=== PATIENT | female | born 1935 | race Caucasian/White ===

== ENCOUNTER 2017-06-02 17:15 | Inpatient (IN) | payer MEDICARE, BC ==
[2017-06-02] MEDS ORDERED: Famotidine 20 MG/2 ML SDV IVPUSH ONE (17:23)
--- NOTE | 2017-06-02 17:23 | EDM.PDOC ---
ED HPI GENERAL MEDICAL PROBLEM - General Chief Complaint: General Stated Complaint: SOB Time Seen by Provider: 06/02/17 17:20 Source of Information: Reports: Patient, Skilled Nursing Records, Old Records ([facility] EMR. No paper hospital chart available.) History Limitations: Reports: Altered Mental Status - History of Present Illness INITIAL COMMENTS - FREE TEXT/NARRATIVE: Patient was brought to the emergency room via transport vehicle from [facility] for evaluation of apparent progressive CHF. Patient is a somewhat poor historian. Blood work was drawn by her regular provider, Marco Petersen, from [facility] [place], earlier today with significantly elevated BNP and history of progressive dyspnea during the last several days. Her son requested that the patient be evaluated in the emergency room despite current comfort care status only. The patient denies any chest pain/pressure, heart flutter, dizziness, orthostasis, orthopnea, diaphoresis, paresthesias, or any other anginal-type symptoms, although progressive dyspnea and decreased exercise tolerance as above. No recent history of abdominal pain, heartburn, nausea, diarrhea, melena, gross hematochezia, or any food intolerance, including fatty foods, etc.. The patient also denies any recent fever, cough, wheezing, etc.. Onset: Gradual, Unknown/Unsure Duration: Day(s): (As above) Location: Reports: Other (No pain) Quality: Reports: Same as Previous Episode (Dyspnea) Improves with: Reports: Rest Worsens with: Reports: Movement (Activity) Context: Reports: Other (As above) Associated Symptoms: Reports: Confusion (Stable baseline), Shortness of Breath. 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: Other (see below) (None) - Related Data Allergies Allergy/AdvReac Type Severity Reaction Status Date / Time simvastatin [From Zocor] Allergy Hives Verified 06/02/17 18:46 Home Meds: Home Meds Cholecalciferol (Vitamin D3) [Vitamin D3] 2,000 units PO Q48H 04/22/17 [History] Apixaban [Eliquis] 2.5 mg PO BID #60 tablet 05/27/17 [Rx] Calcium Carbonate/Vitamin D3 [Calcium 600-Vit D3 800 Tablet] 1 tab PO DAILY #30 tablet 05/27/17 [Rx] Folic Acid 800 mcg PO DAILY #30 tablet 05/27/17 [Rx] Furosemide [Lasix] 40 mg PO DAILY #30 tab 05/27/17 [Rx] Hydroxychloroquine [Plaquenil] 400 mg PO DAILY #30 tablet 05/27/17 [Rx] Methotrexate 7.5 mg PO FR@0800 #10 tablet 05/27/17 [Rx] Metoprolol Succinate [Toprol XL] 6.25 mg PO DAILY #15 tab.er 05/27/17 [Rx] Nitroglycerin [IJP: Nitroglycerin] 0.4 mg SL ASDIRECTED PRN #10 tablet, sublingual 05/27/17 [Rx] Omeprazole 40 mg PO ACBREAKFAST #30 cap.cr 05/27/17 [Rx] Potassium Chloride [Klor-Con 10] 10 meq PO DAILY #30 tab.er 05/27/17 [Rx] Rosuvastatin Calcium 20 mg PO DAILY #15 tablet 05/27/17 [Rx] Timolol Maleate [Timoptic 0.5% Ophth Soln] 1 drop EYEBOTH DAILY #1 bottle [Rx] Acetaminophen [Tylenol Extra Strength] 500 mg PO Q4H PRN 06/02/17 [History] Fluticasone Propionate [Flonase] 1 spray NASBOTH BID 06/02/17 [History] Latanoprost [Latanoprost] 1 drop EYEBOTH BEDTIME 06/02/17 [History] Mag Hydrox/Al Hydrox/Simeth [Antacid Liquid] 30 ml PO DAILY PRN 06/02/17 [ History] Past Medical History HEENT History: Reports: Allergic Rhinitis, Cataract, Glaucoma, Impaired Vision, Macular Degeneration, Other (See Below). Denies: Hard of Hearing, Retinal Detachment Other HEENT History: Patient wears glasses Cardiovascular History: Reports: Afib, Angina, Arrhythmia, CAD, Cardiomyopathy, Heart Failure, Heart Murmur, High Cholesterol, Hypertension, DE, Pulmonary Hypertension, Other (See Below). Denies: Aneurysm, Blood Clots/VTE/DVT, Bypass , Pacemaker, PTCA, Stents Other Cardiovascular History: Non-STEMI 04/23/17 and 06/26/14 with history of multiple MIs in the past and patient apparently a nonoperable candidate. Complete bifascicular bundle-branch block. PVCs. History of combined systolic and diastolic dysfunction with recurrent CHF and cardiomegaly. Moderate mitral valve insufficiency with mild tricuspid valve insufficiency Respiratory History: Reports: Bronchitis, Recurrent, Pneumonia, Recurrent, SOB Gastrointestinal History: Reports: Chronic Constipation, Chronic Diarrhea, GERD Genitourinary History: Reports: Acute Renal Failure, Chronic Renal Insuffiency, Urinary Incontinence, UTI, Recurrent GOLD STAMPER History: Reports: LMP (Approximate): Menopausal Musculoskeletal History: Reports: Arthritis, Back Pain, Chronic, Fracture, Neck Pain, Chronic, Osteoarthritis, Osteoporosis, RA, Other (See Below) Other Musculoskeletal History: right tibial plateau fracture in 2015. Right distal fibula fracture on 11/09/15. Rheumatoid arthritis with current Plaquenil no therapy fracture Neurological History: Reports: Alzheimers Disease, Headaches, Chronic Other Neuro History: Beginning organic brain syndrome Psychiatric History: Reports: Anxiety, Depression Endocrine/Metabolic History: Reports: Osteopenia, Osteoporosis, Vitamin D Deficiency, Other (See Below). Denies: Diabetes, Type I, Diabetes, Type II, Hypothyroidism, IDDM Other Endocrine/Metabolic History: Hyponatremia likely secondary to CHF. Hypomagnesemia Hematologic History: Reports: Anemia, Blood Transfusion(s) Immunologic History: Reports: Immunosuppression (Secondary to Plaquenil therapy) Dermatologic History: Reports: None. Denies: Eczema, Psoriasis, Venous Stasis Dermatitis - Infectious Disease History Infectious Disease History: Reports: Chicken Pox, Measles, Mumps, Shingles - Past Surgical History Head Surgeries/Procedures: Reports: None HEENT Surgical History: Reports: Adenoidectomy, Cataract Surgery, Oral Surgery, Tonsillectomy, Other (See Below) Other HEENT Surgeries/Procedures: Bilateral cataract surgery. Multiple teeth extractions with complete upper dentures and partial lowers Cardiovascular Surgical History: Reports: None. Denies: Varicose, Vascular Surgery Respiratory Surgical History: Reports: None GI Surgical History: Reports: EGD, Other (See Below) Other GI Surgeries/Procedures: Records of EGD not available Female Surgical History: Reports: None Neurological Surgical History: Reports: None Musculoskeletal Surgical History: Reports: Other (See Below) Other Musculoskeletal Surgeries/Procedures:: Excision of apparent multiple rheumatoid nodules from the hands and feet Oncologic Surgical History: Reports: None Dermatological Surgical History: Reports: None - Past Imaging History Past Imaging History: Reports: Angiography (Records not available), Cardiac Echo (Records unavailable), MRI (Right knee on 11/24/14) Social & Family History - Family History Family Medical History: Unobtainable Cardiac: Reports: CAD, Heart Failure, DE, Other (See Below) Other Cardiac Family History: Mother with apparent DE and CHF Neurological: Reports: CVA, Other (See Below) Other Neurological Family History: Father with history of CVA Oncologic: Reports: Bone, Breast, Other (See Below) Other Oncologic Family History: Sister with breast cancer; father with bone cancer - Tobacco Use Smoking Status *Q: Former Smoker Tobacco Use Within Last Twelve Months: No Years of Tobacco use: 28 Packs/Tins Daily: 0.8 Used Tobacco, but Quit: Yes Month Tobacco Last Used: May 2014 Smoking Cessation Information Provided To Patient: No Second Hand Smoke Exposure: No Second Hand Smoke Education Provided: No - Caffeine Use Caffeine Use: Reports: Coffee - Alcohol Use Alcohol Use History: Yes Days Per Week of Alcohol Use: 4 Number of Drinks Per Day: 2 Total Drinks Per Week: 8 Alcohol Use in Last Twelve Months: Yes Alcohol Use Frequency: Socially - Recreational Drug Use Recreational Drug Use: No Drug Use in Last 12 Months: No - Living Situation & Occupation Living situation: Reports: , Extended Care Facility ([facility]) ED ROS GENERAL - Review of Systems Review Of Systems: ROS reveals no pertinent complaints other than HPI. ED EXAM, GENERAL - Physical Exam Exam: See Below Exam Limited By: No Limitations General Appearance: Alert, WD/WN, No Apparent Distress Eye Exam: Bilateral Eye: EOMI, Normal Inspection (No nystagmus. Patient wearing glasses), PERRL Ears: Normal External Exam, Normal Canal, Hearing Grossly Normal, Normal TMs Nose: Normal Inspection, Normal Mucosa, No Blood Throat/Mouth: Normal Inspection, Normal Lips, Normal Gums, Normal Oropharynx, Normal Voice, No Airway Compromise. No: Normal Teeth (Complete upper dentures with partial lowers), Dysphagia, Inflammation, Perioral Cyanosis Head: Atraumatic, Normocephalic. No: Facial Swelling, Facial Tenderness, Sinus Tenderness Neck: Supple, Non-Tender, Full Range of Motion, Carotid Bruit (Mild bilateral carotid bruits versus transmitted heart sounds). No: Limited Range of Motion, Lymphadenopathy (L), Lymphadenopathy (R), Thyromegaly Respiratory/Chest: No Respiratory Distress, No Accessory Muscle Use, Chest Non- Tender, Rales (Mild bilateral basilar rales). No: Pleural Rub, Retractions Cardiovascular: Normal Peripheral Pulses, Regular Rate, Rhythm, No Edema, No Gallop, No JVD, No Rub, Systolic Murmur (23/6 BRET in the aortic and mitral valves). No: Diastolic Murmur, Gallop/S3, Gallop/S4, Friction Rub Peripheral Pulses: 2+: Radial (L), Radial (R), Dorsalis Pedis (L), Dorsalis Pedis (R) GI/Abdominal: Normal Bowel Sounds, Soft, Non-Tender, No Organomegaly, No Distention, No Abnormal Bruit, No Mass. No: Guarding (Female) Exam: Deferred Rectal (Female) Exam: Deferred Back Exam: Normal Inspection, Full Range of Motion. No: CVA Tenderness (L), CVA Tenderness (R), Muscle Spasm Extremities: Normal Range of Motion, Non-Tender, Normal Capillary Refill, Pedal Edema (Trace bilateral pedal/pretibial edema), Other (Mild to moderate rheumatoid changes in her hands. Mild ecchymosis over the extensor surface of the right hand). No: Pineda's Sign Neurological: Alert, CN II-XII Intact, Normal Reflexes (Negative Babinski's), No Motor/Sensory Deficits, Confused (Likely stable baseline mild to moderate organic brain syndrome) Psychiatric: Normal Affect, Normal Mood Skin Exam: Ecchymosis (As above). No: Diaphoretic, Wound/Incision Lymphatic: No Adenopathy EKG INTERPRETATION EKG Date: 06/02/17 Time: 17:41 Rhythm: NSR Rate (Beats/Min): 85 [place]: RAD-Right [place] Deviation (Extended right cardiac axis) P-Wave: Enlarged (Diffuse biphasic P wavesmild) QRS: Other (Complete right bundle branch block/bifascicular bundle-branch block) ST-T: Other (T-wave inversion in leads V3 and V4 with resolution in leads V1 and V2?) QT: Normal [place]/PQ Interval: 0.16 seconds with pulmonary hypertension by EKG Comparison: Change From Previous EKG (As above since last EKG on 05/23/17) EKG Interpretation Comments: 1. Probable anterior wall cardiac ischemia. 2. Complete right bundle branch block/bifascicular bundle-branch block 3. Pulmonary hypertension by EKG Course - Vital Signs Last Recorded V/S: Last Vital Signs Temp 36.8 C 06/02/17 17:20 Pulse 85 06/02/17 19:00 Resp 30 H 06/02/17 19:00 BP 123/87 06/02/17 19:00 Pulse Ox 96 06/02/17 19:00 Vital Signs - 24 hr 06/02/17 06/02/17 06/02/17 17:20 17:45 18:00 Temperature [ 36.8 C Temporal] Pulse, 85 85 84 Peripheral [ Pulse Oximetry] Respiratory 25 H 20 22 H Rate Blood Pressure 109/79 107/73 107/83 [Right Upper Arm] O2 Sat by Pulse 100 99 97 Oximetry 06/02/17 06/02/17 06/02/17 18:15 18:30 19:00 Temperature [ Temporal] Pulse, 84 84 85 Peripheral [ Pulse Oximetry] Respiratory 22 H 25 H 30 H Rate Blood Pressure 111/65 112/60 123/87 [Right Upper Arm] O2 Sat by Pulse 94 L 94 L 96 Oximetry - Orders/Labs/Meds Orders: Active Orders 24 hr Category Date Time Status Cardiac Monitoring [RC] . DIRECTED Care 06/02/17 17:23 Active EKG Documentation Completion [RC] ASDIRECTED Care 06/02/17 17:23 Active Oxygen Therapy, ED [RC] CONTINUOUS Care 06/02/17 17:23 Active Peripheral IV Care [RC] . DIRECTED Care 06/02/17 17:23 Active Pulse Oximetry [RC] CONTINUOUS Care 06/02/17 17:23 Active Up With Assistance [RC] PFP Care 06/02/17 17:23 Active Vital Signs [RC] PFP Care 06/02/17 17:23 Active Nothing per Oral Now Diet [DIET] Diet 06/02/17 Breakfast Active Chest 1V Frontal [CR] Stat Exams 06/02/17 17:23 Taken OCCULT BLOOD DIAGNOSTIC [OP] Stat Lab 06/02/17 18:55 Ordered Enoxaparin [Lovenox] Med 06/02/17 19:00 Active 60 mg SUBCUT Q24H Nitroglycerin/D5W [Nitroglycerin 25 MG/D5W 250 ML] Med 06/02/17 18:15 Active 25 mg in 250 ml IV TITRATE Sodium Chloride 0.9% [Normal Saline] 1,000 ml Med 06/02/17 18:15 Active IV ASDIRECTED Sodium Chloride 0.9% [Saline Flush] Med 06/02/17 17:23 Active 10 ml FLUSH ASDIRECTED PRN Obtain Past Medical Record [OM.PC] Urgent Oth 06/02/17 17:23 Active Peripheral IV Insertion Adult [OM.PC] Stat Oth 06/02/17 17:23 Ordered Resuscitation Status Stat Resus Stat 06/02/17 17:23 Ordered Medication Orders Enoxaparin Sodium (Lovenox) 60 mg SUBCUT Q24H [facility] Last Admin: 06/02/17 18:56 Dose: 60 mg Nitroglycerin/Dextrose (Nitroglycerin 25 Mg/D5w 250 Ml) 25 mg in 250 mls @ 3 mls/hr IV TITRATE ROBERT PRN Reason: 5 MCG/MIN Last Admin: 06/02/17 18:22 Dose: 5 mcg/min, 3 mls/hr Sodium Chloride (Normal Saline) 1,000 mls @ 30 mls/hr IV ASDIRECTED ROBERT Last Admin: 06/02/17 18:22 Dose: 30 mls/hr Sodium Chloride (Saline Flush) 10 ml FLUSH ASDIRECTED PRN PRN Reason: Keep Vein Open Last Admin: 06/02/17 18:14 Dose: 10 ml Admin: 06/02/17 18:02 Dose: 10 ml Labs: Laboratory Tests 06/02/17 06/02/17 06/02/17 Range/Units 17:38 17:38 17:38 WBC 10.4 H (4.0-10.2) K/uL RBC 4.07 (3.77-5.09) M/uL Hgb 13.6 (11.7-15.5) g/dL Hct 41.4 (34.0-46.0) % MCV 101.7 H (84.0-98.0) fL MCH 33.4 H (28.2-33.3) pg MCHC 32.9 (31.7-36.0) g/dL RDW 15.6 H (11.2-14.1) % Plt Count 203 (150-350) K/uL Neut % (Auto) 81.3 H (45.0-80.0) % Lymph % (Auto) 10.5 (10.0-50.0) % [place] % (Auto) 7.2 (2.0-14.0) % Eos % (Auto) 0.4 (0.0-5.0) % Baso % (Auto) 0.6 (0.0-2.0) % Neut # (Auto) 8.45 H (1.40-7.00) K/uL Lymph # (Auto) 1.09 (0.50-3.50) K/uL [place] # (Auto) 0.75 (0.00-1.00) K/uL Eos # (Auto) 0.04 (0.00-0.50) K/uL Baso # (Auto) 0.06 (0.00-0.20) K/uL PT 12.9 H (9.8-11.7) SEC INR 1.2 APTT 28.2 (22.1-29.8) SEC D-Dimer, Quantitative 448 H (0-400) ng/mL Lactic Acid (0.4-2.0) mmol/L Uric Acid (2.6-7.2) mg/dL Magnesium (1.8-2.4) mg/dL Creatine Kinase (26-308) U/L Creatine Kinase Index (0.0-2.5) % CK-MB (CK-2) (0.00-3.60) ng/mL Troponin I (0.000-0.056) ng/mL TSH, Ultra Sensitive (0.358-3.740) mIU/mL 06/02/17 06/02/17 Range/Units 17:38 17:38 WBC (4.0-10.2) K/uL RBC (3.77-5.09) M/uL Hgb (11.7-15.5) g/dL Hct (34.0-46.0) % MCV (84.0-98.0) fL MCH (28.2-33.3) pg MCHC (31.7-36.0) g/dL RDW (11.2-14.1) % Plt Count (150-350) K/uL Neut % (Auto) (45.0-80.0) % Lymph % (Auto) (10.0-50.0) % [place] % (Auto) (2.0-14.0) % Eos % (Auto) (0.0-5.0) % Baso % (Auto) (0.0-2.0) % Neut # (Auto) (1.40-7.00) K/uL Lymph # (Auto) (0.50-3.50) K/uL [place] # (Auto) (0.00-1.00) K/uL Eos # (Auto) (0.00-0.50) K/uL Baso # (Auto) (0.00-0.20) K/uL PT (9.8-11.7) SEC INR APTT (22.1-29.8) SEC D-Dimer, Quantitative (0-400) ng/mL Lactic Acid 1.4 (0.4-2.0) mmol/L Uric Acid 10.1 H (2.6-7.2) mg/dL Magnesium 1.8 (1.8-2.4) mg/dL Creatine Kinase 169 (26-308) U/L Creatine Kinase Index 5.9 H (0.0-2.5) % CK-MB (CK-2) 10.00 H* (0.00-3.60) ng/mL Troponin I 2.667 H* (0.000-0.056) ng/mL TSH, Ultra Sensitive 3.918 H (0.358-3.740) mIU/mL Blood work ordered by [facility] earlier today does show a BUN of 43, creatinine 1.47, AST 63, and BNP of 18,162. Sodium normal at 136 with potassium of 5.1 and CO2 of 23.4 Hemoccult from bowel movement in the emergency room shows brown stool with no gross hematochezia with only trace possible positive Hemoccult Meds: Medications Generic Name Dose Route Start Last Admin Trade Name Freq PRN Reason Stop Dose Admin Enoxaparin Sodium 60 mg 06/02/17 19:00 06/02/17 18:56 Lovenox SUBCUT 60 mg Q24H ROBERT Administration Nitroglycerin/Dextrose 25 mg in 250 mls @ 3 mls/hr 06/02/17 18:15 06/02/17 18 :22 Nitroglycerin 25 Mg/D5w 250 Ml IV 5 mcg/min TITRATE ROBERT 3 mls/hr 5 MCG/MIN Administration Sodium Chloride 1,000 mls @ 30 mls/hr 06/02/17 18:15 06/02/17 18:22 Normal Saline IV 30 mls/hr ASDIRECTED ROBERT Administration Sodium Chloride 10 ml 06/02/17 17:23 06/02/17 18:14 Saline Flush FLUSH 10 ml ASDIRECTED PRN Administration Keep Vein Open Discontinued Medications Generic Name Dose Route Start Last Admin Trade Name Jeanmarieq PRN Reason Stop Dose Admin Famotidine 40 mg 06/02/17 17:23 06/02/17 18:02 Pepcid IVPUSH 06/02/17 17:24 40 mg ONETIME ONE Administration Furosemide 60 mg 06/02/17 18:08 06/02/17 18:13 Lasix IVPUSH 06/02/17 18:09 60 mg NOW ONE Administration - Radiology Interpretation Free Text/Narrative:: 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 No pneumothorax or significant pulmonary infiltrates Departure - Departure Time of Disposition: 19:25 Disposition: Admitted As Inpatient 67 Condition: Poor Clinical Impression: DE, Myocardial infarction, CHF, Congestive heart failure, Renal insufficiency, Elevated LFTs, Peptic reflux disease, Organic brain syndrome, Palliative care patient Hypertension Qualifiers: Hypertension type: essential hypertension Qualified Code(s): I10 - Essential ( primary) hypertension Hyperlipidemia Qualifiers: Hyperlipidemia type: mixed hyperlipidemia Qualified Code(s): E78.2 - Mixed hyperlipidemia Rheumatoid arthritis Qualifiers: Rheumatoid arthritis location: multiple sites Rheumatoid factor presence: unspecified presence Qualified Code(s): M06.9 - Rheumatoid arthritis, unspecified - Discharge Information - Problem List & Annotations (1) DE, Myocardial infarction SNOMED Code(s): 96603187 Code(s): I21.9 - ACUTE MYOCARDIAL INFARCTION, UNSPECIFIED Status: Acute Priority: High Current Visit: Yes Onset Date: ~06/02/17 Annotation/Comment :: Known history of coronary artery disease. Elevated troponin I and CK index. Note comfort care, which was confirmed by the patient's son, Jovan during telephone consultation today. Chest pain protocol was initiated upon patient's arrival to the emergency room, although no true anginal complaints prior to admission. 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 She is apparently a nonoperable candidate with low-dose IV nitroglycerin infusion started in the emergency room. No ASA or Brilinta were given secondary to her current Eliquis Romolo which will now be held, with initiation of cardiac dose subcutaneous Lovenox initiated in the emergency room. Note previous history of atrial fibrillation, PVCs and complete bifascicular bundle-branch block. Cardiac enzymes, etc. will next be repeated in the a.m. secondary to comfort care status. Long-term prognosis poor (2) CHF, Congestive heart failure SNOMED Code(s): 67373689 Code(s): I50.9 - HEART FAILURE, UNSPECIFIED Status: Acute Priority: High Current Visit: Yes Onset Date: ~06/02/17 Annotation/Comment:: High-dose IV Lasix therapy initiated in the emergency room. Comfort care as above with no echocardiogram, cardiology referral, transfer, etc. per their request (3) Palliative care patient SNOMED Code(s): 971072046 Code(s): Z51.5 - ENCOUNTER FOR PALLIATIVE CARE Status: Chronic Priority: Medium Current Visit: Yes Annotation/Comment:: As above (4) Elevated LFTs SNOMED Code(s): 299273951 Code(s): R79.89 - OTHER SPECIFIED ABNORMAL FINDINGS OF BLOOD CHEMISTRY Status: Acute Priority: Medium Current Visit: Yes Onset Date: 06/02/17 Annotation/Comment:: LFTs elevation likely secondary to CHF (5) Hyperlipidemia SNOMED Code(s): 54495025 Code(s): E78.5 - HYPERLIPIDEMIA, UNSPECIFIED Status: Chronic Priority: Medium Current Visit: Yes Annotation/Comment:: Lipid panel and glycosylated hemoglobin in the a.m. Qualifiers: Hyperlipidemia type: mixed hyperlipidemia Qualified Code(s): E78.2 - Mixed hyperlipidemia (6) Hypertension SNOMED Code(s): 69478784 Code(s): I10 - ESSENTIAL (PRIMARY) HYPERTENSION Status: Chronic Priority : Medium Current Visit: Yes Annotation/Comment:: Blood pressure somewhat low in the emergency room. Nitroglycerin infusion with caution Qualifiers: Hypertension type: essential hypertension Qualified Code(s): I10 - Essential (primary) hypertension (7) Organic brain syndrome SNOMED Code(s): 353270098 Code(s): F09 - UNSP MENTAL DISORDER DUE TO KNOWN PHYSIOLOGICAL CONDITION Status: Chronic Priority: Medium Current Visit: Yes Annotation/Comment:: Stable by history (8) Peptic reflux disease SNOMED Code(s): 16946442 Code(s): K21.9 - GASTRO-ESOPHAGEAL REFLUX DISEASE WITHOUT ESOPHAGITIS Status: Chronic Priority: Medium Current Visit: Yes Annotation/Comment:: No abdominal complaints. High-dose IV Pepcid given as GI prophylaxis (9) Renal insufficiency SNOMED Code(s): 944086052 Code(s): N28.9 - DISORDER OF KIDNEY AND URETER, UNSPECIFIED Status: Chronic Priority: Medium Current Visit: Yes Annotation/Comment:: Continue to observe her renal status closely secondary to IV Lasix therapy (10) Rheumatoid arthritis SNOMED Code(s): 89577024 Code(s): M06.9 - RHEUMATOID ARTHRITIS, UNSPECIFIED Status: Chronic Priority: Medium Current Visit: Yes Annotation/Comment:: Stable by history with current Plaquenil Qualifiers: Rheumatoid arthritis location: multiple sites Rheumatoid factor presence: unspecified presence Qualified Code(s): M06.9 - Rheumatoid arthritis, unspecified - Problem List Review Problem List Initiated/Reviewed/Updated: Yes - My Orders Last 24 Hours: My Active Orders 06/02/17 17:23 Cardiac Monitoring [RC] . DIRECTED EKG Documentation Completion [RC] ASDIRECTED Oxygen Therapy, ED [RC] CONTINUOUS Peripheral IV Care [RC] . DIRECTED Pulse Oximetry [RC] CONTINUOUS Up With Assistance [RC] PFP Vital Signs [RC] PFP Chest 1V Frontal [CR] Stat Sodium Chloride 0.9% [Saline Flush] 10 ml FLUSH ASDIRECTED PRN Obtain Past Medical Record [OM.PC] Urgent Peripheral IV Insertion Adult [OM.PC] Stat Resuscitation Status Stat 06/02/17 18:15 Nitroglycerin/D5W [Nitroglycerin 25 MG/D5W 250 ML] 25 mg in 250 ml IV TITRATE Sodium Chloride 0.9% [Normal Saline] 1,000 ml IV ASDIRECTED 06/02/17 18:55 OCCULT BLOOD DIAGNOSTIC [OP] Stat 06/02/17 19:00 Enoxaparin [Lovenox] 60 mg SUBCUT Q24H 06/02/17 Breakfast Nothing per Oral Now Diet [DIET] - Assessment/Plan Admission H&P: Please use this note as an admission H&P Last 24 Hours: My Active Orders 06/02/17 17:23 Cardiac Monitoring [RC] . DIRECTED EKG Documentation Completion [RC] ASDIRECTED Oxygen Therapy, ED [RC] CONTINUOUS Peripheral IV Care [RC] . DIRECTED Pulse Oximetry [RC] CONTINUOUS Up With Assistance [RC] PFP Vital Signs [RC] PFP Chest 1V Frontal [CR] Stat Sodium Chloride 0.9% [Saline Flush] 10 ml FLUSH ASDIRECTED PRN Obtain Past Medical Record [OM.PC] Urgent Peripheral IV Insertion Adult [OM.PC] Stat Resuscitation Status Stat 06/02/17 18:15 Nitroglycerin/D5W [Nitroglycerin 25 MG/D5W 250 ML] 25 mg in 250 ml IV TITRATE Sodium Chloride 0.9% [Normal Saline] 1,000 ml IV ASDIRECTED 06/02/17 18:55 OCCULT BLOOD DIAGNOSTIC [OP] Stat 06/02/17 19:00 Enoxaparin [Lovenox] 60 mg SUBCUT Q24H 06/02/17 Breakfast Nothing per Oral Now Diet [DIET] Assessment:: As above. Plan: As above. Extensive precautions were given to the patient and her son as above, who are in agreement with the treatment plan. The patient will require about 3- 4 days of inpatient/acute care secondary to multiple health problems as above. [facility] assumes care in the a.m.
[2017-06-02] MEDS: Sodium Chloride 0.9% 10 ML Syringe FLUSH PRN ×2 (18:02→18:14)
[2017-06-02] MEDS ORDERED: Furosemide 40 MG/4 ML VIAL IVPUSH ONE (18:08)
[2017-06-02] MEDS ORDERED: Nitroglycerin/D5W 25 MG/250 ML BOTTLE IV SCH (18:15)
[2017-06-02] MEDS ORDERED: Sodium Chloride 0.9% 1,000 ML IV SCH (18:15)
[2017-06-02] MEDS ORDERED: Enoxaparin 60 MG/0.6 ML Syringe SUBCUT SCH (19:00)
[2017-06-02] MEDS ORDERED: Aluminum Hydroxide/Magnesium Hydroxide/Simethicone 355 ML Bottle PO PRN (19:37)
[2017-06-02] MEDS ORDERED: Sodium Chloride 0.9% 10 ML Syringe FLUSH PRN (19:40)
[2017-06-02] MEDS: Acetaminophen 325 MG Tab PO PRN (22:00)
[2017-06-02] MEDS: Latanoprost 0.005% Ophth Soln 2.5 ML Bottle EYEBOTH SCH (22:02)
[2017-06-03] MEDS: Sodium Chloride 0.9% 10 ML Syringe FLUSH PRN ×6 (00:08→17:37)
[2017-06-03] MEDS: Furosemide 40 MG/4 ML VIAL IVPUSH SCH ×2 (00:08→08:10)
[2017-06-03] MEDS ORDERED: Hydroxychloroquine 200 MG Tab PO SCH (08:00)
[2017-06-03] MEDS: Fluticasone Propionate Nasal Spray 16 GM Bottle NASBOTH SCH ×2 (08:08→17:36)
[2017-06-03] MEDS: Timolol Maleate 0.5% Ophth Soln 5 ML Bottle EYEBOTH SCH (08:09)
[2017-06-03] MEDS: Rosuvastatin 10 MG Tab PO SCH (08:09)
[2017-06-03] MEDS: Folic Acid 1 MG Tab PO SCH (08:11)
[2017-06-03] MEDS: Metoprolol Succinate 25 MG Tab.ER PO SCH (08:11)
[2017-06-03] MEDS: Potassium Chloride 20 MEQ Tab.ER PO SCH ×2 (08:11→12:00)
[2017-06-03] MEDS: Acetaminophen 325 MG Tab PO PRN (14:49)
[2017-06-03] MEDS ORDERED: Morphine 2 MG/ML Syringe IVPUSH PRN (15:00)
[2017-06-03] MEDS ORDERED: Sodium Chloride 0.9% Inhalation Soln 3 ML Neb NEB PRN (15:00)
[2017-06-03] MEDS ORDERED: Morphine 2 MG/ML Syringe PRN (15:00)
[2017-06-03] MEDS ORDERED: LORazepam 2 MG/ML MDV IVPUSH PRN (15:00)
[2017-06-03] MEDS ORDERED: methylPREDNISolone Sodium Succinate 125 MG/2 ML SDV IVPUSH ONE (15:05)
[2017-06-03] MEDS ORDERED: AMINOPHYLLINE IV ONE (15:30)
[2017-06-03] MEDS ORDERED: SODIUM CHLORIDE 0.9% IV ONE (15:30)
--- NOTE | 2017-06-03 15:31 | PCM.PN ---
- General Info Date of Service: 06/03/17 Functional Status: Reports: Other (pain right shoulder) - Review of Systems General: Reports: Weakness HEENT: Reports: No Symptoms Pulmonary: Reports: Shortness of Breath Cardiovascular: Reports: No Symptoms Gastrointestinal: Reports: No Symptoms Genitourinary: Reports: No Symptoms Musculoskeletal: Reports: Shoulder Pain Skin: Reports: No Symptoms Neurological: Reports: Weakness Psychiatric: Reports: No Symptoms - Patient Data Vitals - Most Recent: Last Vital Signs Temp 97.7 F 06/03/17 12:00 Pulse 86 06/03/17 12:00 Resp 17 06/03/17 12:00 BP 97/72 06/03/17 12:00 Pulse Ox 94 L 06/03/17 12:00 Weight - Most Recent: 113 lb 12.8 oz I&O - Last 24 Hours: Intake & Output 06/03/17 06/03/17 06/03/17 06:59 14:59 22:59 Intake Total 293 Output Total 900 Balance -607 Lab Results Last 24 Hours: Laboratory Results - last 24 hr 06/03/17 06/03/17 06/03/17 Range/Units 06:48 06:48 06:48 WBC 6.2 (4.0-10.2) K/uL RBC 3.43 L (3.77-5.09) M/uL Hgb 11.4 L D (11.7-15.5) g/dL Hct 34.5 (34.0-46.0) % MCV 100.6 H (84.0-98.0) fL MCH 33.2 (28.2-33.3) pg MCHC 33.0 (31.7-36.0) g/dL RDW 15.2 H (11.2-14.1) % Plt Count 177 (150-350) K/uL Neut % (Auto) 73.5 (45.0-80.0) % Lymph % (Auto) 15.5 (10.0-50.0) % [place] % (Auto) 9.1 (2.0-14.0) % Eos % (Auto) 0.6 (0.0-5.0) % Baso % (Auto) 1.3 (0.0-2.0) % Neut # (Auto) 4.58 (1.40-7.00) K/uL Lymph # (Auto) 0.97 (0.50-3.50) K/uL [place] # (Auto) 0.57 (0.00-1.00) K/uL Eos # (Auto) 0.04 (0.00-0.50) K/uL Baso # (Auto) 0.08 (0.00-0.20) K/uL D-Dimer, Quantitative 264 (0-400) ng/mL Sodium 138 (136-145) mmol/L Potassium 4.0 (3.5-5.1) mmol/L Chloride 101 (98-107) mmol/L Carbon Dioxide 23.8 (21.0-32.0) mmol/L BUN 40 H (7-18) mg/dL Creatinine 1.46 H (0.51-1.17) mg/dL Est Cr Clr Drug Dosing 25.04 mL/min Estimated GFR (MDRD) 34 mL/min Glucose 81 (74-106) mg/dL Hemoglobin A1c (4.3-5.7) % Calcium 9.3 (8.5-10.1) mg/dL Total Bilirubin 0.9 (0.2-1.0) mg/dL AST 43 H (15-37) U/L ALT 41 (12-78) U/L Alkaline Phosphatase 87 (46-116) IU/L Creatine Kinase 128 (26-308) U/L Creatine Kinase Index 6.5 H (0.0-2.5) % CK-MB (CK-2) 8.30 H* (0.00-3.60) ng/mL Troponin I 2.339 H* (0.000-0.056) ng/mL C-Reactive Protein (<=0.9) mg/dL NT-Pro-B Natriuret Pep 47639 H (0-125) pg/mL Total Protein 5.9 L (6.4-8.2) g/dL Albumin 3.2 L (3.4-5.0) g/dL Triglycerides 60 (30-150) mg/dL Cholesterol 75 L (100-200) mg/dL LDL Cholesterol, Calc 22 (0-100) mg/dL HDL Cholesterol 41 (40-60) mg/dL 06/03/17 06/03/17 Range/Units 06:48 06:48 WBC (4.0-10.2) K/uL RBC (3.77-5.09) M/uL Hgb (11.7-15.5) g/dL Hct (34.0-46.0) % MCV (84.0-98.0) fL MCH (28.2-33.3) pg MCHC (31.7-36.0) g/dL RDW (11.2-14.1) % Plt Count (150-350) K/uL Neut % (Auto) (45.0-80.0) % Lymph % (Auto) (10.0-50.0) % [place] % (Auto) (2.0-14.0) % Eos % (Auto) (0.0-5.0) % Baso % (Auto) (0.0-2.0) % Neut # (Auto) (1.40-7.00) K/uL Lymph # (Auto) (0.50-3.50) K/uL [place] # (Auto) (0.00-1.00) K/uL Eos # (Auto) (0.00-0.50) K/uL Baso # (Auto) (0.00-0.20) K/uL D-Dimer, Quantitative (0-400) ng/mL Sodium (136-145) mmol/L Potassium (3.5-5.1) mmol/L Chloride (98-107) mmol/L Carbon Dioxide (21.0-32.0) mmol/L BUN (7-18) mg/dL Creatinine (0.51-1.17) mg/dL Est Cr Clr Drug Dosing mL/min Estimated GFR (MDRD) mL/min Glucose (74-106) mg/dL Hemoglobin A1c 5.5 (4.3-5.7) % Calcium (8.5-10.1) mg/dL Total Bilirubin (0.2-1.0) mg/dL AST (15-37) U/L ALT (12-78) U/L Alkaline Phosphatase (46-116) IU/L Creatine Kinase (26-308) U/L Creatine Kinase Index (0.0-2.5) % CK-MB (CK-2) (0.00-3.60) ng/mL Troponin I (0.000-0.056) ng/mL C-Reactive Protein 1.0 H (<=0.9) mg/dL NT-Pro-B Natriuret Pep (0-125) pg/mL Total Protein (6.4-8.2) g/dL Albumin (3.4-5.0) g/dL Triglycerides (30-150) mg/dL Cholesterol (100-200) mg/dL LDL Cholesterol, Calc (0-100) mg/dL HDL Cholesterol (40-60) mg/dL Jacinto Results Last 24 Hours: Microbiology 06/03/17 08:40 Stool Occult Blood (JACINTO) - Final Stool / Feces NEGATIVE OCCULT BLOOD 06/03/17 08:40 Stool Occult Blood (JACINTO) - Final Stool / Feces NEGATIVE OCCULT BLOOD Med Orders - Current: Current Medications Acetaminophen (Tylenol) 650 mg PO Q4H PRN PRN Reason: Pain Last Admin: 06/03/17 14:49 Dose: 650 mg Al Hydroxide/Mg Hydroxide (Maalox Advanced) 30 ml PO DAILY PRN PRN Reason: gi upset Enoxaparin Sodium (Lovenox) 30 mg SUBCUT Q24H [facility] Famotidine (Pepcid) 20 mg IVPUSH Q24H [facility] Fluticasone Propionate (Flonase) 0 gm NASBOTH BID [facility] Last Admin: 06/03/17 08:08 Dose: 1 spray Folic Acid (Folic Acid) 1 mg PO DAILY [facility] Last Admin: 06/03/17 08:11 Dose: 1 mg Hydroxychloroquine Sulfate (Plaquenil) 200 mg PO DAILY [facility] Aminophylline 300 mg/ Sodium (Chloride) 112 mls @ 200 mls/hr IV ONETIME ONE Stop: 06/03/17 16:03 Latanoprost (Xalatan 0.005% Ophth Soln) 0 ml EYEBOTH BEDTIME [facility] Last Admin: 06/02/17 22:02 Dose: Not Given Lorazepam (Ativan) 0.5 mg IVPUSH Q4H PRN PRN Reason: Dyspnea Methylprednisolone Sodium Succinate (Solu-Medrol) 40 mg IVPUSH Q12HR [facility] Metoprolol Succinate (Toprol Xl) 6.25 mg PO DAILY [facility] Last Admin: 06/03/17 08:11 Dose: 6.25 mg Morphine Sulfate (Morphine) 1 mg IVPUSH Q1H PRN PRN Reason: Dyspnea Morphine Sulfate (Morphine) 0.5 mg .XX Q2H PRN PRN Reason: Dyspnea Rosuvastatin Calcium (Crestor) 20 mg PO DAILY [facility] Last Admin: 06/03/17 08:09 Dose: 20 mg Sodium Chloride (Saline Flush) 10 ml FLUSH ASDIRECTED PRN PRN Reason: Keep Vein Open Last Admin: 06/03/17 15:17 Dose: 10 ml Sodium Chloride (Saline Flush) 10 ml FLUSH Q12HR [facility] Sodium Chloride (Sodium Chloride 0.9%) 3 ml NEB Q2H PRN PRN Reason: Shortness of Breath Sodium Chloride (Sodium Chloride 0.9%) 3 ml INH Q2H PRN PRN Reason: Dyspnea Temazepam (Restoril) 15 mg PO BEDTIME PRN PRN Reason: Insomnia Timolol Maleate (Timoptic 0.5% Ophth Soln) 0 ml EYEBOTH DAILY [facility] Last Admin: 06/03/17 08:09 Dose: 1 drop Discontinued Medications Enoxaparin Sodium (Lovenox) 60 mg SUBCUT Q24H [facility] Last Admin: 06/02/17 18:56 Dose: 60 mg Famotidine (Pepcid) 40 mg IVPUSH ONETIME ONE Stop: 06/02/17 17:24 Last Admin: 06/02/17 18:02 Dose: 40 mg Furosemide (Lasix) 60 mg IVPUSH NOW ONE Stop: 06/02/17 18:09 Last Admin: 06/02/17 18:13 Dose: 60 mg Furosemide (Lasix) 40 mg IVPUSH Q8H [facility] Last Admin: 06/03/17 08:10 Dose: 40 mg Hydroxychloroquine Sulfate (Plaquenil) 400 mg PO DAILY [facility] Last Admin: 06/03/17 08:15 Dose: 400 mg Nitroglycerin/Dextrose (Nitroglycerin 25 Mg/D5w 250 Ml) 25 mg in 250 mls @ 3 mls/hr IV TITRATE [facility] PRN Reason: 5 MCG/MIN Last Admin: 06/02/17 18:22 Dose: 5 mcg/min, 3 mls/hr Sodium Chloride (Normal Saline) 1,000 mls @ 30 mls/hr IV ASDIRECTED [facility] Last Admin: 06/02/17 18:22 Dose: 30 mls/hr Methotrexate (Methotrexate) 7.5 mg PO FR@0800 [facility] Methylprednisolone Sodium Succinate (Solu-Medrol) 80 mg IVPUSH ONETIME ONE Stop: 06/03/17 15:06 Last Admin: 06/03/17 15:17 Dose: 80 mg Potassium Chloride (Klor-Con M20) 20 meq PO TID ROBERT Last Admin: 06/03/17 12:00 Dose: 20 meq Sodium Chloride (Saline Flush) 10 ml FLUSH Q12HR PRN PRN Reason: Keep Vein Open - Exam Quality Assessment: Supplemental Oxygen, DVT Prophylaxis General: Alert, Cooperative, Mild Distress HEENT: Mucous Membr. Moist/[place] Neck: Trachea Midline, No JVD Lungs: Decreased Breath Sounds, Crackles (bibasilar) Cardiovascular: Irregular Rhythm, Murmurs (mitral insufficiency) GI/Abdominal Exam: Soft, Non-Tender, No Distention (Female) Exam: Deferred Back Exam: Other (kyphosis) Extremities: Non-Tender, No Pedal Edema, Limited Range of Motion Skin: Warm, Dry, Intact Neurological: No New Focal Deficit Psy/Mental Status: Alert, Normal Affect, Normal Mood - Problem List & Annotations (1) CHF, Congestive heart failure SNOMED Code(s): 41754443 Code(s): I50.9 - HEART FAILURE, UNSPECIFIED Status: Acute Priority: High Current Visit: Yes Onset Date: ~06/02/17 Annotation/Comment:: High-dose IV Lasix therapy initiated in the emergency room. Comfort care as above with no echocardiogram, cardiology referral, transfer, etc. per their request (2) Elevated LFTs SNOMED Code(s): 629730228 Code(s): R79.89 - OTHER SPECIFIED ABNORMAL FINDINGS OF BLOOD CHEMISTRY Status: Acute Priority: Medium Current Visit: Yes Onset Date: 06/02/17 Annotation/Comment:: LFTs elevation likely secondary to CHF (3) NC, Myocardial infarction SNOMED Code(s): 92960349 Code(s): I21.9 - ACUTE MYOCARDIAL INFARCTION, UNSPECIFIED Status: Acute Priority: High Current Visit: Yes Onset Date: ~06/02/17 Annotation/Comment :: Known history of coronary artery disease. Elevated troponin I and CK index. Note comfort care, which was confirmed by the patient's son, Jovan during telephone consultation today. Chest pain protocol was initiated upon patient's arrival to the emergency room, although no true anginal complaints prior to admission. 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 She is apparently a nonoperable candidate with low-dose IV nitroglycerin infusion started in the emergency room. No ASA or Brilinta were given secondary to her current Eliquis Romolo which will now be held, with initiation of cardiac dose subcutaneous Lovenox initiated in the emergency room. Note previous history of atrial fibrillation, PVCs and complete bifascicular bundle-branch block. Cardiac enzymes, etc. will next be repeated in the a.m. secondary to comfort care status. Long-term prognosis poor (4) Hyperlipidemia SNOMED Code(s): 51511785 Code(s): E78.5 - HYPERLIPIDEMIA, UNSPECIFIED Status: Chronic Priority: Medium Current Visit: Yes Qualifiers: Hyperlipidemia type: mixed hyperlipidemia Qualified Code(s): E78.2 - Mixed hyperlipidemia Annotation/Comment:: Lipid panel and glycosylated hemoglobin in the a.m. (5) Hypertension SNOMED Code(s): 48788059 Code(s): I10 - ESSENTIAL (PRIMARY) HYPERTENSION Status: Chronic Priority : Medium Current Visit: Yes Qualifiers: Hypertension type: essential hypertension Qualified Code(s): I10 - Essential (primary) hypertension Annotation/Comment:: Blood pressure somewhat low in the emergency room. Nitroglycerin infusion with caution (6) Palliative care patient SNOMED Code(s): 657472641 Code(s): Z51.5 - ENCOUNTER FOR PALLIATIVE CARE Status: Chronic Priority: Medium Current Visit: Yes Annotation/Comment:: As above (7) Peptic reflux disease SNOMED Code(s): 33045593 Code(s): K21.9 - GASTRO-ESOPHAGEAL REFLUX DISEASE WITHOUT ESOPHAGITIS Status: Chronic Priority: Medium Current Visit: Yes Annotation/Comment:: No abdominal complaints. High-dose IV Pepcid given as GI prophylaxis (8) Renal insufficiency SNOMED Code(s): 636216429 Code(s): N28.9 - DISORDER OF KIDNEY AND URETER, UNSPECIFIED Status: Chronic Priority: Medium Current Visit: Yes Annotation/Comment:: Continue to observe her renal status closely secondary to IV Lasix therapy (9) Rheumatoid arthritis SNOMED Code(s): 00274983 Code(s): M06.9 - RHEUMATOID ARTHRITIS, UNSPECIFIED Status: Chronic Priority: Medium Current Visit: Yes Qualifiers: Rheumatoid arthritis location: multiple sites Rheumatoid factor presence: unspecified presence Qualified Code(s): M06.9 - Rheumatoid arthritis, unspecified Annotation/Comment:: Stable by history with current Plaquenil (10) Myocardial ischemia SNOMED Code(s): 066015454 Code(s): I25.9 - CHRONIC ISCHEMIC HEART DISEASE, UNSPECIFIED Status: Acute Priority: Medium Current Visit: No Onset Date: 06/26/14 (11) Troponin level elevated SNOMED Code(s): 472785006, 329802840 Code(s): R79.89 - OTHER SPECIFIED ABNORMAL FINDINGS OF BLOOD CHEMISTRY Status: Acute Current Visit: No - Problem List Review Problem List Initiated/Reviewed/Updated: Yes - My Orders Last 24 Hours: My Active Orders 06/03/17 15:00 LORazepam [Ativan] 0.5 mg IVPUSH Q4H PRN Morphine 0.5 mg .XX Q2H PRN Morphine 1 mg IVPUSH Q1H PRN Sodium Chloride 0.9% 3 ml NEB Q2H PRN 06/03/17 15:30 Aminophylline 300 mg Sodium Chloride 0.9% [Normal Saline] 100 ml IV ONETIME 06/03/17 16:00 Sodium Chloride 0.9% 3 ml INH Q2H PRN 06/03/17 19:00 Enoxaparin [Lovenox] 30 mg SUBCUT Q24H 06/03/17 20:00 Sodium Chloride 0.9% [Saline Flush] 10 ml FLUSH Q12HR methylPREDNISolone Sod Succ [Solu-MEDROL] 40 mg IVPUSH Q12HR 06/04/17 05:11 BLOOD GAS VENOUS [BG] Routine CBC WITH AUTO DIFF [HEME] DAILY CMP [COMPREHENSIVE METABOLIC PN,CMP] [CHEM] Routine TROPONIN I [CHEM] Routine 06/04/17 08:00 Hydroxychloroquine [Plaquenil] 200 mg PO DAILY 06/05/17 05:11 CBC WITH AUTO DIFF [HEME] DAILY 06/06/17 05:11 CBC WITH AUTO DIFF [HEME] DAILY - Plan Plan:: 06/03/17 Eva Dent MD Still short of breath. No chest pain. See orders.
[2017-06-03] MEDS ORDERED: Sodium Chloride 0.9% Inhalation Soln 3 ML Neb INH PRN (16:00)
[2017-06-03] MEDS ORDERED: Famotidine 20 MG/2 ML SDV IVPUSH SCH (18:00)
[2017-06-03] MEDS: Latanoprost 0.005% Ophth Soln 2.5 ML Bottle EYEBOTH SCH (19:55)
[2017-06-03] MEDS: Enoxaparin 30 MG/0.3 ML Syringe SUBCUT SCH (19:55)
[2017-06-03] MEDS: methylPREDNISolone Sodium Succinate 40 MG/1 ML SDV IVPUSH SCH (19:56)
[2017-06-03] MEDS: Sodium Chloride 0.9% 10 ML Syringe FLUSH SCH (19:56)
[2017-06-04] MEDS: Temazepam 15 MG Cap PO PRN ×2 (00:33→19:48)
[2017-06-04 06:47] LABS: O2 DELIVERY DEVICE NASAL CANNULA
[2017-06-04 07:22] LABS: BASE EXCESS VENOUS -1 mmol/L ((-2)-3); BICARBONATE,VENOUS 23 mmol/L (23-28); O2 SATURATION VENOUS 99 %; PCO2 VENOUS 34 mmHG (41-51); PH,VENOUS 7.45 (7.31-7.41); PO2 VENOUS 127 mmHG
[2017-06-04] MEDS: Fluticasone Propionate Nasal Spray 16 GM Bottle NASBOTH SCH ×2 (07:27→17:26)
[2017-06-04] MEDS: Metoprolol Succinate 25 MG Tab.ER PO SCH (07:28)
[2017-06-04] MEDS: Folic Acid 1 MG Tab PO SCH (07:28)
[2017-06-04] MEDS: Rosuvastatin 10 MG Tab PO SCH (07:28)
[2017-06-04] MEDS: methylPREDNISolone Sodium Succinate 40 MG/1 ML SDV IVPUSH SCH (07:29)
[2017-06-04] MEDS: Timolol Maleate 0.5% Ophth Soln 5 ML Bottle EYEBOTH SCH (07:29)
[2017-06-04] MEDS: Sodium Chloride 0.9% 10 ML Syringe FLUSH SCH (07:29)
[2017-06-04] MEDS ORDERED: Hydroxychloroquine 200 MG Tab PO SCH (08:00)
--- NOTE | 2017-06-04 18:07 | PCM.PN ---
- General Info Date of Service: 06/04/17 Functional Status: Reports: Pain Controlled - Review of Systems General: Reports: No Symptoms HEENT: Reports: No Symptoms Pulmonary: Reports: Shortness of Breath (still improved but maybe not as good as yesterday after she received the IV medicines) Cardiovascular: Reports: No Symptoms Gastrointestinal: Reports: No Symptoms Genitourinary: Reports: No Symptoms Musculoskeletal: Reports: No Symptoms Skin: Reports: No Symptoms Neurological: Reports: No Symptoms Psychiatric: Reports: No Symptoms - Patient Data Vitals - Most Recent: Last Vital Signs Temp 98 F 06/04/17 16:00 Pulse 88 06/04/17 16:00 Resp 16 06/04/17 16:00 BP 122/79 06/04/17 16:00 Pulse Ox 100 06/04/17 16:00 Weight - Most Recent: 113 lb 0.002 oz I&O - Last 24 Hours: Intake & Output 06/04/17 06/04/17 06/04/17 06:59 14:59 22:59 Intake Total 330 Output Total 200 Balance 130 Lab Results Last 24 Hours: Laboratory Results - last 24 hr 06/04/17 06/04/17 06/04/17 Range/Units 06:26 06:26 06:26 WBC 6.7 (4.0-10.2) K/uL RBC 3.54 L (3.77-5.09) M/uL Hgb 11.8 (11.7-15.5) g/dL Hct 35.8 (34.0-46.0) % MCV 101.1 H (84.0-98.0) fL MCH 33.3 (28.2-33.3) pg MCHC 33.0 (31.7-36.0) g/dL RDW 15.1 H (11.2-14.1) % Plt Count 179 (150-350) K/uL Neut % (Auto) 91.6 H (45.0-80.0) % Lymph % (Auto) 6.5 L (10.0-50.0) % [place] % (Auto) 1.7 L (2.0-14.0) % Eos % (Auto) 0.0 (0.0-5.0) % Baso % (Auto) 0.2 (0.0-2.0) % Neut # (Auto) 6.10 (1.40-7.00) K/uL Lymph # (Auto) 0.43 L (0.50-3.50) K/uL [place] # (Auto) 0.11 (0.00-1.00) K/uL Eos # (Auto) 0.00 (0.00-0.50) K/uL Baso # (Auto) 0.01 (0.00-0.20) K/uL VBG pH 7.45 H (7.31-7.41) VBG pCO2 34 L (41-51) mmHG VBG pO2 127 mmHG VBG HCO3 23 (23-28) mmol/L VBG Total CO2 24 mmol/L VBG O2 Saturation 99 % VBG Base Excess -1 ((-2)-3) mmol/L O2 Delivery Device Nasal cannula Sodium 138 (136-145) mmol/L Potassium 4.2 (3.5-5.1) mmol/L Chloride 102 (98-107) mmol/L Carbon Dioxide 23.8 (21.0-32.0) mmol/L BUN 43 H (7-18) mg/dL Creatinine 1.44 H (0.51-1.17) mg/dL Est Cr Clr Drug Dosing 25.21 mL/min Estimated GFR (MDRD) 35 mL/min Glucose 136 H (74-106) mg/dL Calcium 9.5 (8.5-10.1) mg/dL Total Bilirubin 0.7 (0.2-1.0) mg/dL AST 37 (15-37) U/L ALT 37 (12-78) U/L Alkaline Phosphatase 88 (46-116) IU/L Troponin I 1.818 H* (0.000-0.056) ng/mL Total Protein 6.0 L (6.4-8.2) g/dL Albumin 3.1 L (3.4-5.0) g/dL [place] Results Last 24 Hours: Microbiology 06/03/17 08:40 Helicobacter pylori Antigen - Final Stool / Feces Med Orders - Current: Current Medications Acetaminophen (Tylenol) 650 mg PO Q4H PRN PRN Reason: Pain Last Admin: 06/03/17 14:49 Dose: 650 mg Al Hydroxide/Mg Hydroxide (Maalox Advanced) 30 ml PO DAILY PRN PRN Reason: gi upset Enoxaparin Sodium (Lovenox) 30 mg SUBCUT Q24H [facility] Last Admin: 06/03/17 19:55 Dose: 30 mg Fluticasone Propionate (Flonase) 0 gm NASBOTH BID [facility] Last Admin: 06/04/17 17:26 Dose: 1 spray Folic Acid (Folic Acid) 1 mg PO DAILY [facility] Last Admin: 06/04/17 07:28 Dose: 1 mg Furosemide (Lasix) 40 mg PO DAILY [facility] Isosorbide Mononitrate (Imdur) 15 mg PO BEDTIME [facility] Latanoprost (Xalatan 0.005% Ophth Soln) 0 ml EYEBOTH BEDTIME [facility] Last Admin: 06/03/17 19:55 Dose: 1 drop Lorazepam (Ativan) 0.5 mg IVPUSH Q4H PRN PRN Reason: Dyspnea Metoprolol Tartrate (Lopressor) 12.5 mg PO Q12HR [facility] Morphine Sulfate (Morphine) 1 mg IVPUSH Q1H PRN PRN Reason: Dyspnea Morphine Sulfate (Morphine) 0.5 mg .XX Q2H PRN PRN Reason: Dyspnea Omeprazole (Omeprazole) 20 mg PO DAILY@1200 [facility] Prednisone (Prednisone) 20 mg PO BID [facility] Sodium Chloride (Sodium Chloride 0.9%) 3 ml NEB Q2H PRN PRN Reason: Shortness of Breath Sodium Chloride (Sodium Chloride 0.9%) 3 ml INH Q2H PRN PRN Reason: Dyspnea Temazepam (Restoril) 15 mg PO BEDTIME PRN PRN Reason: Insomnia Last Admin: 06/04/17 00:33 Dose: 15 mg Theophylline (Theophylline Anhydrous) 300 mg PO BID [facility] Timolol Maleate (Timoptic 0.5% Ophth Soln) 0 ml EYEBOTH DAILY [facility] Last Admin: 06/04/17 07:29 Dose: 1 drop Discontinued Medications Enoxaparin Sodium (Lovenox) 60 mg SUBCUT Q24H [facility] Last Admin: 06/02/17 18:56 Dose: 60 mg Famotidine (Pepcid) 40 mg IVPUSH ONETIME ONE Stop: 06/02/17 17:24 Last Admin: 06/02/17 18:02 Dose: 40 mg Famotidine (Pepcid) 20 mg IVPUSH Q24H [facility] Last Admin: 06/03/17 17:37 Dose: 20 mg Furosemide (Lasix) 60 mg IVPUSH NOW ONE Stop: 06/02/17 18:09 Last Admin: 06/02/17 18:13 Dose: 60 mg Furosemide (Lasix) 40 mg IVPUSH Q8H [facility] Last Admin: 06/03/17 08:10 Dose: 40 mg Hydroxychloroquine Sulfate (Plaquenil) 400 mg PO DAILY [facility] Last Admin: 06/03/17 08:15 Dose: 400 mg Hydroxychloroquine Sulfate (Plaquenil) 200 mg PO DAILY [facility] Last Admin: 06/04/17 07:28 Dose: 200 mg Nitroglycerin/Dextrose (Nitroglycerin 25 Mg/D5w 250 Ml) 25 mg in 250 mls @ 3 mls/hr IV TITRATE [facility] PRN Reason: 5 MCG/MIN Last Admin: 06/02/17 18:22 Dose: 5 mcg/min, 3 mls/hr Sodium Chloride (Normal Saline) 1,000 mls @ 30 mls/hr IV ASDIRECTED [facility] Last Admin: 06/02/17 18:22 Dose: 30 mls/hr Aminophylline 300 mg/ Sodium (Chloride) 112 mls @ 200 mls/hr IV ONETIME ONE Stop: 06/03/17 16:03 Last Admin: 06/03/17 16:20 Dose: 200 mls/hr Methotrexate (Methotrexate) 7.5 mg PO FR@0800 [facility] Methylprednisolone Sodium Succinate (Solu-Medrol) 80 mg IVPUSH ONETIME ONE Stop: 06/03/17 15:06 Last Admin: 06/03/17 15:17 Dose: 80 mg Methylprednisolone Sodium Succinate (Solu-Medrol) 40 mg IVPUSH Q12HR [facility] Last Admin: 06/04/17 07:29 Dose: 40 mg Metoprolol Succinate (Toprol Xl) 6.25 mg PO DAILY [facility] Last Admin: 06/04/17 07:28 Dose: 6.25 mg Potassium Chloride (Klor-Con M20) 20 meq PO TID [facility] Last Admin: 06/03/17 12:00 Dose: 20 meq Rosuvastatin Calcium (Crestor) 20 mg PO DAILY [facility] Last Admin: 06/04/17 07:28 Dose: 20 mg Sodium Chloride (Saline Flush) 10 ml FLUSH ASDIRECTED PRN PRN Reason: Keep Vein Open Last Admin: 06/03/17 17:37 Dose: 10 ml Sodium Chloride (Saline Flush) 10 ml FLUSH Q12HR PRN PRN Reason: Keep Vein Open Sodium Chloride (Saline Flush) 10 ml FLUSH Q12HR [facility] Last Admin: 06/04/17 07:29 Dose: 10 ml - Exam Quality Assessment: Supplemental Oxygen, DVT Prophylaxis General: Alert, Cooperative, Mild Distress HEENT: Mucous Membr. Moist/[place] Neck: Trachea Midline, No JVD Lungs: Normal Respiratory Effort, Decreased Breath Sounds, Crackles (no crackles after IV solumedrol and IV aminophine but few crackles today.) Cardiovascular: Irregular Rhythm GI/Abdominal Exam: Soft, Non-Tender, No Distention (Female) Exam: Deferred Back Exam: Normal Inspection, Other (kyphosis) Extremities: Non-Tender, Pedal Edema (minimal) Skin: Warm, Dry, Intact, Ecchymosis (from IV starts) Neurological: No New Focal Deficit Psy/Mental Status: Alert, Normal Affect, Normal Mood - Problem List & Annotations (1) CHF, Congestive heart failure SNOMED Code(s): 19611862 Code(s): I50.9 - HEART FAILURE, UNSPECIFIED Status: Acute Priority: High Current Visit: Yes Onset Date: ~06/02/17 Annotation/Comment:: High-dose IV Lasix therapy initiated in the emergency room. Comfort care as above with no echocardiogram, cardiology referral, transfer, etc. per their request (2) Elevated LFTs SNOMED Code(s): 628864696 Code(s): R79.89 - OTHER SPECIFIED ABNORMAL FINDINGS OF BLOOD CHEMISTRY Status: Acute Priority: Medium Current Visit: Yes Onset Date: 06/02/17 Annotation/Comment:: LFTs elevation likely secondary to CHF (3) [place], Myocardial infarction SNOMED Code(s): 89823292 Code(s): I21.9 - ACUTE MYOCARDIAL INFARCTION, UNSPECIFIED Status: Acute Priority: High Current Visit: Yes Onset Date: ~06/02/17 Annotation/Comment :: Known history of coronary artery disease. Elevated troponin I and CK index. Note comfort care, which was confirmed by the patient's son, Jovan during telephone consultation today. Chest pain protocol was initiated upon patient's arrival to the emergency room, although no true anginal complaints prior to admission. 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 She is apparently a nonoperable candidate with low-dose IV nitroglycerin infusion started in the emergency room. No ASA or Brilinta were given secondary to her current Eliquis Romolo which will now be held, with initiation of cardiac dose subcutaneous Lovenox initiated in the emergency room. Note previous history of atrial fibrillation, PVCs and complete bifascicular bundle-branch block. Cardiac enzymes, etc. will next be repeated in the a.m. secondary to comfort care status. Long-term prognosis poor (4) Hyperlipidemia SNOMED Code(s): 84086209 Code(s): E78.5 - HYPERLIPIDEMIA, UNSPECIFIED Status: Chronic Priority: Medium Current Visit: Yes Qualifiers: Hyperlipidemia type: mixed hyperlipidemia Qualified Code(s): E78.2 - Mixed hyperlipidemia Annotation/Comment:: Lipid panel and glycosylated hemoglobin in the a.m. (5) Hypertension SNOMED Code(s): 64862235 Code(s): I10 - ESSENTIAL (PRIMARY) HYPERTENSION Status: Chronic Priority : Medium Current Visit: Yes Qualifiers: Hypertension type: essential hypertension Qualified Code(s): I10 - Essential (primary) hypertension Annotation/Comment:: Blood pressure somewhat low in the emergency room. Nitroglycerin infusion with caution (6) Palliative care patient SNOMED Code(s): 804452183 Code(s): Z51.5 - ENCOUNTER FOR PALLIATIVE CARE Status: Chronic Priority: Medium Current Visit: Yes Annotation/Comment:: As above (7) Peptic reflux disease SNOMED Code(s): 78073705 Code(s): K21.9 - GASTRO-ESOPHAGEAL REFLUX DISEASE WITHOUT ESOPHAGITIS Status: Chronic Priority: Medium Current Visit: Yes Annotation/Comment:: No abdominal complaints. High-dose IV Pepcid given as GI prophylaxis (8) Renal insufficiency SNOMED Code(s): 435488703 Code(s): N28.9 - DISORDER OF KIDNEY AND URETER, UNSPECIFIED Status: Chronic Priority: Medium Current Visit: Yes Annotation/Comment:: Continue to observe her renal status closely secondary to IV Lasix therapy (9) Rheumatoid arthritis SNOMED Code(s): 65493545 Code(s): M06.9 - RHEUMATOID ARTHRITIS, UNSPECIFIED Status: Chronic Priority: Medium Current Visit: Yes Qualifiers: Rheumatoid arthritis location: multiple sites Rheumatoid factor presence: unspecified presence Qualified Code(s): M06.9 - Rheumatoid arthritis, unspecified Annotation/Comment:: Stable by history with current Plaquenil (10) Myocardial ischemia SNOMED Code(s): 339576698 Code(s): I25.9 - CHRONIC ISCHEMIC HEART DISEASE, UNSPECIFIED Status: Acute Priority: Medium Current Visit: No Onset Date: 06/26/14 (11) Troponin level elevated SNOMED Code(s): 082870757, 253162427 Code(s): R79.89 - OTHER SPECIFIED ABNORMAL FINDINGS OF BLOOD CHEMISTRY Status: Acute Current Visit: No (12) Pulmonary fibrosis SNOMED Code(s): 17895234 Code(s): J84.10 - PULMONARY FIBROSIS, UNSPECIFIED Status: Acute Priority : High Current Visit: Yes - Problem List Review Problem List Initiated/Reviewed/Updated: Yes - My Orders Last 24 Hours: My Active Orders 06/03/17 19:00 Enoxaparin [Lovenox] 30 mg SUBCUT Q24H 06/04/17 17:42 Discontinue Saline Lock [Peripheral IV Discontinue] [OM.PC] Routine 06/04/17 18:00 Theophylline [Theophylline Anhydrous] 300 mg PO BID predniSONE 20 mg PO BID 06/04/17 20:00 Isosorbide Mononitrate [Imdur] 15 mg PO BEDTIME Metoprolol Tartrate [Lopressor] 12.5 mg PO Q12HR 06/05/17 05:11 Chest 2V [CR] Routine BASIC METABOLIC PANEL,BMP [CHEM] DAILY CBC WITH AUTO DIFF [HEME] DAILY PRO B-TYPE NATRIUR PEPT,BNPPRO [CHEM] Routine THEOPHYLLINE [CHEM] Routine TROPONIN I [CHEM] Routine 06/05/17 08:00 Furosemide [Lasix] 40 mg PO DAILY 06/05/17 12:00 Omeprazole 20 mg PO DAILY@1200 06/05/17 Breakfast Regular Diet [DIET] 06/06/17 05:11 BASIC METABOLIC PANEL,BMP [CHEM] DAILY CBC WITH AUTO DIFF [HEME] DAILY - Plan Plan:: 06/03/17 Eva Dent MD Still short of breath. No chest pain. See orders. 06/04/17 vEa Dent MD Continues to feel less short of breath but maybe not as good as yesterday. No chest pain. She does not want to do PT. IV infiltrated and she does not want it restarted. Will switch to po prednisone, continue adjusting medications. Kidney status improving.
[2017-06-04] MEDS: predniSONE 20 MG Tab PO SCH (18:17)
[2017-06-04] MEDS: Theophylline 300 MG Tab.ER PO SCH (18:17)
[2017-06-04] MEDS: Isosorbide Mononitrate 30 MG Tab.ER PO SCH (19:48)
[2017-06-04] MEDS: Metoprolol Tartrate 25 MG Tab PO SCH (19:48)
[2017-06-04] MEDS: Enoxaparin 30 MG/0.3 ML Syringe SUBCUT SCH (19:49)
[2017-06-04] MEDS: Latanoprost 0.005% Ophth Soln 2.5 ML Bottle EYEBOTH SCH (19:52)
[2017-06-05] MEDS: Fluticasone Propionate Nasal Spray 16 GM Bottle NASBOTH SCH ×2 (08:10→17:39)
[2017-06-05] MEDS: Folic Acid 1 MG Tab PO SCH (08:10)
[2017-06-05] MEDS: Furosemide 40 MG Tab PO SCH (08:11)
[2017-06-05] MEDS: Metoprolol Tartrate 25 MG Tab PO SCH ×2 (08:11→20:12)
[2017-06-05] MEDS: predniSONE 20 MG Tab PO SCH ×2 (08:13→17:40)
[2017-06-05] MEDS: Theophylline 300 MG Tab.ER PO SCH (08:13)
[2017-06-05] MEDS: Timolol Maleate 0.5% Ophth Soln 5 ML Bottle EYEBOTH SCH (08:14)
[2017-06-05] MEDS: Omeprazole 20 MG Cap.CR PO SCH (12:07)
--- NOTE | 2017-06-05 14:52 | PCM.PN ---
- General Info Date of Service: 06/05/17 Functional Status: Reports: Pain Controlled, Tolerating Diet, Ambulating - Review of Systems General: Reports: Weakness HEENT: Reports: No Symptoms Pulmonary: Reports: Shortness of Breath (improving) Cardiovascular: Reports: No Symptoms Gastrointestinal: Reports: No Symptoms Genitourinary: Reports: No Symptoms Musculoskeletal: Reports: Joint Pain (rhematoid arthritis) Skin: Reports: No Symptoms, Bruising (from IV starts and IV draws) Neurological: Reports: No Symptoms Psychiatric: Reports: No Symptoms - Patient Data Vitals - Most Recent: Last Vital Signs Temp 98.2 F 06/05/17 12:00 Pulse 96 06/05/17 12:00 Resp 18 06/05/17 12:00 BP 114/78 06/05/17 12:00 Pulse Ox 100 06/05/17 12:00 Weight - Most Recent: 113 lb I&O - Last 24 Hours: Intake & Output 06/04/17 06/05/17 06/05/17 22:59 06:59 14:59 Intake Total 250 100 900 Output Total 250 400 Balance 250 -150 500 Lab Results Last 24 Hours: Laboratory Results - last 24 hr 06/05/17 06/05/17 Range/Units 06:55 06:55 WBC 14.5 H (4.0-10.2) K/uL RBC 3.37 L (3.77-5.09) M/uL Hgb 11.3 L (11.7-15.5) g/dL Hct 34.0 (34.0-46.0) % MCV 100.9 H (84.0-98.0) fL MCH 33.5 H (28.2-33.3) pg MCHC 33.2 (31.7-36.0) g/dL RDW 15.1 H (11.2-14.1) % Plt Count 173 (150-350) K/uL Neut % (Auto) 91.7 H (45.0-80.0) % Lymph % (Auto) 4.0 L (10.0-50.0) % [place] % (Auto) 4.1 (2.0-14.0) % Eos % (Auto) 0.0 (0.0-5.0) % Baso % (Auto) 0.2 (0.0-2.0) % Neut # (Auto) 13.25 H (1.40-7.00) K/uL Lymph # (Auto) 0.58 (0.50-3.50) K/uL [place] # (Auto) 0.60 (0.00-1.00) K/uL Eos # (Auto) 0.00 (0.00-0.50) K/uL Baso # (Auto) 0.03 (0.00-0.20) K/uL Sodium 134 L (136-145) mmol/L Potassium 4.5 (3.5-5.1) mmol/L Chloride 100 (98-107) mmol/L Carbon Dioxide 21.9 (21.0-32.0) mmol/L BUN 55 H (7-18) mg/dL Creatinine 1.64 H (0.51-1.17) mg/dL Est Cr Clr Drug Dosing 22.14 mL/min Estimated GFR (MDRD) 30 mL/min Glucose 111 H (74-106) mg/dL Calcium 9.2 (8.5-10.1) mg/dL Troponin I 1.615 H* (0.000-0.056) ng/mL NT-Pro-B Natriuret Pep 11686 H (0-125) pg/mL Theophylline 12 (10-20) ug/dL [place] Results Last 24 Hours: Microbiology 06/03/17 08:40 Helicobacter pylori Antigen - Final Stool / Feces Med Orders - Current: Current Medications Acetaminophen (Tylenol) 650 mg PO Q4H PRN PRN Reason: Pain Last Admin: 06/03/17 14:49 Dose: 650 mg Al Hydroxide/Mg Hydroxide (Maalox Advanced) 30 ml PO DAILY PRN PRN Reason: gi upset Enoxaparin Sodium (Lovenox) 30 mg SUBCUT Q24H [facility] Enoxaparin Sodium (Lovenox) 30 mg SUBCUT ONETIME ONE Stop: 06/05/17 18:01 Fluticasone Propionate (Flonase) 0 gm NASBOTH BID [facility] Last Admin: 06/05/17 08:10 Dose: 1 spray Folic Acid (Folic Acid) 1 mg PO DAILY [facility] Last Admin: 06/05/17 08:10 Dose: 1 mg Furosemide (Lasix) 40 mg PO DAILY [facility] Last Admin: 06/05/17 08:11 Dose: 40 mg Isosorbide Mononitrate (Imdur) 15 mg PO BEDTIME [facility] Last Admin: 06/04/17 19:48 Dose: 15 mg Latanoprost (Xalatan 0.005% Ophth Soln) 0 ml EYEBOTH BEDTIME [facility] Last Admin: 06/04/17 19:52 Dose: 1 drop Lorazepam (Ativan) 0.5 mg IVPUSH Q4H PRN PRN Reason: Dyspnea Metoprolol Tartrate (Lopressor) 12.5 mg PO Q12HR [facility] Last Admin: 06/05/17 08:11 Dose: 12.5 mg Morphine Sulfate (Morphine) 1 mg IVPUSH Q1H PRN PRN Reason: Dyspnea Morphine Sulfate (Morphine) 0.5 mg .XX Q2H PRN PRN Reason: Dyspnea Omeprazole (Omeprazole) 20 mg PO DAILY@1200 [facility] Last Admin: 06/05/17 12:07 Dose: 20 mg Prednisone (Prednisone) 20 mg PO BID [facility] Last Admin: 06/05/17 08:13 Dose: 20 mg Sodium Chloride (Sodium Chloride 0.9%) 3 ml NEB Q2H PRN PRN Reason: Shortness of Breath Sodium Chloride (Sodium Chloride 0.9%) 3 ml INH Q2H PRN PRN Reason: Dyspnea Temazepam (Restoril) 15 mg PO BEDTIME PRN PRN Reason: Insomnia Last Admin: 06/04/17 19:48 Dose: 15 mg Theophylline (Theophylline Anhydrous) 300 mg PO BEDTIME [facility] Timolol Maleate (Timoptic 0.5% Oph Soln) 0 ml EYEBOTH DAILY [facility] Last Admin: 06/05/17 08:14 Dose: 1 drop Discontinued Medications Enoxaparin Sodium (Lovenox) 60 mg SUBCUT Q24H [facility] Last Admin: 06/02/17 18:56 Dose: 60 mg Enoxaparin Sodium (Lovenox) 30 mg SUBCUT Q24H [facility] Last Admin: 06/04/17 19:49 Dose: 30 mg Famotidine (Pepcid) 40 mg IVPUSH ONETIME ONE Stop: 06/02/17 17:24 Last Admin: 06/02/17 18:02 Dose: 40 mg Famotidine (Pepcid) 20 mg IVPUSH Q24H [facility] Last Admin: 06/03/17 17:37 Dose: 20 mg Furosemide (Lasix) 60 mg IVPUSH NOW ONE Stop: 06/02/17 18:09 Last Admin: 06/02/17 18:13 Dose: 60 mg Furosemide (Lasix) 40 mg IVPUSH Q8H [facility] Last Admin: 06/03/17 08:10 Dose: 40 mg Hydroxychloroquine Sulfate (Plaquenil) 400 mg PO DAILY [facility] Last Admin: 06/03/17 08:15 Dose: 400 mg Hydroxychloroquine Sulfate (Plaquenil) 200 mg PO DAILY [facility] Last Admin: 06/04/17 07:28 Dose: 200 mg Nitroglycerin/Dextrose (Nitroglycerin 25 Mg/D5w 250 Ml) 25 mg in 250 mls @ 3 mls/hr IV TITRATE [facility] PRN Reason: 5 MCG/MIN Last Admin: 06/02/17 18:22 Dose: 5 mcg/min, 3 mls/hr Sodium Chloride (Normal Saline) 1,000 mls @ 30 mls/hr IV ASDIRECTED [facility] Last Admin: 06/02/17 18:22 Dose: 30 mls/hr Aminophylline 300 mg/ Sodium (Chloride) 112 mls @ 200 mls/hr IV ONETIME ONE Stop: 06/03/17 16:03 Last Admin: 06/03/17 16:20 Dose: 200 mls/hr Methotrexate (Methotrexate) 7.5 mg PO FR@0800 [facility] Methylprednisolone Sodium Succinate (Solu-Medrol) 80 mg IVPUSH ONETIME ONE Stop: 06/03/17 15:06 Last Admin: 06/03/17 15:17 Dose: 80 mg Methylprednisolone Sodium Succinate (Solu-Medrol) 40 mg IVPUSH Q12HR [facility] Last Admin: 06/04/17 07:29 Dose: 40 mg Metoprolol Succinate (Toprol Xl) 6.25 mg PO DAILY [facility] Last Admin: 06/04/17 07:28 Dose: 6.25 mg Potassium Chloride (Klor-Con M20) 20 meq PO TID [facility] Last Admin: 06/03/17 12:00 Dose: 20 meq Rosuvastatin Calcium (Crestor) 20 mg PO DAILY [facility] Last Admin: 06/04/17 07:28 Dose: 20 mg Sodium Chloride (Saline Flush) 10 ml FLUSH ASDIRECTED PRN PRN Reason: Keep Vein Open Last Admin: 06/03/17 17:37 Dose: 10 ml Sodium Chloride (Saline Flush) 10 ml FLUSH Q12HR PRN PRN Reason: Keep Vein Open Sodium Chloride (Saline Flush) 10 ml FLUSH Q12HR [facility] Last Admin: 06/04/17 07:29 Dose: 10 ml Theophylline (Theophylline Anhydrous) 300 mg PO BID [facility] Last Admin: 06/05/17 08:13 Dose: 300 mg - Exam Quality Assessment: Supplemental Oxygen, DVT Prophylaxis General: Alert, Cooperative, No Acute Distress HEENT: Mucous Membr. Moist/[place] Neck: Trachea Midline, No JVD Lungs: Normal Respiratory Effort, Decreased Breath Sounds, Crackles (bibasilar but decreasing) Cardiovascular: Irregular Rhythm, Murmurs GI/Abdominal Exam: Soft, Non-Tender, No Distention (Female) Exam: Deferred Back Exam: Decreased Range of Motion, Other (kyphosis) Extremities: Normal Inspection, Non-Tender, Pedal Edema (minimal) Skin: Warm, Dry, Intact, Ecchymosis Neurological: No New Focal Deficit Psy/Mental Status: Alert, Normal Affect, Normal Mood - Problem List & Annotations (1) CHF, Congestive heart failure SNOMED Code(s): 34199867 Code(s): I50.9 - HEART FAILURE, UNSPECIFIED Status: Acute Priority: High Current Visit: Yes Onset Date: ~06/02/17 Annotation/Comment:: High-dose IV Lasix therapy initiated in the emergency room. Comfort care as above with no echocardiogram, cardiology referral, transfer, etc. per their request (2) Elevated LFTs SNOMED Code(s): 106788442 Code(s): R79.89 - OTHER SPECIFIED ABNORMAL FINDINGS OF BLOOD CHEMISTRY Status: Acute Priority: Medium Current Visit: Yes Onset Date: 06/02/17 Annotation/Comment:: LFTs elevation likely secondary to CHF (3) PA, Myocardial infarction SNOMED Code(s): 16340050 Code(s): I21.9 - ACUTE MYOCARDIAL INFARCTION, UNSPECIFIED Status: Acute Priority: High Current Visit: Yes Onset Date: ~06/02/17 Annotation/Comment :: Known history of coronary artery disease. Elevated troponin I and CK index. Note comfort care, which was confirmed by the patient's son, Jovan during telephone consultation today. Chest pain protocol was initiated upon patient's arrival to the emergency room, although no true anginal complaints prior to admission. 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 She is apparently a nonoperable candidate with low-dose IV nitroglycerin infusion started in the emergency room. No ASA or Brilinta were given secondary to her current Eliquis Romolo which will now be held, with initiation of cardiac dose subcutaneous Lovenox initiated in the emergency room. Note previous history of atrial fibrillation, PVCs and complete bifascicular bundle-branch block. Cardiac enzymes, etc. will next be repeated in the a.m. secondary to comfort care status. Long-term prognosis poor (4) Hyperlipidemia SNOMED Code(s): 64224064 Code(s): E78.5 - HYPERLIPIDEMIA, UNSPECIFIED Status: Chronic Priority: Medium Current Visit: Yes Qualifiers: Hyperlipidemia type: mixed hyperlipidemia Qualified Code(s): E78.2 - Mixed hyperlipidemia Annotation/Comment:: Lipid panel and glycosylated hemoglobin in the a.m. (5) Hypertension SNOMED Code(s): 46010607 Code(s): I10 - ESSENTIAL (PRIMARY) HYPERTENSION Status: Chronic Priority : Medium Current Visit: Yes Qualifiers: Hypertension type: essential hypertension Qualified Code(s): I10 - Essential (primary) hypertension Annotation/Comment:: Blood pressure somewhat low in the emergency room. Nitroglycerin infusion with caution (6) Palliative care patient SNOMED Code(s): 007936672 Code(s): Z51.5 - ENCOUNTER FOR PALLIATIVE CARE Status: Chronic Priority: Medium Current Visit: Yes Annotation/Comment:: As above (7) Peptic reflux disease SNOMED Code(s): 72068403 Code(s): K21.9 - GASTRO-ESOPHAGEAL REFLUX DISEASE WITHOUT ESOPHAGITIS Status: Chronic Priority: Medium Current Visit: Yes Annotation/Comment:: No abdominal complaints. High-dose IV Pepcid given as GI prophylaxis (8) Renal insufficiency SNOMED Code(s): 333181502 Code(s): N28.9 - DISORDER OF KIDNEY AND URETER, UNSPECIFIED Status: Chronic Priority: Medium Current Visit: Yes Annotation/Comment:: Continue to observe her renal status closely secondary to IV Lasix therapy (9) Rheumatoid arthritis SNOMED Code(s): 49250216 Code(s): M06.9 - RHEUMATOID ARTHRITIS, UNSPECIFIED Status: Chronic Priority: Medium Current Visit: Yes Qualifiers: Rheumatoid arthritis location: multiple sites Rheumatoid factor presence: unspecified presence Qualified Code(s): M06.9 - Rheumatoid arthritis, unspecified Annotation/Comment:: Stable by history with current Plaquenil (10) Myocardial ischemia SNOMED Code(s): 686733491 Code(s): I25.9 - CHRONIC ISCHEMIC HEART DISEASE, UNSPECIFIED Status: Acute Priority: Medium Current Visit: No Onset Date: 06/26/14 (11) Troponin level elevated SNOMED Code(s): 878576580, 004544763 Code(s): R79.89 - OTHER SPECIFIED ABNORMAL FINDINGS OF BLOOD CHEMISTRY Status: Acute Current Visit: No (12) Pulmonary fibrosis SNOMED Code(s): 91966442 Code(s): J84.10 - PULMONARY FIBROSIS, UNSPECIFIED Status: Acute Priority : High Current Visit: Yes - Problem List Review Problem List Initiated/Reviewed/Updated: Yes - My Orders Last 24 Hours: My Active Orders 06/04/17 17:42 Discontinue Saline Lock [Peripheral IV Discontinue] [OM.PC] Routine 06/04/17 18:00 predniSONE 20 mg PO BID 06/04/17 20:00 Isosorbide Mononitrate [Imdur] 15 mg PO BEDTIME Metoprolol Tartrate [Lopressor] 12.5 mg PO Q12HR 06/05/17 05:11 Chest 2V [CR] Routine 06/05/17 08:00 Furosemide [Lasix] 40 mg PO DAILY 06/05/17 12:00 Omeprazole 20 mg PO DAILY@1200 06/05/17 18:00 Enoxaparin [Lovenox] 30 mg SUBCUT ONETIME ONE 06/05/17 Breakfast Regular Diet [DIET] 06/06/17 05:11 BASIC METABOLIC PANEL,BMP [CHEM] DAILY CBC WITH AUTO DIFF [HEME] DAILY FOLATE [REF] Routine PRO B-TYPE NATRIUR PEPT,BNPPRO [CHEM] Routine THEOPHYLLINE [CHEM] Routine VITAMIN B12 [CHEM] Routine 06/06/17 08:00 Enoxaparin [Lovenox] 30 mg SUBCUT Q24H 06/06/17 20:00 Theophylline [Theophylline Anhydrous] 300 mg PO BEDTIME - Plan Plan:: 06/03/17 Eva Dent MD Still short of breath. No chest pain. See orders. 06/04/17 Eva Dent MD Continues to feel less short of breath but maybe not as good as yesterday. No chest pain. She does not want to do PT. IV infiltrated and she does not want it restarted. Will switch to po prednisone, continue adjusting medications. Kidney status improving. 06/05/17 Eva Dent MD Continues to feel better. She is less short of breath. Continue medical regiment. Son here for visit. Many questions answered. Discharge plans discussed.
[2017-06-05] MEDS ORDERED: Enoxaparin 30 MG/0.3 ML Syringe SUBCUT ONE (18:00)
[2017-06-05] MEDS: Isosorbide Mononitrate 30 MG Tab.ER PO SCH (20:11)
[2017-06-05] MEDS: Temazepam 15 MG Cap PO PRN (20:11)
[2017-06-05] MEDS: Latanoprost 0.005% Ophth Soln 2.5 ML Bottle EYEBOTH SCH (20:16)
[2017-06-06] MEDS: Fluticasone Propionate Nasal Spray 16 GM Bottle NASBOTH SCH (07:19)
[2017-06-06] MEDS: Folic Acid 1 MG Tab PO SCH (07:20)
[2017-06-06] MEDS: Metoprolol Tartrate 25 MG Tab PO SCH (07:20)
[2017-06-06] MEDS: Furosemide 40 MG Tab PO SCH (07:20)
[2017-06-06] MEDS: predniSONE 20 MG Tab PO SCH (07:25)
[2017-06-06] MEDS: Timolol Maleate 0.5% Ophth Soln 5 ML Bottle EYEBOTH SCH (07:25)
[2017-06-06] MEDS ORDERED: Enoxaparin 30 MG/0.3 ML Syringe SUBCUT SCH (08:00)
[2017-06-06] MEDS ORDERED: Methotrexate 2.5 MG Tab PO SCH (08:00)
[2017-06-06 08:40] LABS: CHLORIDE,CL 102 mmol/L (98-107); SODIUM,NA 137 mmol/L (136-145)
[2017-06-06] MEDS: Omeprazole 20 MG Cap.CR PO SCH (11:49)
[2017-06-06] MEDS ORDERED: Metoprolol Tartrate 25 MG Tab PO ONE (12:45)
[2017-06-06 12:55] VITALS: BP 104/69
--- NOTE | 2017-06-06 15:39 | PCM.PN ---
- General Info Date of Service: 06/06/17 Functional Status: Reports: Pain Controlled - Review of Systems General: Reports: No Symptoms HEENT: Reports: No Symptoms Pulmonary: Reports: No Symptoms Cardiovascular: Reports: No Symptoms Gastrointestinal: Reports: No Symptoms Genitourinary: Reports: No Symptoms Musculoskeletal: Reports: No Symptoms Skin: Reports: No Symptoms Neurological: Reports: No Symptoms Psychiatric: Reports: No Symptoms - Patient Data Vitals - Most Recent: Last Vital Signs Temp 97.4 F 06/06/17 12:00 Pulse 103 H 06/06/17 14:59 Resp 15 06/06/17 12:00 BP 104/69 06/06/17 14:59 Pulse Ox 99 06/06/17 12:00 Weight - Most Recent: 116 lb 14.4 oz I&O - Last 24 Hours: Intake & Output 06/06/17 06/06/17 06/06/17 06:59 14:59 22:59 Intake Total 2460 Output Total 250 950 Balance -250 1510 Lab Results Last 24 Hours: Laboratory Results - last 24 hr 06/06/17 06/06/17 Range/Units 07:13 07:13 WBC 13.0 H (4.0-10.2) K/uL RBC 3.39 L (3.77-5.09) M/uL Hgb 11.3 L (11.7-15.5) g/dL Hct 33.8 L (34.0-46.0) % MCV 99.7 H (84.0-98.0) fL MCH 33.3 (28.2-33.3) pg MCHC 33.4 (31.7-36.0) g/dL RDW 15.1 H (11.2-14.1) % Plt Count 186 (150-350) K/uL Neut % (Auto) 89.4 H (45.0-80.0) % Lymph % (Auto) 4.7 L (10.0-50.0) % Gray % (Auto) 5.7 (2.0-14.0) % Eos % (Auto) 0.0 (0.0-5.0) % Baso % (Auto) 0.2 (0.0-2.0) % Neut # (Auto) 11.60 H (1.40-7.00) K/uL Lymph # (Auto) 0.61 (0.50-3.50) K/uL Gray # (Auto) 0.74 (0.00-1.00) K/uL Eos # (Auto) 0.00 (0.00-0.50) K/uL Baso # (Auto) 0.02 (0.00-0.20) K/uL Sodium 137 (136-145) mmol/L Potassium 4.2 (3.5-5.1) mmol/L Chloride 102 (98-107) mmol/L Carbon Dioxide 21.7 (21.0-32.0) mmol/L BUN 57 H (7-18) mg/dL Creatinine 1.40 H (0.51-1.17) mg/dL Est Cr Clr Drug Dosing 25.93 mL/min Estimated GFR (MDRD) 36 mL/min Glucose 99 (74-106) mg/dL Calcium 9.1 (8.5-10.1) mg/dL NT-Pro-B Natriuret Pep 77267 H (0-125) pg/mL Vitamin B12 374 (193-986) pg/mL Folate > 20.0 (8.6-58.9) ng/mL Theophylline 13 (10-20) ug/dL Med Orders - Current: Current Medications Acetaminophen (Tylenol) 650 mg PO Q4H PRN PRN Reason: Pain Last Admin: 06/03/17 14:49 Dose: 650 mg Al Hydroxide/Mg Hydroxide (Maalox Advanced) 30 ml PO DAILY PRN PRN Reason: gi upset Enoxaparin Sodium (Lovenox) 30 mg SUBCUT Q24H COUNT INCLUDES THE [facility] Last Admin: 06/06/17 07:24 Dose: 30 mg Fluticasone Propionate (Flonase) 0 gm NASBOTH BID COUNT INCLUDES THE [facility] Last Admin: 06/06/17 07:19 Dose: 1 spray Folic Acid (Folic Acid) 1 mg PO DAILY COUNT INCLUDES THE [facility] Last Admin: 06/06/17 07:20 Dose: 1 mg Furosemide (Lasix) 40 mg PO DAILY COUNT INCLUDES THE [facility] Last Admin: 06/06/17 07:20 Dose: 40 mg Isosorbide Mononitrate (Imdur) 15 mg PO BEDTIME COUNT INCLUDES THE [facility] Last Admin: 06/05/17 20:11 Dose: 15 mg Latanoprost (Xalatan 0.005% Ophth Soln) 0 ml EYEBOTH BEDTIME COUNT INCLUDES THE [facility] Last Admin: 06/05/17 20:16 Dose: 1 drop Lorazepam (Ativan) 0.5 mg IVPUSH Q4H PRN PRN Reason: Dyspnea Metoprolol Tartrate (Lopressor) 25 mg PO Q12HR COUNT INCLUDES THE [facility] Morphine Sulfate (Morphine) 1 mg IVPUSH Q1H PRN PRN Reason: Dyspnea Morphine Sulfate (Morphine) 0.5 mg .XX Q2H PRN PRN Reason: Dyspnea Omeprazole (Omeprazole) 20 mg PO DAILY@1200 COUNT INCLUDES THE [facility] Last Admin: 06/06/17 11:49 Dose: 20 mg Prednisone (Prednisone) 20 mg PO BID COUNT INCLUDES THE [facility] Last Admin: 06/06/17 07:25 Dose: 20 mg Sodium Chloride (Sodium Chloride 0.9%) 3 ml NEB Q2H PRN PRN Reason: Shortness of Breath Sodium Chloride (Sodium Chloride 0.9%) 3 ml INH Q2H PRN PRN Reason: Dyspnea Temazepam (Restoril) 15 mg PO BEDTIME PRN PRN Reason: Insomnia Last Admin: 06/05/17 20:11 Dose: 15 mg Theophylline (Theophylline Anhydrous) 300 mg PO BEDTIME COUNT INCLUDES THE [facility] Timolol Maleate (Timoptic 0.5% [facility]) 0 ml EYEBOTH DAILY COUNT INCLUDES THE [facility] Last Admin: 06/06/17 07:25 Dose: 1 drop Discontinued Medications Enoxaparin Sodium (Lovenox) 60 mg SUBCUT Q24H COUNT INCLUDES THE [facility] Last Admin: 06/02/17 18:56 Dose: 60 mg Enoxaparin Sodium (Lovenox) 30 mg SUBCUT Q24H COUNT INCLUDES THE [facility] Last Admin: 06/04/17 19:49 Dose: 30 mg Enoxaparin Sodium (Lovenox) 30 mg SUBCUT ONETIME ONE Stop: 06/05/17 18:01 Last Admin: 06/05/17 17:40 Dose: 30 mg Famotidine (Pepcid) 40 mg IVPUSH ONETIME ONE Stop: 06/02/17 17:24 Last Admin: 06/02/17 18:02 Dose: 40 mg Famotidine (Pepcid) 20 mg IVPUSH Q24H COUNT INCLUDES THE [facility] Last Admin: 06/03/17 17:37 Dose: 20 mg Furosemide (Lasix) 60 mg IVPUSH NOW ONE Stop: 06/02/17 18:09 Last Admin: 06/02/17 18:13 Dose: 60 mg Furosemide (Lasix) 40 mg IVPUSH Q8H COUNT INCLUDES THE [facility] Last Admin: 06/03/17 08:10 Dose: 40 mg Hydroxychloroquine Sulfate (Plaquenil) 400 mg PO DAILY COUNT INCLUDES THE [facility] Last Admin: 06/03/17 08:15 Dose: 400 mg Hydroxychloroquine Sulfate (Plaquenil) 200 mg PO DAILY COUNT INCLUDES THE [facility] Last Admin: 06/04/17 07:28 Dose: 200 mg Nitroglycerin/Dextrose (Nitroglycerin 25 Mg/D5w 250 Ml) 25 mg in 250 mls @ 3 mls/hr IV TITRATE COUNT INCLUDES THE [facility] PRN Reason: 5 MCG/MIN Last Admin: 06/02/17 18:22 Dose: 5 mcg/min, 3 mls/hr Sodium Chloride (Normal Saline) 1,000 mls @ 30 mls/hr IV ASDIRECTED COUNT INCLUDES THE [facility] Last Admin: 06/02/17 18:22 Dose: 30 mls/hr Aminophylline 300 mg/ Sodium (Chloride) 112 mls @ 200 mls/hr IV ONETIME ONE Stop: 06/03/17 16:03 Last Admin: 06/03/17 16:20 Dose: 200 mls/hr Methotrexate (Methotrexate) 7.5 mg PO FR@0800 COUNT INCLUDES THE [facility] Methylprednisolone Sodium Succinate (Solu-Medrol) 80 mg IVPUSH ONETIME ONE Stop: 06/03/17 15:06 Last Admin: 06/03/17 15:17 Dose: 80 mg Methylprednisolone Sodium Succinate (Solu-Medrol) 40 mg IVPUSH Q12HR COUNT INCLUDES THE [facility] Last Admin: 06/04/17 07:29 Dose: 40 mg Metoprolol Succinate (Toprol Xl) 6.25 mg PO DAILY COUNT INCLUDES THE [facility] Last Admin: 06/04/17 07:28 Dose: 6.25 mg Metoprolol Tartrate (Lopressor) 12.5 mg PO Q12HR COUNT INCLUDES THE [facility] Last Admin: 06/06/17 07:20 Dose: 12.5 mg Metoprolol Tartrate (Lopressor) 12.5 mg PO ONETIME ONE Stop: 06/06/17 12:46 Last Admin: 06/06/17 14:59 Dose: 12.5 mg Potassium Chloride (Klor-Con M20) 20 meq PO TID COUNT INCLUDES THE [facility] Last Admin: 06/03/17 12:00 Dose: 20 meq Rosuvastatin Calcium (Crestor) 20 mg PO DAILY COUNT INCLUDES THE [facility] Last Admin: 06/04/17 07:28 Dose: 20 mg Sodium Chloride (Saline Flush) 10 ml FLUSH ASDIRECTED PRN PRN Reason: Keep Vein Open Last Admin: 06/03/17 17:37 Dose: 10 ml Sodium Chloride (Saline Flush) 10 ml FLUSH Q12HR PRN PRN Reason: Keep Vein Open Sodium Chloride (Saline Flush) 10 ml FLUSH Q12HR COUNT INCLUDES THE [facility] Last Admin: 06/04/17 07:29 Dose: 10 ml Theophylline (Theophylline Anhydrous) 300 mg PO BID COUNT INCLUDES THE [facility] Last Admin: 06/05/17 08:13 Dose: 300 mg - Exam Quality Assessment: Supplemental Oxygen (weaned off) General: Alert, Oriented, Cooperative, No Acute Distress HEENT: Mucous Membr. Moist/[place] Neck: Trachea Midline, No JVD Lungs: Clear to Auscultation Cardiovascular: Irregular Rhythm GI/Abdominal Exam: Soft, Non-Tender, No Distention (Female) Exam: Deferred Back Exam: Normal Inspection Extremities: Non-Tender, Pedal Edema (scant) Skin: Warm, Dry, Intact Neurological: No New Focal Deficit Psy/Mental Status: Alert, Normal Affect, Normal Mood - Problem List & Annotations (1) CHF, Congestive heart failure SNOMED Code(s): 22936385 Code(s): I50.9 - HEART FAILURE, UNSPECIFIED Status: Acute Priority: High Current Visit: Yes Onset Date: ~06/02/17 Annotation/Comment:: High-dose IV Lasix therapy initiated in the emergency room. Comfort care as above with no echocardiogram, cardiology referral, transfer, etc. per their request (2) Elevated LFTs SNOMED Code(s): 402009340 Code(s): R79.89 - OTHER SPECIFIED ABNORMAL FINDINGS OF BLOOD CHEMISTRY Status: Acute Priority: Medium Current Visit: Yes Onset Date: 06/02/17 Annotation/Comment:: LFTs elevation likely secondary to CHF (3) KS, Myocardial infarction SNOMED Code(s): 93034714 Code(s): I21.9 - ACUTE MYOCARDIAL INFARCTION, UNSPECIFIED Status: Acute Priority: High Current Visit: Yes Onset Date: ~06/02/17 Annotation/Comment :: Known history of coronary artery disease. Elevated troponin I and CK index. Note comfort care, which was confirmed by the patient's son, Jovan during telephone consultation today. Chest pain protocol was initiated upon patient's arrival to the emergency room, although no true anginal complaints prior to admission. 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 She is apparently a nonoperable candidate with low-dose IV nitroglycerin infusion started in the emergency room. No ASA or Brilinta were given secondary to her current Eliquis Romolo which will now be held, with initiation of cardiac dose subcutaneous Lovenox initiated in the emergency room. Note previous history of atrial fibrillation, PVCs and complete bifascicular bundle-branch block. Cardiac enzymes, etc. will next be repeated in the a.m. secondary to comfort care status. Long-term prognosis poor (4) Hyperlipidemia SNOMED Code(s): 44208578 Code(s): E78.5 - HYPERLIPIDEMIA, UNSPECIFIED Status: Chronic Priority: Medium Current Visit: Yes Qualifiers: Hyperlipidemia type: mixed hyperlipidemia Qualified Code(s): E78.2 - Mixed hyperlipidemia Annotation/Comment:: Lipid panel and glycosylated hemoglobin in the a.m. (5) Hypertension SNOMED Code(s): 94427980 Code(s): I10 - ESSENTIAL (PRIMARY) HYPERTENSION Status: Chronic Priority : Medium Current Visit: Yes Qualifiers: Hypertension type: essential hypertension Qualified Code(s): I10 - Essential (primary) hypertension Annotation/Comment:: Blood pressure somewhat low in the emergency room. Nitroglycerin infusion with caution (6) Palliative care patient SNOMED Code(s): 092775808 Code(s): Z51.5 - ENCOUNTER FOR PALLIATIVE CARE Status: Chronic Priority: Medium Current Visit: Yes Annotation/Comment:: As above (7) Peptic reflux disease SNOMED Code(s): 19913822 Code(s): K21.9 - GASTRO-ESOPHAGEAL REFLUX DISEASE WITHOUT ESOPHAGITIS Status: Chronic Priority: Medium Current Visit: Yes Annotation/Comment:: No abdominal complaints. High-dose IV Pepcid given as GI prophylaxis (8) Renal insufficiency SNOMED Code(s): 929922792 Code(s): N28.9 - DISORDER OF KIDNEY AND URETER, UNSPECIFIED Status: Chronic Priority: Medium Current Visit: Yes Annotation/Comment:: Continue to observe her renal status closely secondary to IV Lasix therapy (9) Rheumatoid arthritis SNOMED Code(s): 55246331 Code(s): M06.9 - RHEUMATOID ARTHRITIS, UNSPECIFIED Status: Chronic Priority: Medium Current Visit: Yes Qualifiers: Rheumatoid arthritis location: multiple sites Rheumatoid factor presence: unspecified presence Qualified Code(s): M06.9 - Rheumatoid arthritis, unspecified Annotation/Comment:: Stable by history with current Plaquenil (10) Myocardial ischemia SNOMED Code(s): 386803982 Code(s): I25.9 - CHRONIC ISCHEMIC HEART DISEASE, UNSPECIFIED Status: Acute Priority: Medium Current Visit: No Onset Date: 06/26/14 (11) Troponin level elevated SNOMED Code(s): 395821747, 902393436 Code(s): R79.89 - OTHER SPECIFIED ABNORMAL FINDINGS OF BLOOD CHEMISTRY Status: Acute Current Visit: No (12) Pulmonary fibrosis SNOMED Code(s): 14628412 Code(s): J84.10 - PULMONARY FIBROSIS, UNSPECIFIED Status: Acute Priority : High Current Visit: Yes (13) COPD (chronic obstructive pulmonary disease) SNOMED Code(s): 62600782 Code(s): J44.9 - CHRONIC OBSTRUCTIVE PULMONARY DISEASE, UNSPECIFIED Status : Acute Priority: High Current Visit: Yes - Problem List Review Problem List Initiated/Reviewed/Updated: Yes - My Orders Last 24 Hours: My Active Orders 06/06/17 08:00 Enoxaparin [Lovenox] 30 mg SUBCUT Q24H 06/06/17 15:30 Ready for Discharge [RC] PER UNIT ROUTINE 06/06/17 20:00 Metoprolol Tartrate [Lopressor] 25 mg PO Q12HR Theophylline [Theophylline Anhydrous] 300 mg PO BEDTIME - Plan Plan:: 06/03/17 Eva Dent MD Still short of breath. No chest pain. See orders. 06/04/17 Eva Dent MD Continues to feel less short of breath but maybe not as good as yesterday. No chest pain. She does not want to do PT. IV infiltrated and she does not want it restarted. Will switch to po prednisone, continue adjusting medications. Kidney status improving. 06/05/17 Eva Dent MD Continues to feel better. She is less short of breath. Continue medical regiment. Son here for visit. Many questions answered. Discharge plans discussed. 06/06/17 Eva Dent MD Feels good. No shortness of breath. Off O2. Other son here to visit. Stable for discharge to [place].
--- NOTE | 2017-06-06 15:47 | PCM.DCSUM1 ---
Discharge Summary - Discharge Data Discharge Date: 06/06/17 Discharge Disposition: DC/Tfer to SNF 03 Condition: Good - Discharge Diagnosis/Problem(s) (1) CHF, Congestive heart failure SNOMED Code(s): 14113050 ICD Code: I50.9 - HEART FAILURE, UNSPECIFIED Status: Acute Priority: High Current Visit: Yes Onset Date: ~06/02/17 Problem Details: High-dose IV Lasix therapy initiated in the emergency room. Comfort care as above with no echocardiogram, cardiology referral, transfer, etc. per their request (2) Elevated LFTs SNOMED Code(s): 741573849 ICD Code: R79.89 - OTHER SPECIFIED ABNORMAL FINDINGS OF BLOOD CHEMISTRY Status: Acute Priority: Medium Current Visit: Yes Onset Date: 06/02/17 Problem Details: LFTs elevation likely secondary to CHF (3) IA, Myocardial infarction SNOMED Code(s): 12421720 ICD Code: I21.9 - ACUTE MYOCARDIAL INFARCTION, UNSPECIFIED Status: Acute Priority: High Current Visit: Yes Onset Date: ~06/02/17 Problem Details: Known history of coronary artery disease. Elevated troponin I and CK index. Note comfort care, which was confirmed by the patient's son, Jovan during telephone consultation today. Chest pain protocol was initiated upon patient's arrival to the emergency room, although no true anginal complaints prior to admission. 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 She is apparently a nonoperable candidate with low-dose IV nitroglycerin infusion started in the emergency room. No ASA or Brilinta were given secondary to her current Eliquis Romolo which will now be held, with initiation of cardiac dose subcutaneous Lovenox initiated in the emergency room. Note previous history of atrial fibrillation, PVCs and complete bifascicular bundle-branch block. Cardiac enzymes, etc. will next be repeated in the a.m. secondary to comfort care status. Long-term prognosis poor (4) Hyperlipidemia SNOMED Code(s): 39857187 ICD Code: E78.5 - HYPERLIPIDEMIA, UNSPECIFIED Status: Chronic Priority: Medium Current Visit: Yes Problem Details: Lipid panel and glycosylated hemoglobin in the a.m. Qualifiers: Hyperlipidemia type: mixed hyperlipidemia Qualified Code(s): E78.2 - Mixed hyperlipidemia (5) Hypertension SNOMED Code(s): 96973886 ICD Code: I10 - ESSENTIAL (PRIMARY) HYPERTENSION Status: Chronic Priority : Medium Current Visit: Yes Problem Details: Blood pressure somewhat low in the emergency room. Nitroglycerin infusion with caution Qualifiers: Hypertension type: essential hypertension Qualified Code(s): I10 - Essential (primary) hypertension (6) Palliative care patient SNOMED Code(s): 123069043 ICD Code: Z51.5 - ENCOUNTER FOR PALLIATIVE CARE Status: Chronic Priority : Medium Current Visit: Yes Problem Details: As above (7) Peptic reflux disease SNOMED Code(s): 79695501 ICD Code: K21.9 - GASTRO-ESOPHAGEAL REFLUX DISEASE WITHOUT ESOPHAGITIS Status: Chronic Priority: Medium Current Visit: Yes Problem Details: No abdominal complaints. High-dose IV Pepcid given as GI prophylaxis (8) Renal insufficiency SNOMED Code(s): 033743055 ICD Code: N28.9 - DISORDER OF KIDNEY AND URETER, UNSPECIFIED Status: Chronic Priority: Medium Current Visit: Yes Problem Details: Continue to observe her renal status closely secondary to IV Lasix therapy (9) Rheumatoid arthritis SNOMED Code(s): 15051219 ICD Code: M06.9 - RHEUMATOID ARTHRITIS, UNSPECIFIED Status: Chronic Priority: Medium Current Visit: Yes Problem Details: Stable by history with current Plaquenil Qualifiers: Rheumatoid arthritis location: multiple sites Rheumatoid factor presence: unspecified presence Qualified Code(s): M06.9 - Rheumatoid arthritis, unspecified (10) Myocardial ischemia SNOMED Code(s): 157183265 ICD Code: I25.9 - CHRONIC ISCHEMIC HEART DISEASE, UNSPECIFIED Status: Acute Priority: Medium Current Visit: No Onset Date: 06/26/14 (11) Troponin level elevated SNOMED Code(s): 949172190, 588195506 ICD Code: R79.89 - OTHER SPECIFIED ABNORMAL FINDINGS OF BLOOD CHEMISTRY Status: Acute Current Visit: No (12) Pulmonary fibrosis SNOMED Code(s): 69192290 ICD Code: J84.10 - PULMONARY FIBROSIS, UNSPECIFIED Status: Acute Priority : High Current Visit: Yes (13) COPD (chronic obstructive pulmonary disease) SNOMED Code(s): 24286838 ICD Code: J44.9 - CHRONIC OBSTRUCTIVE PULMONARY DISEASE, UNSPECIFIED Status : Acute Priority: High Current Visit: Yes - Patient Instructions Diet: Usual Diet as Tolerated (LGD) Activity: As Tolerated Driving: Do Not Drive Showering/Bathing: May Shower - Discharge Plan Prescriptions/Med Rec: Metoprolol Tartrate [Lopressor] 25 mg PO Q12HR #60 tablet Albuterol/Ipratropium [DuoNeb 3.0-0.5 MG/3 ML] 3 ml .XX Q4H PRN #30 neb PRN Reason: Dyspnea Allopurinol [Zyloprim] 100 mg PO DAILY #30 tab Isosorbide Mononitrate [Imdur] 15 mg PO BEDTIME #15 tab.er Prednisone [IJD: predniSONE] 20 mg PO BID #30 tablet Theophylline [Isai-24] 200 mg PO DAILY #30 cap.er Home Medications: Home Meds Cholecalciferol (Vitamin D3) [Vitamin D3] 2,000 units PO Q48H 04/22/17 [History] Apixaban [Eliquis] 2.5 mg PO BID #60 tablet 05/27/17 [Rx] Calcium Carbonate/Vitamin D3 [Calcium 600-Vit D3 800 Tablet] 1 tab PO DAILY #30 tablet 05/27/17 [Rx] Furosemide [Lasix] 40 mg PO DAILY #30 tab 05/27/17 [Rx] Omeprazole 40 mg PO ACBREAKFAST #30 cap.cr 05/27/17 [Rx] Potassium Chloride [Klor-Con 10] 10 meq PO DAILY #30 tab.er 05/27/17 [Rx] Timolol Maleate [Timoptic 0.5% Ophth Soln] 1 drop EYEBOTH DAILY #1 bottle [Rx] Acetaminophen [Tylenol Extra Strength] 500 mg PO Q4H PRN 06/02/17 [History] Fluticasone Propionate [Flonase] 1 spray NASBOTH BID 06/02/17 [History] Latanoprost 1 drop EYEBOTH BEDTIME 06/02/17 [History] Mag Hydrox/Al Hydrox/Simeth [Antacid Liquid] 30 ml PO DAILY PRN 06/02/17 [ History] Nitroglycerin [Nitrostat] 0.4 mg SL Q5M PRN 06/04/17 [History] Albuterol/Ipratropium [DuoNeb 3.0-0.5 MG/3 ML] 3 ml .XX Q4H PRN #30 neb [Rx] Allopurinol [Zyloprim] 100 mg PO DAILY #30 tab 06/06/17 [Rx] Isosorbide Mononitrate [Imdur] 15 mg PO BEDTIME #15 tab.er 06/06/17 [Rx] Metoprolol Tartrate [Lopressor] 25 mg PO Q12HR #60 tablet 06/06/17 [Rx] Prednisone [IJD: predniSONE] 20 mg PO BID #30 tablet 06/06/17 [Rx] Theophylline [Isai-24] 200 mg PO DAILY #30 cap.er 06/06/17 [Rx] Forms: ED Department Discharge Referrals: Kristie Moore NP [Primary Care Provider] - - Discharge Summary/Plan Comment DC Time >30 min.: No - Patient Data Vitals - Most Recent: Last Vital Signs Temp 97.4 F 06/06/17 12:00 Pulse 103 H 06/06/17 14:59 Resp 15 06/06/17 12:00 BP 104/69 06/06/17 14:59 Pulse Ox 99 06/06/17 12:00 Weight - Most Recent: 116 lb 14.4 oz I&O - Last 24 hours: Intake & Output 06/06/17 06/06/17 06/06/17 06:59 14:59 22:59 Intake Total 2460 Output Total 250 950 Balance -250 1510 Lab Results - Last 24 hrs: Laboratory Results - last 24 hr 06/06/17 06/06/17 Range/Units 07:13 07:13 WBC 13.0 H (4.0-10.2) K/uL RBC 3.39 L (3.77-5.09) M/uL Hgb 11.3 L (11.7-15.5) g/dL Hct 33.8 L (34.0-46.0) % MCV 99.7 H (84.0-98.0) fL MCH 33.3 (28.2-33.3) pg MCHC 33.4 (31.7-36.0) g/dL RDW 15.1 H (11.2-14.1) % Plt Count 186 (150-350) K/uL Neut % (Auto) 89.4 H (45.0-80.0) % Lymph % (Auto) 4.7 L (10.0-50.0) % [place] % (Auto) 5.7 (2.0-14.0) % Eos % (Auto) 0.0 (0.0-5.0) % Baso % (Auto) 0.2 (0.0-2.0) % Neut # (Auto) 11.60 H (1.40-7.00) K/uL Lymph # (Auto) 0.61 (0.50-3.50) K/uL [place] # (Auto) 0.74 (0.00-1.00) K/uL Eos # (Auto) 0.00 (0.00-0.50) K/uL Baso # (Auto) 0.02 (0.00-0.20) K/uL Sodium 137 (136-145) mmol/L Potassium 4.2 (3.5-5.1) mmol/L Chloride 102 (98-107) mmol/L Carbon Dioxide 21.7 (21.0-32.0) mmol/L BUN 57 H (7-18) mg/dL Creatinine 1.40 H (0.51-1.17) mg/dL Est Cr Clr Drug Dosing 25.93 mL/min Estimated GFR (MDRD) 36 mL/min Glucose 99 (74-106) mg/dL Calcium 9.1 (8.5-10.1) mg/dL NT-Pro-B Natriuret Pep 80243 H (0-125) pg/mL Vitamin B12 374 (193-986) pg/mL Folate > 20.0 (8.6-58.9) ng/mL Theophylline 13 (10-20) ug/dL Med Orders - Current: Current Medications Acetaminophen (Tylenol) 650 mg PO Q4H PRN PRN Reason: Pain Last Admin: 06/03/17 14:49 Dose: 650 mg Al Hydroxide/Mg Hydroxide (Maalox Advanced) 30 ml PO DAILY PRN PRN Reason: gi upset Enoxaparin Sodium (Lovenox) 30 mg SUBCUT Q24H [facility] Last Admin: 06/06/17 07:24 Dose: 30 mg Fluticasone Propionate (Flonase) 0 gm NASBOTH BID [facility] Last Admin: 06/06/17 07:19 Dose: 1 spray Folic Acid (Folic Acid) 1 mg PO DAILY [facility] Last Admin: 06/06/17 07:20 Dose: 1 mg Furosemide (Lasix) 40 mg PO DAILY [facility] Last Admin: 06/06/17 07:20 Dose: 40 mg Isosorbide Mononitrate (Imdur) 15 mg PO BEDTIME [facility] Last Admin: 06/05/17 20:11 Dose: 15 mg Latanoprost (Xalatan 0.005% Ophth Soln) 0 ml EYEBOTH BEDTIME [facility] Last Admin: 06/05/17 20:16 Dose: 1 drop Lorazepam (Ativan) 0.5 mg IVPUSH Q4H PRN PRN Reason: Dyspnea Metoprolol Tartrate (Lopressor) 25 mg PO Q12HR [facility] Morphine Sulfate (Morphine) 1 mg IVPUSH Q1H PRN PRN Reason: Dyspnea Morphine Sulfate (Morphine) 0.5 mg .XX Q2H PRN PRN Reason: Dyspnea Omeprazole (Omeprazole) 20 mg PO DAILY@1200 [facility] Last Admin: 06/06/17 11:49 Dose: 20 mg Prednisone (Prednisone) 20 mg PO BID [facility] Last Admin: 06/06/17 07:25 Dose: 20 mg Sodium Chloride (Sodium Chloride 0.9%) 3 ml NEB Q2H PRN PRN Reason: Shortness of Breath Sodium Chloride (Sodium Chloride 0.9%) 3 ml INH Q2H PRN PRN Reason: Dyspnea Temazepam (Restoril) 15 mg PO BEDTIME PRN PRN Reason: Insomnia Last Admin: 06/05/17 20:11 Dose: 15 mg Theophylline (Theophylline Anhydrous) 300 mg PO BEDTIME [facility] Timolol Maleate (Timoptic 0.5% Oph Soln) 0 ml EYEBOTH DAILY [facility] Last Admin: 06/06/17 07:25 Dose: 1 drop Discontinued Medications Enoxaparin Sodium (Lovenox) 60 mg SUBCUT Q24H [facility] Last Admin: 06/02/17 18:56 Dose: 60 mg Enoxaparin Sodium (Lovenox) 30 mg SUBCUT Q24H [facility] Last Admin: 06/04/17 19:49 Dose: 30 mg Enoxaparin Sodium (Lovenox) 30 mg SUBCUT ONETIME ONE Stop: 06/05/17 18:01 Last Admin: 06/05/17 17:40 Dose: 30 mg Famotidine (Pepcid) 40 mg IVPUSH ONETIME ONE Stop: 06/02/17 17:24 Last Admin: 06/02/17 18:02 Dose: 40 mg Famotidine (Pepcid) 20 mg IVPUSH Q24H [facility] Last Admin: 06/03/17 17:37 Dose: 20 mg Furosemide (Lasix) 60 mg IVPUSH NOW ONE Stop: 06/02/17 18:09 Last Admin: 06/02/17 18:13 Dose: 60 mg Furosemide (Lasix) 40 mg IVPUSH Q8H [facility] Last Admin: 06/03/17 08:10 Dose: 40 mg Hydroxychloroquine Sulfate (Plaquenil) 400 mg PO DAILY [facility] Last Admin: 06/03/17 08:15 Dose: 400 mg Hydroxychloroquine Sulfate (Plaquenil) 200 mg PO DAILY [facility] Last Admin: 06/04/17 07:28 Dose: 200 mg Nitroglycerin/Dextrose (Nitroglycerin 25 Mg/D5w 250 Ml) 25 mg in 250 mls @ 3 mls/hr IV TITRATE [facility] PRN Reason: 5 MCG/MIN Last Admin: 06/02/17 18:22 Dose: 5 mcg/min, 3 mls/hr Sodium Chloride (Normal Saline) 1,000 mls @ 30 mls/hr IV ASDIRECTED [facility] Last Admin: 06/02/17 18:22 Dose: 30 mls/hr Aminophylline 300 mg/ Sodium (Chloride) 112 mls @ 200 mls/hr IV ONETIME ONE Stop: 06/03/17 16:03 Last Admin: 06/03/17 16:20 Dose: 200 mls/hr Methotrexate (Methotrexate) 7.5 mg PO FR@0800 [facility] Methylprednisolone Sodium Succinate (Solu-Medrol) 80 mg IVPUSH ONETIME ONE Stop: 06/03/17 15:06 Last Admin: 06/03/17 15:17 Dose: 80 mg Methylprednisolone Sodium Succinate (Solu-Medrol) 40 mg IVPUSH Q12HR [facility] Last Admin: 06/04/17 07:29 Dose: 40 mg Metoprolol Succinate (Toprol Xl) 6.25 mg PO DAILY [facility] Last Admin: 06/04/17 07:28 Dose: 6.25 mg Metoprolol Tartrate (Lopressor) 12.5 mg PO Q12HR [facility] Last Admin: 06/06/17 07:20 Dose: 12.5 mg Metoprolol Tartrate (Lopressor) 12.5 mg PO ONETIME ONE Stop: 06/06/17 12:46 Last Admin: 06/06/17 14:59 Dose: 12.5 mg Potassium Chloride (Klor-Con M20) 20 meq PO TID [facility] Last Admin: 06/03/17 12:00 Dose: 20 meq Rosuvastatin Calcium (Crestor) 20 mg PO DAILY [facility] Last Admin: 06/04/17 07:28 Dose: 20 mg Sodium Chloride (Saline Flush) 10 ml FLUSH ASDIRECTED PRN PRN Reason: Keep Vein Open Last Admin: 06/03/17 17:37 Dose: 10 ml Sodium Chloride (Saline Flush) 10 ml FLUSH Q12HR PRN PRN Reason: Keep Vein Open Sodium Chloride (Saline Flush) 10 ml FLUSH Q12HR [facility] Last Admin: 06/04/17 07:29 Dose: 10 ml Theophylline (Theophylline Anhydrous) 300 mg PO BID [facility] Last Admin: 06/05/17 08:13 Dose: 300 mg *Q Meaningful Use (DIS) - VTE *Q VTE Criteria *Q: - Stroke *Q Stroke Criteria *Q: - AMI *Q AMI Criteria *Q:
[2017-06-06] MEDS ORDERED: Metoprolol Tartrate 25 MG Tab PO SCH (20:00)
[2017-06-06] MEDS ORDERED: Theophylline 300 MG Tab.ER PO SCH (20:00)
== END 2017-06-06 16:15 | DRG 281 ==
LOC: LL.ED 17:15 → LL.MS 19:06
PROVIDERS: ADMIT Family Medicine; ATTEND Family Medicine
DX: I21.9 Acute myocardial infarction, unspecified (principal); I13.0 Hypertensive heart and chronic kidney disease with heart failure and stage 1 through stage 4 chronic kidney disease, or unspecified chronic kidney disease; I50.40 Unspecified combined systolic (congestive) and diastolic (congestive) heart failure; I25.10 Atherosclerotic heart disease of native coronary artery without angina pectoris; I50.9 Heart failure, unspecified; E78.5 Hyperlipidemia, unspecified; N18.9 Chronic kidney disease, unspecified; F09 Unspecified mental disorder due to known physiological condition; Z87.891 Personal history of nicotine dependence; R79.89 Other specified abnormal findings of blood chemistry; H35.30 Unspecified macular degeneration; R30.9 Painful micturition, unspecified; I48.91 Unspecified atrial fibrillation; E78.00 Pure hypercholesterolemia, unspecified; I25.2 Old myocardial infarction; K21.9 Gastro-esophageal reflux disease without esophagitis; K59.09 Other constipation; R32 Unspecified urinary incontinence; M19.90 Unspecified osteoarthritis, unspecified site; G89.29 Other chronic pain; M54.9 Dorsalgia, unspecified; G30.9 Alzheimer's disease, unspecified; F02.80 Dementia in other diseases classified elsewhere, unspecified severity, without behavioral disturbance, psychotic disturbance, mood disturbance, and anxiety; F32.9 Major depressive disorder, single episode, unspecified; F41.9 Anxiety disorder, unspecified; E55.9 Vitamin D deficiency, unspecified; D64.9 Anemia, unspecified; Z51.5 Encounter for palliative care; M06.9 Rheumatoid arthritis, unspecified; J84.10 Pulmonary fibrosis, unspecified; J44.9 Chronic obstructive pulmonary disease, unspecified; Z79.01 Long term (current) use of anticoagulants; Z79.899 Other long term (current) drug therapy; Z88.8 Allergy status to other drugs, medicaments and biological substances
CPT/HCPCS: 36415; 71045; 82550; 82553; 83605; 83735; 84443; 84484; 84550; 85025; 85379; 85610; 85730; 93005; 96374; 96375; 99285; J1650; J1940; J7030; J7050 ×2; 71046; 80048; 80053; 80061; 80198; 82272; 82607; 82746; 82803; 83036; 83880; 86140; 87338; 94761; A9270-GY; J2920; J2930; S0028

== ENCOUNTER 2017-06-16 12:15 | Inpatient (IN) | payer MEDICARE, BC ==
--- NOTE | 2017-06-16 13:24 | EDM.PDOC ---
ED HPI GENERAL MEDICAL PROBLEM - General Chief Complaint: General Stated Complaint: nausea, vomiting, maliase Time Seen by Provider: 06/16/17 12:55 Source of Information: Reports: Patient, Other (half-way notes/report) History Limitations: Reports: Altered Mental Status (mild baseline confusion) - History of Present Illness INITIAL COMMENTS - FREE TEXT/NARRATIVE: Patient sent here for evaluation from [facility] after having emesis episode this morning. Is also complaining of fatigue and not feeling well. Very vague when asked for specifics. Patient has chronic baseline confusion. ROS attempted. Was negative except for complaint of SOB yesterday briefly which resolved. half-way noted increased SOB, increased respiratory rate, weaker pulses, slower heart rate, and more confusion than usual. No reported fevers. No other change reported by [facility]. No obvious colds/coughs/bowel changes. Did have questionable + urine dip recently which was sent for culture and sensitivity. This grew out E Coli today and was susceptible to all antibiotics tested. - Related Data Allergies Allergy/AdvReac Type Severity Reaction Status Date / Time simvastatin [From Zocor] Allergy Hives Verified 06/16/17 15:13 Home Meds: Home Meds Cholecalciferol (Vitamin D3) [Vitamin D3] 2,000 units PO Q48H 04/22/17 [History] Apixaban [Eliquis] 2.5 mg PO BID #60 tablet 05/27/17 [Rx] Calcium Carbonate/Vitamin D3 [Calcium 600-Vit D3 800 Tablet] 1 tab PO DAILY #30 tablet 05/27/17 [Rx] Furosemide [Lasix] 40 mg PO DAILY #30 tab 05/27/17 [Rx] Omeprazole 40 mg PO ACBREAKFAST #30 cap.cr 05/27/17 [Rx] Potassium Chloride [Klor-Con 10] 10 meq PO DAILY #30 tab.er 05/27/17 [Rx] Timolol Maleate [Timoptic 0.5% Ophth Soln] 1 drop EYEBOTH DAILY #1 bottle [Rx] Acetaminophen [Tylenol Extra Strength] 500 mg PO Q4H PRN 06/02/17 [History] Fluticasone Propionate [Flonase] 1 spray NASBOTH BID 06/02/17 [History] Latanoprost 1 drop EYEBOTH BEDTIME 06/02/17 [History] Mag Hydrox/Al Hydrox/Simeth [Antacid Liquid] 30 ml PO DAILY PRN 06/02/17 [ History] Nitroglycerin [Nitrostat] 0.4 mg SL Q5M PRN 06/04/17 [History] Allopurinol [Zyloprim] 100 mg PO DAILY #30 tab 06/06/17 [Rx] Isosorbide Mononitrate [Imdur] 15 mg PO BEDTIME #15 tab.er 06/06/17 [Rx] Metoprolol Tartrate [Lopressor] 25 mg PO Q12HR #60 tablet 06/06/17 [Rx] Theophylline [Isai-24] 200 mg PO DAILY #30 cap.er 06/06/17 [Rx] Albuterol/Ipratropium [DuoNeb 3.0-0.5 MG/3 ML] 3 ml NEB Q4H PRN 06/16/17 [ History] Prednisone [IJD: predniSONE] 10 mg PO BID 06/16/17 [History] Temazepam 15 mg PO BEDTIME PRN 06/16/17 [History] Past Medical History HEENT History: Reports: Allergic Rhinitis, Cataract, Glaucoma, Impaired Vision, Macular Degeneration, Other (See Below) Other HEENT History: Patient wears glasses Cardiovascular History: Reports: Afib, Angina, Arrhythmia, CAD, Cardiomyopathy, Heart Failure, Heart Murmur, High Cholesterol, Hypertension, OK, Pulmonary Hypertension, Other (See Below) Other Cardiovascular History: Non-STEMI 04/23/17 and 06/26/14 with history of multiple MIs in the past and patient apparently a nonoperable candidate. Complete bifascicular bundle-branch block. PVCs. History of combined systolic and diastolic dysfunction with recurrent CHF and cardiomegaly. Moderate mitral valve insufficiency with mild tricuspid valve insufficiency. Chronically elevated Troponin and CK-MB Respiratory History: Reports: Bronchitis, Recurrent, Pneumonia, Recurrent, SOB, Other (See Below) (On night time O2 per patient) Gastrointestinal History: Reports: Chronic Constipation, Chronic Diarrhea, GERD Genitourinary History: Reports: Acute Renal Failure, Chronic Renal Insuffiency, Urinary Incontinence, UTI, Recurrent BEAN SNAPPER History: Reports: Musculoskeletal History: Reports: Arthritis, Back Pain, Chronic, Fracture, Neck Pain, Chronic, Osteoarthritis, Osteoporosis, RA, Other (See Below) Other Musculoskeletal History: right tibial plateau fracture in 2014. Right distal fibula fracture on 11/09/15. Rheumatoid arthritis with current Plaquenil no therapy fracture Neurological History: Reports: Alzheimers Disease, Headaches, Chronic Other Neuro History: Early organic brain syndrome Psychiatric History: Reports: Anxiety, Depression Other Psychiatric History: Stress Endocrine/Metabolic History: Reports: Osteopenia, Osteoporosis, Vitamin D Deficiency, Other (See Below) Other Endocrine/Metabolic History: Hyponatremia likely secondary to CHF. Hypomagnesemia Hematologic History: Reports: Anemia, Blood Transfusion(s) Immunologic History: Reports: Immunosuppression Dermatologic History: Reports: None - Infectious Disease History Infectious Disease History: Reports: Chicken Pox, Measles, Mumps, Shingles - Past Surgical History Head Surgeries/Procedures: Reports: None HEENT Surgical History: Reports: Adenoidectomy, Cataract Surgery, Oral Surgery, Tonsillectomy, Other (See Below) Other HEENT Surgeries/Procedures: Bilateral cataract surgery. Multiple teeth extractions with complete upper dentures and partial lowers Cardiovascular Surgical History: Reports: None Respiratory Surgical History: Reports: None GI Surgical History: Reports: EGD, Other (See Below) Other GI Surgeries/Procedures: Records of EGD not available Female Surgical History: Reports: None Neurological Surgical History: Reports: None Musculoskeletal Surgical History: Reports: Other (See Below) Other Musculoskeletal Surgeries/Procedures:: Excision of apparent multiple rheumatoid nodules from the hands and feet Oncologic Surgical History: Reports: None Dermatological Surgical History: Reports: None - Past Imaging History Past Imaging History: Reports: Angiography (Records not available), Cardiac Echo (Records unavailable), MRI (Right knee on 11/24/14) Social & Family History - Family History Family Medical History: Unobtainable Cardiac: Reports: CAD, Heart Failure, OK, Other (See Below) Other Cardiac Family History: Mother with apparent OK and CHF Neurological: Reports: CVA, Other (See Below) Other Neurological Family History: Father with history of CVA Oncologic: Reports: Bone, Breast, Other (See Below) Other Oncologic Family History: Sister with breast cancer; father with bone cancer - Tobacco Use Smoking Status *Q: Former Smoker Years of Tobacco use: 28 Packs/Tins Daily: 0.8 Used Tobacco, but Quit: Yes Month Tobacco Last Used: May 2014 Second Hand Smoke Exposure: No - Caffeine Use Caffeine Use: Reports: Coffee - Alcohol Use Days Per Week of Alcohol Use: 4 Number of Drinks Per Day: 2 Total Drinks Per Week: 8 - Recreational Drug Use Recreational Drug Use: No Drug Use in Last 12 Months: No - Living Situation & Occupation Living situation: Reports: , Extended Care Facility ([facility]) ED ROS GENERAL - Review of Systems Review Of Systems: See Below Constitutional: Reports: Malaise, Fatigue, Decreased Appetite. Denies: Fever, Chills, Weakness, Night Sweats, Diaphoresis, Weight Loss HEENT: Reports: No Symptoms Respiratory: Reports: Shortness of Breath (intermittent. Denies it at this time) . Denies: Wheezing, Pleuritic Chest Pain, Cough, Sputum, Hemoptysis Cardiovascular: Reports: No Symptoms. Denies: Chest Pain GI/Abdominal: Reports: Decreased Appetite, Nausea, Vomiting. Denies: Abdominal Pain, Black Stool, Bloody Stool, Constipation, Diarrhea, Distension, Hematemesis , Hematochezia, Melena : Reports: No Symptoms Musculoskeletal: Reports: Other (has chronic limb discomfort from R.A., states no acute changes in pain) Skin: Reports: Other (rash, non-pruritic/does not bother patient) Neurological: Reports: Confusion (chronic per [facility]), Other (patient uses walker at [facility] for ambulation). Denies: Headache, Paresthesia, Pre- Existing Deficit, Trouble Speaking Psychiatric: Reports: No Symptoms ED EXAM, GENERAL - Physical Exam Exam: See Below Exam Limited By: No Limitations General Appearance: Alert, WD/WN, No Apparent Distress Eye Exam: Bilateral Eye: EOMI, PERRL Ears: Normal External Exam, Normal Canal, Hearing Grossly Normal, Normal TMs Nose: No Blood. No: Nasal Tenderness, Nasal Deformity, Nasal Swelling, Nasal Drainage Throat/Mouth: Normal Lips, Normal Teeth, Normal Gums, Normal Oropharynx, Normal Voice, No Airway Compromise Head: Atraumatic, Normocephalic Neck: Normal Inspection, Supple, Non-Tender, Full Range of Motion. No: Lymphadenopathy (L), Lymphadenopathy (R) Respiratory/Chest: No Respiratory Distress, Lungs Clear, Normal Breath Sounds, No Accessory Muscle Use, Chest Non-Tender Cardiovascular: Tachycardia, Systolic Murmur Peripheral Pulses: 1+: Radial (L), 2+: Radial (R), Dorsalis Pedis (L), Dorsalis Pedis (R) GI/Abdominal: Normal Bowel Sounds, Soft, Non-Tender, No Distention (Female) Exam: Deferred Rectal (Female) Exam: Deferred Back Exam: No: CVA Tenderness (L), CVA Tenderness (R), Muscle Spasm, Paraspinal Tenderness, Vertebral Tenderness Extremities: Non-Tender, Normal Capillary Refill, Pedal Edema (mild, symetric, bilateral). No: Pineda's Sign Neurological: Alert, No Motor/Sensory Deficits, Confused (knows she is in hospital. Does not know date/year/day) Psychiatric: Normal Affect, Normal Mood Skin Exam: Warm, Dry, Intact, Petechiae (noted over trunk/limbs) EKG INTERPRETATION EKG Date: 06/16/17 Time: 13:37 Rhythm: Other (sinus tach) Rate (Beats/Min): 107 [place]: Normal P-Wave: Present QRS: RBBB ST-T: Other (No acute elevation/depression noted. Compared to prior EKGS and morphology similar.) QT: Normal Comparison: Change From Previous EKG (Now has first degree AV block) Course - Vital Signs Last Recorded V/S: Last Vital Signs Temp 36.0 C 06/16/17 12:24 Pulse 110 H 06/16/17 13:48 Resp 20 06/16/17 13:48 BP 94/70 06/16/17 13:48 Pulse Ox 91 L 06/16/17 13:48 - Orders/Labs/Meds Orders: Active Orders 24 hr Category Date Time Status EKG Documentation Completion [RC] ASDIRECTED Care 06/16/17 13:31 Active Chest 2V [CR] Stat Exams 06/16/17 13:11 Taken UA W/MICROSCOPIC [URIN] Stat Lab 06/16/17 13:11 Uncollected Sodium Chloride 0.9% [Saline Flush] Med 06/16/17 13:11 Active 10 ml FLUSH ASDIRECTED PRN Saline Lock Insert [OM.PC] Routine Oth 06/16/17 13:11 Ordered Medication Orders Sodium Chloride (Saline Flush) 10 ml FLUSH ASDIRECTED PRN PRN Reason: Keep Vein Open Labs: Laboratory Tests 06/16/17 06/16/17 06/16/17 Range/Units 13:15 13:15 13:15 WBC 21.2 H (4.0-10.2) K/uL RBC 4.45 (3.77-5.09) M/uL Hgb 14.9 D (11.7-15.5) g/dL Hct 45.4 (34.0-46.0) % MCV 102.0 H (84.0-98.0) fL MCH 33.5 H (28.2-33.3) pg MCHC 32.8 (31.7-36.0) g/dL RDW 17.2 H (11.2-14.1) % Plt Count 194 (150-350) K/uL Neut % (Auto) 86.9 H (45.0-80.0) % Lymph % (Auto) 3.8 L (10.0-50.0) % [place] % (Auto) 7.7 (2.0-14.0) % Eos % (Auto) 1.3 (0.0-5.0) % Baso % (Auto) 0.3 (0.0-2.0) % Neut # (Auto) 18.42 H (1.40-7.00) K/uL Lymph # (Auto) 0.81 (0.50-3.50) K/uL [place] # (Auto) 1.64 H (0.00-1.00) K/uL Eos # (Auto) 0.28 (0.00-0.50) K/uL Baso # (Auto) 0.07 (0.00-0.20) K/uL Sodium 133 L (136-145) mmol/L Potassium 4.5 (3.5-5.1) mmol/L Chloride 97 L (98-107) mmol/L Carbon Dioxide 23.8 (21.0-32.0) mmol/L BUN 53 H (7-18) mg/dL Creatinine 1.57 H (0.51-1.17) mg/dL Est Cr Clr Drug Dosing 25.72 mL/min Estimated GFR (MDRD) 32 mL/min Glucose 117 H (74-106) mg/dL Lactic Acid 4.6 H (0.4-2.0) mmol/L Calcium 9.8 (8.5-10.1) mg/dL Total Bilirubin 1.3 H (0.2-1.0) mg/dL AST 48 H (15-37) U/L ALT 57 (12-78) U/L Alkaline Phosphatase 115 (46-116) IU/L Creatine Kinase (26-308) U/L Creatine Kinase Index (0.0-2.5) % CK-MB (CK-2) (0.00-3.60) ng/mL Troponin I (0.000-0.056) ng/mL NT-Pro-B Natriuret Pep 70734 H (0-125) pg/mL Total Protein 7.0 (6.4-8.2) g/dL Albumin 3.5 (3.4-5.0) g/dL 06/16/17 Range/Units 13:15 WBC (4.0-10.2) K/uL RBC (3.77-5.09) M/uL Hgb (11.7-15.5) g/dL Hct (34.0-46.0) % MCV (84.0-98.0) fL MCH (28.2-33.3) pg MCHC (31.7-36.0) g/dL RDW (11.2-14.1) % Plt Count (150-350) K/uL Neut % (Auto) (45.0-80.0) % Lymph % (Auto) (10.0-50.0) % [place] % (Auto) (2.0-14.0) % Eos % (Auto) (0.0-5.0) % Baso % (Auto) (0.0-2.0) % Neut # (Auto) (1.40-7.00) K/uL Lymph # (Auto) (0.50-3.50) K/uL [place] # (Auto) (0.00-1.00) K/uL Eos # (Auto) (0.00-0.50) K/uL Baso # (Auto) (0.00-0.20) K/uL Sodium (136-145) mmol/L Potassium (3.5-5.1) mmol/L Chloride (98-107) mmol/L Carbon Dioxide (21.0-32.0) mmol/L BUN (7-18) mg/dL Creatinine (0.51-1.17) mg/dL Est Cr Clr Drug Dosing mL/min Estimated GFR (MDRD) mL/min Glucose (74-106) mg/dL Lactic Acid (0.4-2.0) mmol/L Calcium (8.5-10.1) mg/dL Total Bilirubin (0.2-1.0) mg/dL AST (15-37) U/L ALT (12-78) U/L Alkaline Phosphatase (46-116) IU/L Creatine Kinase 100 (26-308) U/L Creatine Kinase Index 7.1 H (0.0-2.5) % CK-MB (CK-2) 7.10 H* (0.00-3.60) ng/mL Troponin I 1.945 H* (0.000-0.056) ng/mL NT-Pro-B Natriuret Pep (0-125) pg/mL Total Protein (6.4-8.2) g/dL Albumin (3.4-5.0) g/dL Meds: Medications Generic Name Dose Route Start Last Admin Trade Name Freq PRN Reason Stop Dose Admin Sodium Chloride 10 ml 06/16/17 13:11 Saline Flush FLUSH ASDIRECTED PRN Keep Vein Open - Radiology Interpretation Free Text/Narrative:: Chest film shows no acute changes when compared to recent films taken several weeks ago. No obvious new infiltrate/infectious process noted. - Re-Assessments/Exams Free Text/Narrative Re-Assessment/Exam: 06/16/17 15:34 Patient's WBC elevated to 21.2 with left shift. Elevated MCV/RDW. BUN and Cr elevated as was lactic acid at 4.6 Total bili 1.3, AST 48 Troponin and CKMB are routinely elevated in this patient and today are 1.94 and 7.10 respectively. ProBNP over 75,000 Suspect chronic elevation of Troponin/CKMB from patient's cardiomyopathy and CHF. Petechial rash may be secondary to receiving Lovenox during recent admission. Normal platelets noted today. Unable to get new UA by time patient admitted. Did check with [facility] [place] spoke to both and Kristie, patient had positive urine dip at their clinic and did grow out EColi. Will admit to hospital for IV antibiotics and continued monitoring given her elevated Lactic Acid/tachycardia and will observe for improvement of symptoms with selected therapy. Departure - Departure Time of Disposition: 15:40 Disposition: Admitted As Inpatient 67 Condition: Fair Clinical Impression: UTI (urinary tract infection) Qualifiers: Urinary tract infection type: site unspecified Hematuria presence: without hematuria Qualified Code(s): N39.0 - Urinary tract infection, site not specified - Discharge Information Referrals: Sheets-Aline Dent MD [Primary Care Provider] - Forms: ED Department Discharge - Problem List & Annotations (1) UTI (urinary tract infection) SNOMED Code(s): 36979388 Code(s): N39.0 - URINARY TRACT INFECTION, SITE NOT SPECIFIED Status: Acute Priority: High Current Visit: Yes Onset Date: ~06/14/17 Annotation/ Comment:: Increased weakness, tachycardia, elevated Lactic Acid, and WBC. Patient does not complain of UTI symptoms however had + dip and culture performed at clinic. Will treat with IV Rocephin and observe for further changes and patient response to treatment plan Qualifiers: Urinary tract infection type: site unspecified Hematuria presence: without hematuria Qualified Code(s): N39.0 - Urinary tract infection, site not specified (2) Troponin level elevated SNOMED Code(s): 805338533, 573936814 Code(s): R79.89 - OTHER SPECIFIED ABNORMAL FINDINGS OF BLOOD CHEMISTRY Status: Acute Priority: Low Current Visit: Yes Annotation/Comment:: Chronically elevated. CKMB also chronically elevated. (3) CHF, Congestive heart failure SNOMED Code(s): 89077657 Code(s): I50.9 - HEART FAILURE, UNSPECIFIED Status: Acute Priority: Medium Current Visit: Yes Onset Date: ~06/02/17 Annotation/Comment:: Chronic. Comfort care as above with no echocardiogram, cardiology referral, transfer, etc. per their request (4) Renal insufficiency SNOMED Code(s): 939643030 Code(s): N28.9 - DISORDER OF KIDNEY AND URETER, UNSPECIFIED Status: Chronic Priority: Medium Current Visit: No Annotation/Comment:: Continue to observe her renal status. (5) Elevated LFTs SNOMED Code(s): 793571610 Code(s): R79.89 - OTHER SPECIFIED ABNORMAL FINDINGS OF BLOOD CHEMISTRY Status: Chronic Priority: Low Current Visit: No Onset Date: 06/02/17 Annotation/Comment:: LFTs elevation likely secondary to CHF (6) Hypertension SNOMED Code(s): 57093322 Code(s): I10 - ESSENTIAL (PRIMARY) HYPERTENSION Status: Chronic Priority : Low Current Visit: No Annotation/Comment:: Chronic. Blood pressure somewhat low in the emergency room. Will continue to observe and hold medications for HTN as needed. Qualifiers: Hypertension type: essential hypertension Qualified Code(s): I10 - Essential (primary) hypertension (7) Hyperlipidemia SNOMED Code(s): 77910240 Code(s): E78.5 - HYPERLIPIDEMIA, UNSPECIFIED Status: Chronic Priority: Low Current Visit: No Annotation/Comment:: Stable. Qualifiers: Hyperlipidemia type: mixed hyperlipidemia Qualified Code(s): E78.2 - Mixed hyperlipidemia (8) Rheumatoid arthritis SNOMED Code(s): 78432611 Code(s): M06.9 - RHEUMATOID ARTHRITIS, UNSPECIFIED Status: Chronic Priority: Low Current Visit: No Annotation/Comment:: Stable by history with current Plaquenil Qualifiers: Rheumatoid arthritis location: multiple sites Rheumatoid factor presence: unspecified presence Qualified Code(s): M06.9 - Rheumatoid arthritis, unspecified (9) Peptic reflux disease SNOMED Code(s): 73831931 Code(s): K21.9 - GASTRO-ESOPHAGEAL REFLUX DISEASE WITHOUT ESOPHAGITIS Status: Chronic Priority: Low Current Visit: No Annotation/Comment:: No abdominal complaints. (10) Organic brain syndrome SNOMED Code(s): 606639627 Code(s): F09 - UNSP MENTAL DISORDER DUE TO KNOWN PHYSIOLOGICAL CONDITION Status: Chronic Priority: Medium Current Visit: No Annotation/Comment:: Stable by history (11) Palliative care patient SNOMED Code(s): 145594087 Code(s): Z51.5 - ENCOUNTER FOR PALLIATIVE CARE Status: Chronic Priority: Medium Current Visit: No Annotation/Comment:: As above (12) Pulmonary fibrosis SNOMED Code(s): 35265255 Code(s): J84.10 - PULMONARY FIBROSIS, UNSPECIFIED Status: Chronic Priority: Medium Current Visit: Yes (13) COPD (chronic obstructive pulmonary disease) SNOMED Code(s): 73197196 Code(s): J44.9 - CHRONIC OBSTRUCTIVE PULMONARY DISEASE, UNSPECIFIED Status : Chronic Priority: Medium Current Visit: Yes - Problem List Review Problem List Initiated/Reviewed/Updated: Yes - My Orders Last 24 Hours: My Active Orders 06/16/17 13:11 Chest 2V [CR] Stat UA W/MICROSCOPIC [URIN] Stat Sodium Chloride 0.9% [Saline Flush] 10 ml FLUSH ASDIRECTED PRN Saline Lock Insert [OM.PC] Routine 06/16/17 13:31 EKG Documentation Completion [RC] ASDIRECTED - Assessment/Plan Admission H&P: Please use this note as an admission H&P Last 24 Hours: My Active Orders 06/16/17 13:11 Chest 2V [CR] Stat UA W/MICROSCOPIC [URIN] Stat Sodium Chloride 0.9% [Saline Flush] 10 ml FLUSH ASDIRECTED PRN Saline Lock Insert [OM.PC] Routine 06/16/17 13:31 EKG Documentation Completion [RC] ASDIRECTED Assessment:: Patient with multiple chronic conditions. Recent increased malaise and confusion. Suspect UTI. Comfort care. Plan: Admit. Telemetry. IV Rocephin. Monitor for response. Have discussed patient with (patient's primary provider) and she is in agreement with plan. Anticipate 3-4 days of inpatient care due to complex chronic medical conditions in addition to the UTI.
[2017-06-16] MEDS: cefTRIAXone 1 GM in Sodium Chloride 0.9% 100 ML IV SCH (17:10)
[2017-06-16] MEDS: Sodium Chloride 0.9% 10 ML Syringe FLUSH PRN (17:10)
[2017-06-16] MEDS ORDERED: Bisacodyl 5 MG Tab PO PRN (17:10)
[2017-06-16] MEDS ORDERED: Nitroglycerin 0.4 MG Tab.SL SL PRN (17:19)
[2017-06-16] MEDS ORDERED: Acetaminophen 500 MG Tab PO PRN (17:19)
[2017-06-16] MEDS ORDERED: Albuterol/Ipratropium 3.0-0.5 MG/3 ML Neb Soln NEB PRN (17:19)
[2017-06-16] MEDS ORDERED: Sodium Chloride 0.9% 500 ML IV ONE (17:23)
[2017-06-16] MEDS ORDERED: Aluminum Hydroxide/Magnesium Hydroxide/Simethicone Susp 30 ML Cup PO PRN (17:30)
[2017-06-16] MEDS: Apixaban 2.5 MG Tab PO SCH (18:07)
[2017-06-16] MEDS: predniSONE 20 MG Tab PO SCH (18:07)
[2017-06-16] MEDS: Fluticasone Propionate Nasal Spray 16 GM Bottle NASBOTH SCH (18:09)
[2017-06-16] MEDS ORDERED: Isosorbide Mononitrate 30 MG Tab.ER PO SCH (20:00)
[2017-06-16] MEDS: Temazepam 15 MG Cap PO PRN (20:48)
[2017-06-16] MEDS: Metoprolol Tartrate 25 MG Tab PO SCH (20:48)
[2017-06-16] MEDS: Latanoprost 0.005% Ophth Soln 2.5 ML Bottle EYEBOTH SCH (20:48)
[2017-06-17] MEDS ORDERED: Potassium Chloride 10 MEQ Tab.ER PO SCH (08:00)
[2017-06-17] MEDS ORDERED: Furosemide 40 MG Tab PO SCH (08:00)
[2017-06-17] MEDS ORDERED: Calcium Carbonate/Vitamin D3 625 MG-125 Unit Tab PO SCH (08:00)
[2017-06-17] MEDS: Omeprazole 20 MG Cap.CR PO SCH (08:54)
[2017-06-17] MEDS: Fluticasone Propionate Nasal Spray 16 GM Bottle NASBOTH SCH ×2 (08:55→17:12)
[2017-06-17] MEDS: Timolol Maleate 0.5% Ophth Soln 5 ML Bottle EYEBOTH SCH (08:56)
[2017-06-17] MEDS: Apixaban 2.5 MG Tab PO SCH ×2 (08:57→17:12)
[2017-06-17] MEDS: Allopurinol 100 MG Tab PO SCH (09:04)
[2017-06-17] MEDS: predniSONE 20 MG Tab PO SCH (09:05)
[2017-06-17] MEDS: THEOPHYLLINE 100 MG PO SCH (09:07)
[2017-06-17] MEDS: Cholecalciferol (Vitamin D3) 1,000 Unit Tab PO SCH (09:09)
[2017-06-17] MEDS: Metoprolol Tartrate 25 MG Tab PO SCH ×2 (09:12→19:47)
[2017-06-17] MEDS: cefTRIAXone 1 GM in Sodium Chloride 0.9% 100 ML IV SCH (15:55)
[2017-06-17] MEDS: Sodium Chloride 0.9% 10 ML Syringe FLUSH PRN (15:56)
[2017-06-17] MEDS: Latanoprost 0.005% Ophth Soln 2.5 ML Bottle EYEBOTH SCH (19:50)
--- NOTE | 2017-06-17 21:20 | PCM.PN ---
- General Info Date of Service: 06/17/17 Functional Status: Reports: Pain Controlled - Review of Systems General: Reports: Weakness HEENT: Reports: No Symptoms Pulmonary: Reports: No Symptoms Cardiovascular: Reports: No Symptoms Gastrointestinal: Reports: Diarrhea (improved today) Genitourinary: Reports: No Symptoms Musculoskeletal: Reports: No Symptoms Skin: Reports: No Symptoms Neurological: Reports: Weakness Psychiatric: Reports: No Symptoms - Patient Data Vitals - Most Recent: Last Vital Signs Temp 97.9 F 06/17/17 18:00 Pulse 107 H 06/17/17 19:48 Resp 26 H 06/17/17 18:00 BP 111/79 06/17/17 19:48 Pulse Ox 97 06/17/17 18:00 Weight - Most Recent: 116 lb 6.395 oz I&O - Last 24 Hours: Intake & Output 06/17/17 06/17/17 06/17/17 06:59 14:59 22:59 Intake Total 540 200 240 Output Total 150 Balance 540 50 240 Lab Results Last 24 Hours: Laboratory Results - last 24 hr 06/17/17 06/17/17 06/17/17 Range/Units 06:50 06:50 06:50 WBC 15.1 H (4.0-10.2) K/uL RBC 3.66 L (3.77-5.09) M/uL Hgb 12.3 D (11.7-15.5) g/dL Hct 36.4 (34.0-46.0) % MCV 99.5 H (84.0-98.0) fL MCH 33.6 H (28.2-33.3) pg MCHC 33.8 (31.7-36.0) g/dL RDW 16.2 H (11.2-14.1) % Plt Count 133 L (150-350) K/uL Neut % (Auto) 89.1 H (45.0-80.0) % Lymph % (Auto) 3.2 L (10.0-50.0) % Roberts % (Auto) 6.7 (2.0-14.0) % Eos % (Auto) 0.7 (0.0-5.0) % Baso % (Auto) 0.3 (0.0-2.0) % Neut # (Auto) 13.44 H (1.40-7.00) K/uL Lymph # (Auto) 0.48 L (0.50-3.50) K/uL Roberts # (Auto) 1.01 H (0.00-1.00) K/uL Eos # (Auto) 0.10 (0.00-0.50) K/uL Baso # (Auto) 0.04 (0.00-0.20) K/uL Sodium 134 L (136-145) mmol/L Potassium 3.9 (3.5-5.1) mmol/L Chloride 101 (98-107) mmol/L Carbon Dioxide 22.2 (21.0-32.0) mmol/L BUN 51 H (7-18) mg/dL Creatinine 1.24 H (0.51-1.17) mg/dL Est Cr Clr Drug Dosing 30.16 mL/min Estimated GFR (MDRD) 42 mL/min Glucose 99 (74-106) mg/dL Lactic Acid 1.2 (0.4-2.0) mmol/L Calcium 8.7 (8.5-10.1) mg/dL Med Orders - Current: Current Medications Acetaminophen (Tylenol Extra Strength) 500 mg PO Q4H PRN PRN Reason: Pain Al Hydroxide/Mg Hydroxide (Mag-Al Plus) 30 ml PO DAILY PRN PRN Reason: gi upset Albuterol/Ipratropium (Duoneb 3.0-0.5 Mg/3 Ml) 3 ml NEB Q4H PRN PRN Reason: Dyspnea Allopurinol (Zyloprim) 100 mg PO DAILY [facility] Last Admin: 06/17/17 09:04 Dose: 100 mg Apixaban (Eliquis) 2.5 mg PO BID [facility] Last Admin: 06/17/17 17:12 Dose: 2.5 mg Bisacodyl (Dulcolax) 5 mg PO DAILY PRN PRN Reason: Constipation Cholecalciferol (Vitamin D3) 2,000 units PO Q48H [facility] Last Admin: 06/17/17 09:09 Dose: 2,000 units Fluticasone Propionate (Flonase) 0 gm NASBOTH BID [facility] Last Admin: 06/17/17 17:12 Dose: 1 spray Ceftriaxone Sodium 1 gm/ (Sodium Chloride) 100 mls @ 200 mls/hr IV Q24H [facility] Last Admin: 06/17/17 15:55 Dose: 200 mls/hr Latanoprost (Xalatan 0.005% Ophth Soln) 0 ml EYEBOTH BEDTIME [facility] Last Admin: 06/17/17 19:50 Dose: 1 drop Metoprolol Tartrate (Lopressor) 25 mg PO Q12HR [facility] Last Admin: 06/17/17 19:47 Dose: Not Given Nitroglycerin (Nitrostat) 0.4 mg SL Q5M PRN PRN Reason: Chest Pain Theophylline [Isai- (24] 100 Mg) 200 mg PO DAILY [facility] Last Admin: 06/17/17 09:07 Dose: 200 mg Omeprazole (Omeprazole) 40 mg PO ACBREAKFAST [facility] Last Admin: 06/17/17 08:54 Dose: 40 mg Prednisone (Prednisone) 10 mg PO DAILY [facility] Sodium Chloride (Saline Flush) 10 ml FLUSH ASDIRECTED PRN PRN Reason: Keep Vein Open Last Admin: 06/17/17 15:56 Dose: 10 ml Temazepam (Restoril) 15 mg PO BEDTIME PRN PRN Reason: Insomnia Last Admin: 06/16/17 20:48 Dose: 15 mg Timolol Maleate (Timoptic 0.5% Ophth Soln) 0 ml EYEBOTH DAILY [facility] Last Admin: 06/17/17 08:56 Dose: 1 drop Discontinued Medications Calcium Carbonate (Oystcal-D 625 Mg-125 Units) 1 tab PO DAILY [facility] Last Admin: 06/17/17 09:04 Dose: 1 tab Furosemide (Lasix) 40 mg PO DAILY [facility] Last Admin: 06/17/17 08:57 Dose: 40 mg Sodium Chloride (Normal Saline) 500 mls @ 75 mls/hr IV ONETIME ONE Stop: 06/17/17 00:02 Last Admin: 06/16/17 18:10 Dose: 75 mls/hr Isosorbide Mononitrate (Imdur) 15 mg PO BEDTIME [facility] Last Admin: 06/16/17 20:47 Dose: 15 mg Potassium Chloride (Klor-Con 10) 10 meq PO DAILY [facility] Last Admin: 06/17/17 08:57 Dose: 10 meq Prednisone (Prednisone) 10 mg PO BID [facility] Last Admin: 06/17/17 09:05 Dose: 10 mg - Exam General: Alert, Oriented, Cooperative HEENT: Mucous Membr. Moist/[place] Neck: Trachea Midline, No JVD Lungs: Clear to Auscultation, Normal Respiratory Effort Cardiovascular: Regular Rate, Regular Rhythm GI/Abdominal Exam: Normal Bowel Sounds, Soft, Non-Tender, No Distention (Female) Exam: Deferred Back Exam: Normal Inspection Extremities: Normal Inspection, Non-Tender Skin: Warm, Dry, Intact Neurological: No New Focal Deficit Psy/Mental Status: Alert, Normal Affect, Normal Mood - Problem List & Annotations (1) UTI (urinary tract infection) SNOMED Code(s): 94534797 Code(s): N39.0 - URINARY TRACT INFECTION, SITE NOT SPECIFIED Status: Acute Priority: High Current Visit: Yes Onset Date: ~06/14/17 Qualifiers: Urinary tract infection type: site unspecified Hematuria presence: without hematuria Qualified Code(s): N39.0 - Urinary tract infection, site not specified Annotation/Comment:: Increased weakness, tachycardia, elevated Lactic Acid, and WBC. Patient does not complain of UTI symptoms however had + dip and culture performed at clinic. Will treat with IV Rocephin and observe for further changes and patient response to treatment plan (2) COPD (chronic obstructive pulmonary disease) SNOMED Code(s): 64731708 Code(s): J44.9 - CHRONIC OBSTRUCTIVE PULMONARY DISEASE, UNSPECIFIED Status : Chronic Priority: Medium Current Visit: Yes (3) Pulmonary fibrosis SNOMED Code(s): 05162757 Code(s): J84.10 - PULMONARY FIBROSIS, UNSPECIFIED Status: Chronic Priority: Medium Current Visit: Yes (4) Hypertension SNOMED Code(s): 12271834 Code(s): I10 - ESSENTIAL (PRIMARY) HYPERTENSION Status: Chronic Priority : Low Current Visit: No Qualifiers: Hypertension type: essential hypertension Qualified Code(s): I10 - Essential (primary) hypertension Annotation/Comment:: Chronic. Blood pressure somewhat low in the emergency room. Will continue to observe and hold medications for HTN as needed. (5) Organic brain syndrome SNOMED Code(s): 699834276 Code(s): F09 - UNSP MENTAL DISORDER DUE TO KNOWN PHYSIOLOGICAL CONDITION Status: Chronic Priority: Medium Current Visit: No Annotation/Comment:: Stable by history (6) Palliative care patient SNOMED Code(s): 003576231 Code(s): Z51.5 - ENCOUNTER FOR PALLIATIVE CARE Status: Chronic Priority: Medium Current Visit: No Annotation/Comment:: As above (7) Peptic reflux disease SNOMED Code(s): 70648925 Code(s): K21.9 - GASTRO-ESOPHAGEAL REFLUX DISEASE WITHOUT ESOPHAGITIS Status: Chronic Priority: Low Current Visit: No Annotation/Comment:: No abdominal complaints. (8) Renal insufficiency SNOMED Code(s): 041669053 Code(s): N28.9 - DISORDER OF KIDNEY AND URETER, UNSPECIFIED Status: Chronic Priority: Medium Current Visit: No Annotation/Comment:: Continue to observe her renal status. (9) Rheumatoid arthritis SNOMED Code(s): 93671742 Code(s): M06.9 - RHEUMATOID ARTHRITIS, UNSPECIFIED Status: Chronic Priority: Low Current Visit: No Qualifiers: Rheumatoid arthritis location: multiple sites Rheumatoid factor presence: unspecified presence Qualified Code(s): M06.9 - Rheumatoid arthritis, unspecified Annotation/Comment:: Stable by history with current Plaquenil - Problem List Review Problem List Initiated/Reviewed/Updated: Yes - My Orders Last 24 Hours: My Active Orders 06/17/17 15:09 CULTURE URINE [RM] Routine 06/18/17 05:11 THEOPHYLLINE [CHEM] Routine URIC ACID [CHEM] Routine 06/18/17 08:00 predniSONE 10 mg PO DAILY - Plan Plan:: 06/17/17 Eva Dent MD Still weak and some confusion. Diarrhea improved.
[2017-06-17] MEDS: Temazepam 15 MG Cap PO PRN (23:20)
[2017-06-18] MEDS ORDERED: predniSONE 20 MG Tab PO SCH (08:00)
[2017-06-18] MEDS: Omeprazole 20 MG Cap.CR PO SCH (08:18)
[2017-06-18] MEDS: Apixaban 2.5 MG Tab PO SCH (08:19)
[2017-06-18] MEDS: Fluticasone Propionate Nasal Spray 16 GM Bottle NASBOTH SCH ×2 (08:19→18:03)
[2017-06-18] MEDS: Allopurinol 100 MG Tab PO SCH (08:20)
[2017-06-18] MEDS: THEOPHYLLINE 100 MG PO SCH (08:21)
[2017-06-18] MEDS: Timolol Maleate 0.5% Ophth Soln 5 ML Bottle EYEBOTH SCH (08:22)
[2017-06-18] MEDS: Metoprolol Tartrate 25 MG Tab PO SCH ×2 (08:25→20:17)
[2017-06-18] MEDS: Fluconazole 100 MG Tab PO SCH (10:27)
[2017-06-18] MEDS: Morphine 2 MG/ML Syringe IVPUSH PRN (11:21)
[2017-06-18] MEDS: Ondansetron 4 MG/2 ML SDV IVPUSH PRN ×2 (11:21→23:18)
[2017-06-18] MEDS: Sodium Chloride 0.9% 10 ML Syringe FLUSH PRN ×2 (11:22→15:11)
[2017-06-18] MEDS ORDERED: Theophylline 300 MG Tab.ER PO SCH (12:00)
[2017-06-18] MEDS: cefTRIAXone 1 GM in Sodium Chloride 0.9% 100 ML IV SCH (15:11)
--- NOTE | 2017-06-18 16:46 | PCM.PN ---
- General Info Date of Service: 06/18/17 Functional Status: Reports: Pain Controlled (by morphine) - Review of Systems General: Reports: Weakness, Fatigue, Malaise, Chills, Appetite (decreased) HEENT: Reports: No Symptoms Pulmonary: Reports: No Symptoms Cardiovascular: Reports: No Symptoms Gastrointestinal: Reports: Decreased Appetite, Diarrhea, Nausea, Vomiting Genitourinary: Reports: No Symptoms Musculoskeletal: Reports: Other (generalized pain) Skin: Reports: Rash (petichiae) Neurological: Reports: Dizziness, Weakness Psychiatric: Reports: No Symptoms - Patient Data Vitals - Most Recent: Last Vital Signs Temp 98.5 F 06/18/17 14:00 Pulse 110 H 06/18/17 14:00 Resp 20 06/18/17 14:00 BP 115/75 06/18/17 14:00 Pulse Ox 94 L 06/18/17 14:00 Weight - Most Recent: 116 lb 6.395 oz I&O - Last 24 Hours: Intake & Output 06/18/17 06/18/17 06/18/17 06:59 14:59 22:59 Intake Total 775 240 Output Total 900 Balance -125 240 Lab Results Last 24 Hours: Laboratory Results - last 24 hr 06/18/17 Range/Units 07:15 Uric Acid 10.5 H (2.6-7.2) mg/dL Theophylline 12 (10-20) ug/dL [place] Results Last 24 Hours: Microbiology 06/17/17 15:09 Urine Culture - Preliminary Urine, Catheterized Gram Negative Rods Med Orders - Current: Current Medications Acetaminophen (Tylenol Extra Strength) 500 mg PO Q4H PRN PRN Reason: Pain Last Admin: 06/17/17 23:20 Dose: 500 mg Al Hydroxide/Mg Hydroxide (Mag-Al Plus) 30 ml PO DAILY PRN PRN Reason: gi upset Albuterol/Ipratropium (Duoneb 3.0-0.5 Mg/3 Ml) 3 ml NEB Q4H PRN PRN Reason: Dyspnea Allopurinol (Zyloprim) 100 mg PO DAILY [facility] Last Admin: 06/18/17 08:20 Dose: 100 mg Bisacodyl (Dulcolax) 5 mg PO DAILY PRN PRN Reason: Constipation Cholecalciferol (Vitamin D3) 2,000 units PO Q48H [facility] Last Admin: 06/17/17 09:09 Dose: 2,000 units Fluconazole (Diflucan) 50 mg PO DAILY [facility] Last Admin: 06/18/17 10:27 Dose: 50 mg Fluticasone Propionate (Flonase) 0 gm NASBOTH BID [facility] Last Admin: 06/18/17 08:19 Dose: 1 spray Ceftriaxone Sodium 1 gm/ (Sodium Chloride) 100 mls @ 200 mls/hr IV Q24H [facility] Last Admin: 06/18/17 15:11 Dose: 200 mls/hr Latanoprost (Xalatan 0.005% Ophth Soln) 0 ml EYEBOTH BEDTIME [facility] Last Admin: 06/17/17 19:50 Dose: 1 drop Metoprolol Tartrate (Lopressor) 25 mg PO Q12HR [facility] Last Admin: 06/18/17 08:25 Dose: 25 mg Morphine Sulfate (Morphine) 1 mg IVPUSH Q1H PRN PRN Reason: Pain Last Admin: 06/18/17 11:21 Dose: 1 mg Nitroglycerin (Nitrostat) 0.4 mg SL Q5M PRN PRN Reason: Chest Pain Theophylline [Isai- (24] 100 Mg) 200 mg PO DAILY [facility] Last Admin: 06/18/17 08:21 Dose: 200 mg Omeprazole (Omeprazole) 40 mg PO ACBREAKFAST [facility] Last Admin: 06/18/17 08:18 Dose: 40 mg Ondansetron HCl (Zofran) 4 mg IVPUSH Q4H PRN PRN Reason: Nausea Last Admin: 06/18/17 11:21 Dose: 4 mg Prednisone (Prednisone) 5 mg PO DAILY [facility] Sodium Chloride (Saline Flush) 10 ml FLUSH ASDIRECTED PRN PRN Reason: Keep Vein Open Last Admin: 06/18/17 15:11 Dose: 10 ml Sodium Chloride (Saline Flush) 10 ml FLUSH Q12HR [facility] Temazepam (Restoril) 15 mg PO BEDTIME PRN PRN Reason: Insomnia Last Admin: 06/17/17 23:20 Dose: 15 mg Timolol Maleate (Timoptic 0.5% Ophth Soln) 0 ml EYEBOTH DAILY [facility] Last Admin: 06/18/17 08:22 Dose: 1 drop Discontinued Medications Apixaban (Eliquis) 2.5 mg PO BID [facility] Last Admin: 06/18/17 08:19 Dose: 2.5 mg Calcium Carbonate (Oystcal-D 625 Mg-125 Units) 1 tab PO DAILY [facility] Last Admin: 06/17/17 09:04 Dose: 1 tab Furosemide (Lasix) 40 mg PO DAILY [facility] Last Admin: 06/17/17 08:57 Dose: 40 mg Sodium Chloride (Normal Saline) 500 mls @ 75 mls/hr IV ONETIME ONE Stop: 06/17/17 00:02 Last Admin: 06/16/17 18:10 Dose: 75 mls/hr Isosorbide Mononitrate (Imdur) 15 mg PO BEDTIME [facility] Last Admin: 06/16/17 20:47 Dose: 15 mg Potassium Chloride (Klor-Con 10) 10 meq PO DAILY [facility] Last Admin: 06/17/17 08:57 Dose: 10 meq Prednisone (Prednisone) 10 mg PO BID [facility] Last Admin: 06/17/17 09:05 Dose: 10 mg Prednisone (Prednisone) 10 mg PO DAILY [facility] Last Admin: 06/18/17 08:21 Dose: 10 mg Theophylline (Theophylline Anhydrous) 200 mg PO DAILY@1200 [facility] - Exam General: Alert, Cooperative HEENT: Mucous Membr. Moist/[place] Neck: Trachea Midline, No JVD Lungs: Normal Respiratory Effort, Decreased Breath Sounds Cardiovascular: Regular Rate, Regular Rhythm GI/Abdominal Exam: Normal Bowel Sounds, Soft, Non-Tender, No Distention (Female) Exam: Deferred Back Exam: Normal Inspection Extremities: Normal Inspection, No Pedal Edema Skin: Rash (petichiae) Neurological: No New Focal Deficit Psy/Mental Status: Alert, Normal Affect, Normal Mood - Problem List & Annotations (1) UTI (urinary tract infection) SNOMED Code(s): 30099451 Code(s): N39.0 - URINARY TRACT INFECTION, SITE NOT SPECIFIED Status: Acute Priority: High Current Visit: Yes Onset Date: ~06/14/17 Qualifiers: Urinary tract infection type: site unspecified Hematuria presence: without hematuria Qualified Code(s): N39.0 - Urinary tract infection, site not specified Annotation/Comment:: Increased weakness, tachycardia, elevated Lactic Acid, and WBC. Patient does not complain of UTI symptoms however had + dip and culture performed at clinic. Will treat with IV Rocephin and observe for further changes and patient response to treatment plan (2) COPD (chronic obstructive pulmonary disease) SNOMED Code(s): 07916763 Code(s): J44.9 - CHRONIC OBSTRUCTIVE PULMONARY DISEASE, UNSPECIFIED Status : Chronic Priority: Medium Current Visit: Yes (3) Pulmonary fibrosis SNOMED Code(s): 71159483 Code(s): J84.10 - PULMONARY FIBROSIS, UNSPECIFIED Status: Chronic Priority: Medium Current Visit: Yes (4) Hypertension SNOMED Code(s): 80639079 Code(s): I10 - ESSENTIAL (PRIMARY) HYPERTENSION Status: Chronic Priority : Low Current Visit: No Qualifiers: Hypertension type: essential hypertension Qualified Code(s): I10 - Essential (primary) hypertension Annotation/Comment:: Chronic. Blood pressure somewhat low in the emergency room. Will continue to observe and hold medications for HTN as needed. (5) Organic brain syndrome SNOMED Code(s): 904427842 Code(s): F09 - UNSP MENTAL DISORDER DUE TO KNOWN PHYSIOLOGICAL CONDITION Status: Chronic Priority: Medium Current Visit: No Annotation/Comment:: Stable by history (6) Palliative care patient SNOMED Code(s): 733131073 Code(s): Z51.5 - ENCOUNTER FOR PALLIATIVE CARE Status: Chronic Priority: Medium Current Visit: No Annotation/Comment:: As above (7) Peptic reflux disease SNOMED Code(s): 40784818 Code(s): K21.9 - GASTRO-ESOPHAGEAL REFLUX DISEASE WITHOUT ESOPHAGITIS Status: Chronic Priority: Low Current Visit: No Annotation/Comment:: No abdominal complaints. (8) Renal insufficiency SNOMED Code(s): 135619861 Code(s): N28.9 - DISORDER OF KIDNEY AND URETER, UNSPECIFIED Status: Chronic Priority: Medium Current Visit: No Annotation/Comment:: Continue to observe her renal status. (9) Rheumatoid arthritis SNOMED Code(s): 42809879 Code(s): M06.9 - RHEUMATOID ARTHRITIS, UNSPECIFIED Status: Chronic Priority: Low Current Visit: No Qualifiers: Rheumatoid arthritis location: multiple sites Rheumatoid factor presence: unspecified presence Qualified Code(s): M06.9 - Rheumatoid arthritis, unspecified Annotation/Comment:: Stable by history with current Plaquenil - Problem List Review Problem List Initiated/Reviewed/Updated: Yes - My Orders Last 24 Hours: My Active Orders 06/18/17 10:15 Fluconazole [Diflucan] 50 mg PO DAILY 06/18/17 10:34 Heat Therapy [OM.PC] Routine 06/18/17 11:00 Ondansetron [Zofran] 4 mg IVPUSH Q4H PRN 06/18/17 11:11 Morphine 1 mg IVPUSH Q1H PRN 06/18/17 14:23 Discontinue Telemetry Monitoring [Cardiac Monitoring Discontinue] [RC] Click to Edit 06/18/17 20:00 Sodium Chloride 0.9% [Saline Flush] 10 ml FLUSH Q12HR 06/19/17 05:11 CBC WITH AUTO DIFF [HEME] DAILY CMP [COMPREHENSIVE METABOLIC PN,CMP] [CHEM] DAILY CRP [C-REACTIVE PROTEIN] [CHEM] DAILY INR,PT,PROTHROMBIN TIME [COAG] Routine PTT,PARTIAL THROMBOPLSTIN TIME [COAG] Routine 06/19/17 08:00 predniSONE 5 mg PO DAILY 06/20/17 05:11 CBC WITH AUTO DIFF [HEME] DAILY CMP [COMPREHENSIVE METABOLIC PN,CMP] [CHEM] DAILY CRP [C-REACTIVE PROTEIN] [CHEM] DAILY - Plan Plan:: 06/17/17 Eva Dent MD Still weak and some confusion. Diarrhea improved. 06/18/17 Eva Dent MD Not feeling well today. Had a chill episode after her shower. Then emesis and loose bm. Fatiqued. Not short of breath. Continue medical therapy. Also discussed with family members including daughter and son her medical condition, goals of treatment, with possible hospice consultation if her clinical condition does not start to improve.
[2017-06-18] MEDS: Latanoprost 0.005% Ophth Soln 2.5 ML Bottle EYEBOTH SCH (20:11)
[2017-06-18] MEDS: Sodium Chloride 0.9% 10 ML Syringe FLUSH SCH (20:12)
[2017-06-19] MEDS: Omeprazole 20 MG Cap.CR PO SCH (07:59)
[2017-06-19] MEDS: Allopurinol 100 MG Tab PO SCH (08:00)
[2017-06-19] MEDS: Fluconazole 100 MG Tab PO SCH (08:00)
[2017-06-19] MEDS: predniSONE 5 MG Tab PO SCH (08:00)
[2017-06-19] MEDS: THEOPHYLLINE 100 MG PO SCH (08:01)
[2017-06-19] MEDS: Fluticasone Propionate Nasal Spray 16 GM Bottle NASBOTH SCH ×2 (08:03→17:31)
[2017-06-19] MEDS: Sodium Chloride 0.9% 10 ML Syringe FLUSH SCH ×2 (08:03→19:41)
[2017-06-19] MEDS: Timolol Maleate 0.5% Ophth Soln 5 ML Bottle EYEBOTH SCH (08:03)
[2017-06-19] MEDS: Metoprolol Tartrate 25 MG Tab PO SCH (08:04)
[2017-06-19] MEDS: Cholecalciferol (Vitamin D3) 1,000 Unit Tab PO SCH (08:07)
[2017-06-19] MEDS: Ondansetron 4 MG/2 ML SDV IVPUSH PRN (10:56)
[2017-06-19] MEDS: Morphine 2 MG/ML Syringe IVPUSH PRN (10:59)
[2017-06-19] MEDS: cefTRIAXone 1 GM in Sodium Chloride 0.9% 100 ML IV SCH (15:38)
[2017-06-19] MEDS: Sodium Chloride 0.9% 10 ML Syringe FLUSH PRN (15:39)
[2017-06-19] MEDS ORDERED: Digoxin 250 MCG Tab PO ONE (18:00)
[2017-06-19] MEDS: Latanoprost 0.005% Ophth Soln 2.5 ML Bottle EYEBOTH SCH (19:41)
--- NOTE | 2017-06-19 21:23 | PCM.PN ---
- General Info Date of Service: 06/19/17 Functional Status: Reports: Other (still having episodes of nausea and pain relieved by zofran and morphine) - Review of Systems General: Reports: Weakness, Appetite (decreased) HEENT: Reports: No Symptoms Pulmonary: Reports: No Symptoms Cardiovascular: Reports: No Symptoms Gastrointestinal: Reports: Abdominal Pain (improved), Decreased Appetite, Diarrhea (improved) Genitourinary: Reports: No Symptoms Musculoskeletal: Reports: Other (generalized pain off and on) Skin: Reports: Bruising Neurological: Reports: Weakness Psychiatric: Reports: No Symptoms - Patient Data Vitals - Most Recent: Last Vital Signs Temp 97.3 F 06/19/17 15:00 Pulse 116 H 06/19/17 17:32 Resp 16 06/19/17 15:00 BP 92/77 06/19/17 15:00 Pulse Ox 100 06/19/17 15:00 Weight - Most Recent: 116 lb 6.395 oz I&O - Last 24 Hours: Intake & Output 06/19/17 06/19/17 06/19/17 06:59 14:59 22:59 Intake Total 150 120 Output Total 200 Balance -50 120 Lab Results Last 24 Hours: Laboratory Results - last 24 hr 06/19/17 06/19/17 06/19/17 Range/Units 05:11 06:48 06:48 WBC 13.9 H (4.0-10.2) K/uL RBC 4.20 (3.77-5.09) M/uL Hgb 13.9 D (11.7-15.5) g/dL Hct 41.5 (34.0-46.0) % MCV 98.8 H (84.0-98.0) fL MCH 33.1 (28.2-33.3) pg MCHC 33.5 (31.7-36.0) g/dL RDW 16.3 H (11.2-14.1) % Plt Count 145 L (150-350) K/uL Neut % (Auto) 80.3 H (45.0-80.0) % Lymph % (Auto) 8.1 L (10.0-50.0) % [place] % (Auto) 9.2 (2.0-14.0) % Eos % (Auto) 2.0 (0.0-5.0) % Baso % (Auto) 0.4 (0.0-2.0) % Neut # (Auto) 11.16 H (1.40-7.00) K/uL Lymph # (Auto) 1.13 (0.50-3.50) K/uL [place] # (Auto) 1.28 H (0.00-1.00) K/uL Eos # (Auto) 0.28 (0.00-0.50) K/uL Baso # (Auto) 0.05 (0.00-0.20) K/uL PT 13.8 H (9.8-11.7) SEC INR 1.3 APTT 31.4 H (22.1-29.8) SEC Sodium 128 L (136-145) mmol/L Potassium 4.6 (3.5-5.1) mmol/L Chloride 96 L (98-107) mmol/L Carbon Dioxide 16.0 L (21.0-32.0) mmol/L BUN 60 H (7-18) mg/dL Creatinine 1.73 H (0.51-1.17) mg/dL Est Cr Clr Drug Dosing 21.62 mL/min Estimated GFR (MDRD) 28 mL/min Glucose 81 (74-106) mg/dL Calcium 9.3 (8.5-10.1) mg/dL Total Bilirubin 0.7 (0.2-1.0) mg/dL AST 34 (15-37) U/L ALT 35 (12-78) U/L Alkaline Phosphatase 79 (46-116) IU/L C-Reactive Protein 3.0 H (<=0.9) mg/dL Total Protein 6.3 L (6.4-8.2) g/dL Albumin 3.0 L (3.4-5.0) g/dL [place] Results Last 24 Hours: Microbiology 06/17/17 15:09 Urine Culture - Final Urine, Catheterized Escherichia Coli Med Orders - Current: Current Medications Acetaminophen (Tylenol Extra Strength) 500 mg PO Q4H PRN PRN Reason: Pain Last Admin: 06/17/17 23:20 Dose: 500 mg Al Hydroxide/Mg Hydroxide (Mag-Al Plus) 30 ml PO DAILY PRN PRN Reason: gi upset Albuterol/Ipratropium (Duoneb 3.0-0.5 Mg/3 Ml) 3 ml NEB Q4H PRN PRN Reason: Dyspnea Allopurinol (Zyloprim) 100 mg PO DAILY [facility] Last Admin: 06/19/17 08:00 Dose: 100 mg Bisacodyl (Dulcolax) 5 mg PO DAILY PRN PRN Reason: Constipation Cholecalciferol (Vitamin D3) 2,000 units PO Q48H [facility] Last Admin: 06/19/17 08:07 Dose: 2,000 units Fluconazole (Diflucan) 50 mg PO DAILY [facility] Last Admin: 06/19/17 08:00 Dose: 50 mg Fluticasone Propionate (Flonase) 0 gm NASBOTH BID [facility] Last Admin: 06/19/17 17:31 Dose: 1 spray Ceftriaxone Sodium 1 gm/ (Sodium Chloride) 100 mls @ 200 mls/hr IV Q24H [facility] Last Admin: 06/19/17 15:38 Dose: 200 mls/hr Latanoprost (Xalatan 0.005% Ophth Soln) 0 ml EYEBOTH BEDTIME [facility] Last Admin: 06/19/17 19:41 Dose: 1 drop Morphine Sulfate (Morphine) 1 mg IVPUSH Q1H PRN PRN Reason: Pain Last Admin: 06/19/17 10:59 Dose: 1 mg Nitroglycerin (Nitrostat) 0.4 mg SL Q5M PRN PRN Reason: Chest Pain Theophylline [Isai- (24] 100 Mg) 200 mg PO DAILY [facility] Last Admin: 06/19/17 08:01 Dose: 200 mg Omeprazole (Omeprazole) 40 mg PO ACBREAKFAST [facility] Last Admin: 06/19/17 07:59 Dose: 40 mg Ondansetron HCl (Zofran) 4 mg IVPUSH Q4H PRN PRN Reason: Nausea Last Admin: 06/19/17 10:56 Dose: 4 mg Prednisone (Prednisone) 5 mg PO DAILY [facility] Last Admin: 06/19/17 08:00 Dose: 5 mg Sodium Chloride (Saline Flush) 10 ml FLUSH ASDIRECTED PRN PRN Reason: Keep Vein Open Last Admin: 06/19/17 15:39 Dose: 10 ml Sodium Chloride (Saline Flush) 10 ml FLUSH Q12HR [facility] Last Admin: 06/19/17 19:41 Dose: 10 ml Temazepam (Restoril) 15 mg PO BEDTIME PRN PRN Reason: Insomnia Last Admin: 06/17/17 23:20 Dose: 15 mg Timolol Maleate (Timoptic 0.5% Ophth Soln) 0 ml EYEBOTH DAILY [facility] Last Admin: 06/19/17 08:03 Dose: 1 drop Discontinued Medications Apixaban (Eliquis) 2.5 mg PO BID [facility] Last Admin: 06/18/17 08:19 Dose: 2.5 mg Calcium Carbonate (Oystcal-D 625 Mg-125 Units) 1 tab PO DAILY [facility] Last Admin: 06/17/17 09:04 Dose: 1 tab Digoxin (Lanoxin) 250 mcg PO ONETIME ONE Stop: 06/19/17 18:01 Last Admin: 06/19/17 17:32 Dose: 250 mcg Furosemide (Lasix) 40 mg PO DAILY [facility] Last Admin: 06/17/17 08:57 Dose: 40 mg Sodium Chloride (Normal Saline) 500 mls @ 75 mls/hr IV ONETIME ONE Stop: 06/17/17 00:02 Last Admin: 06/16/17 18:10 Dose: 75 mls/hr Isosorbide Mononitrate (Imdur) 15 mg PO BEDTIME [facility] Last Admin: 06/16/17 20:47 Dose: 15 mg Metoprolol Tartrate (Lopressor) 25 mg PO Q12HR [facility] Last Admin: 06/19/17 08:04 Dose: Not Given Potassium Chloride (Klor-Con 10) 10 meq PO DAILY [facility] Last Admin: 06/17/17 08:57 Dose: 10 meq Prednisone (Prednisone) 10 mg PO BID [facility] Last Admin: 06/17/17 09:05 Dose: 10 mg Prednisone (Prednisone) 10 mg PO DAILY [facility] Last Admin: 06/18/17 08:21 Dose: 10 mg Theophylline (Theophylline Anhydrous) 200 mg PO DAILY@1200 [facility] - Exam Quality Assessment: Supplemental Oxygen General: Alert, Cooperative HEENT: Mucous Membr. Moist/[place] Neck: Trachea Midline, No JVD Lungs: Normal Respiratory Effort, Decreased Breath Sounds Cardiovascular: Irregular Rhythm GI/Abdominal Exam: Soft, Non-Tender, No Distention (Female) Exam: Deferred Back Exam: Normal Inspection Extremities: Normal Inspection, Non-Tender Skin: Warm, Dry, Intact Neurological: No New Focal Deficit Psy/Mental Status: Alert, Normal Affect, Normal Mood - Problem List & Annotations (1) UTI (urinary tract infection) SNOMED Code(s): 41057800 Code(s): N39.0 - URINARY TRACT INFECTION, SITE NOT SPECIFIED Status: Acute Priority: High Current Visit: Yes Onset Date: ~06/14/17 Qualifiers: Urinary tract infection type: site unspecified Hematuria presence: without hematuria Qualified Code(s): N39.0 - Urinary tract infection, site not specified Annotation/Comment:: Increased weakness, tachycardia, elevated Lactic Acid, and WBC. Patient does not complain of UTI symptoms however had + dip and culture performed at clinic. Will treat with IV Rocephin and observe for further changes and patient response to treatment plan (2) COPD (chronic obstructive pulmonary disease) SNOMED Code(s): 81940179 Code(s): J44.9 - CHRONIC OBSTRUCTIVE PULMONARY DISEASE, UNSPECIFIED Status : Chronic Priority: Medium Current Visit: Yes (3) Pulmonary fibrosis SNOMED Code(s): 26863767 Code(s): J84.10 - PULMONARY FIBROSIS, UNSPECIFIED Status: Chronic Priority: Medium Current Visit: Yes (4) Hypertension SNOMED Code(s): 57861063 Code(s): I10 - ESSENTIAL (PRIMARY) HYPERTENSION Status: Chronic Priority : Low Current Visit: No Qualifiers: Hypertension type: essential hypertension Qualified Code(s): I10 - Essential (primary) hypertension Annotation/Comment:: Chronic. Blood pressure somewhat low in the emergency room. Will continue to observe and hold medications for HTN as needed. (5) Organic brain syndrome SNOMED Code(s): 909276349 Code(s): F09 - UNSP MENTAL DISORDER DUE TO KNOWN PHYSIOLOGICAL CONDITION Status: Chronic Priority: Medium Current Visit: No Annotation/Comment:: Stable by history (6) Palliative care patient SNOMED Code(s): 243813251 Code(s): Z51.5 - ENCOUNTER FOR PALLIATIVE CARE Status: Chronic Priority: Medium Current Visit: No Annotation/Comment:: As above (7) Peptic reflux disease SNOMED Code(s): 85743977 Code(s): K21.9 - GASTRO-ESOPHAGEAL REFLUX DISEASE WITHOUT ESOPHAGITIS Status: Chronic Priority: Low Current Visit: No Annotation/Comment:: No abdominal complaints. (8) Renal insufficiency SNOMED Code(s): 887578008 Code(s): N28.9 - DISORDER OF KIDNEY AND URETER, UNSPECIFIED Status: Chronic Priority: Medium Current Visit: No Annotation/Comment:: Continue to observe her renal status. (9) Rheumatoid arthritis SNOMED Code(s): 20119243 Code(s): M06.9 - RHEUMATOID ARTHRITIS, UNSPECIFIED Status: Chronic Priority: Low Current Visit: No Qualifiers: Rheumatoid arthritis location: multiple sites Rheumatoid factor presence: unspecified presence Qualified Code(s): M06.9 - Rheumatoid arthritis, unspecified Annotation/Comment:: Stable by history with current Plaquenil - Problem List Review Problem List Initiated/Reviewed/Updated: Yes - My Orders Last 24 Hours: My Active Orders 06/19/17 08:00 predniSONE 5 mg PO DAILY 06/20/17 05:11 CBC WITH AUTO DIFF [HEME] DAILY CMP [COMPREHENSIVE METABOLIC PN,CMP] [CHEM] DAILY CRP [C-REACTIVE PROTEIN] [CHEM] DAILY DIGOXIN [CHEM] Routine LACTIC ACID [CHEM] Routine TROPONIN I [CHEM] Routine - Plan Plan:: 06/17/17 Eva Dent MD Still weak and some confusion. Diarrhea improved. 06/18/17 Eva Dent MD Not feeling well today. Had a chill episode after her shower. Then emesis and loose bm. Fatiqued. Not short of breath. Continue medical therapy. Also discussed with family members including daughter and son her medical condition, goals of treatment, with possible hospice consultation if her clinical condition does not start to improve. 06/19/17 Eva Dent MD Maybe feeling a little bit better today. Does improve with IV morphine and IV zofran. Hypotensive. C&S urine E-coli sensitive to ceftriaxone. Still very weak. Family still deciding on goals of treatment and further medical options.
[2017-06-20] MEDS: Fluconazole 100 MG Tab PO SCH (08:10)
[2017-06-20] MEDS: Omeprazole 20 MG Cap.CR PO SCH (08:11)
[2017-06-20] MEDS: Allopurinol 100 MG Tab PO SCH (08:12)
[2017-06-20] MEDS: THEOPHYLLINE 100 MG PO SCH (08:12)
[2017-06-20] MEDS: predniSONE 5 MG Tab PO SCH (08:12)
[2017-06-20] MEDS: Timolol Maleate 0.5% Ophth Soln 5 ML Bottle EYEBOTH SCH (08:13)
[2017-06-20] MEDS: Sodium Chloride 0.9% 10 ML Syringe FLUSH SCH ×2 (08:13→19:08)
[2017-06-20] MEDS: Fluticasone Propionate Nasal Spray 16 GM Bottle NASBOTH SCH ×2 (08:13→19:08)
[2017-06-20] MEDS: Sodium Chloride 0.9% 10 ML Syringe FLUSH PRN (15:43)
[2017-06-20] MEDS: cefTRIAXone 1 GM in Sodium Chloride 0.9% 100 ML IV SCH (15:43)
[2017-06-20] MEDS: Latanoprost 0.005% Ophth Soln 2.5 ML Bottle EYEBOTH SCH (19:07)
--- NOTE | 2017-06-20 21:50 | PCM.PN ---
- General Info Date of Service: 06/20/17 Functional Status: Reports: Other (says yesterday she thought she would but today she feels a little better) - Review of Systems General: Reports: Weakness HEENT: Reports: No Symptoms Pulmonary: Reports: No Symptoms Cardiovascular: Reports: No Symptoms Gastrointestinal: Reports: No Symptoms Genitourinary: Reports: No Symptoms Musculoskeletal: Reports: No Symptoms Skin: Reports: No Symptoms Neurological: Reports: Weakness Psychiatric: Reports: No Symptoms - Patient Data Vitals - Most Recent: Last Vital Signs Temp 97.4 F 06/20/17 20:00 Pulse 60 06/20/17 20:00 Resp 20 06/20/17 20:00 BP 106/76 06/20/17 20:00 Pulse Ox 99 06/20/17 20:00 Weight - Most Recent: 116 lb 6.395 oz I&O - Last 24 Hours: Intake & Output 06/20/17 06/20/17 06/20/17 06:59 14:59 22:59 Intake Total 50 720 300 Output Total 200 200 Balance -150 720 100 Lab Results Last 24 Hours: Laboratory Results - last 24 hr 06/20/17 06/20/17 06/20/17 Range/Units 07:58 07:58 07:58 WBC 13.6 H (4.0-10.2) K/uL RBC 4.09 (3.77-5.09) M/uL Hgb 13.5 (11.7-15.5) g/dL Hct 40.1 (34.0-46.0) % MCV 98.0 (84.0-98.0) fL MCH 33.0 (28.2-33.3) pg MCHC 33.7 (31.7-36.0) g/dL RDW 16.1 H (11.2-14.1) % Plt Count 150 (150-350) K/uL Neut % (Auto) 80.9 H (45.0-80.0) % Lymph % (Auto) 8.0 L (10.0-50.0) % [place] % (Auto) 7.3 (2.0-14.0) % Eos % (Auto) 3.4 (0.0-5.0) % Baso % (Auto) 0.4 (0.0-2.0) % Neut # (Auto) 11.03 H (1.40-7.00) K/uL Lymph # (Auto) 1.09 (0.50-3.50) K/uL [place] # (Auto) 1.00 (0.00-1.00) K/uL Eos # (Auto) 0.46 (0.00-0.50) K/uL Baso # (Auto) 0.05 (0.00-0.20) K/uL Sodium 128 L (136-145) mmol/L Potassium 4.0 (3.5-5.1) mmol/L Chloride 96 L (98-107) mmol/L Carbon Dioxide 18.7 L (21.0-32.0) mmol/L BUN 65 H (7-18) mg/dL Creatinine 1.83 H (0.51-1.17) mg/dL Est Cr Clr Drug Dosing 20.44 mL/min Estimated GFR (MDRD) 27 mL/min Glucose 80 (74-106) mg/dL Lactic Acid 1.8 (0.4-2.0) mmol/L Calcium 9.1 (8.5-10.1) mg/dL Total Bilirubin 0.7 (0.2-1.0) mg/dL AST 25 (15-37) U/L ALT 31 (12-78) U/L Alkaline Phosphatase 78 (46-116) IU/L Troponin I 3.546 H* (0.000-0.056) ng/mL C-Reactive Protein 2.6 H (<=0.9) mg/dL Total Protein 5.9 L (6.4-8.2) g/dL Albumin 2.8 L (3.4-5.0) g/dL Digoxin 0.71 L (0.90-2.00) ng/mL Med Orders - Current: Current Medications Acetaminophen (Tylenol Extra Strength) 500 mg PO Q4H PRN PRN Reason: Pain Last Admin: 06/17/17 23:20 Dose: 500 mg Al Hydroxide/Mg Hydroxide (Mag-Al Plus) 30 ml PO DAILY PRN PRN Reason: gi upset Albuterol/Ipratropium (Duoneb 3.0-0.5 Mg/3 Ml) 3 ml NEB Q4H PRN PRN Reason: Dyspnea Allopurinol (Zyloprim) 100 mg PO DAILY [facility] Last Admin: 06/20/17 08:12 Dose: 100 mg Bisacodyl (Dulcolax) 5 mg PO DAILY PRN PRN Reason: Constipation Cholecalciferol (Vitamin D3) 2,000 units PO Q48H [facility] Last Admin: 06/19/17 08:07 Dose: 2,000 units Digoxin (Lanoxin) 125 mcg PO DAILY [facility] Fluconazole (Diflucan) 50 mg PO DAILY [facility] Last Admin: 06/20/17 08:10 Dose: 50 mg Fluticasone Propionate (Flonase) 0 gm NASBOTH BID [facility] Last Admin: 06/20/17 19:08 Dose: 1 spray Ceftriaxone Sodium 1 gm/ (Sodium Chloride) 100 mls @ 200 mls/hr IV Q24H [facility] Last Admin: 06/20/17 15:43 Dose: 200 mls/hr Latanoprost (Xalatan 0.005% Ophth Soln) 0 ml EYEBOTH BEDTIME [facility] Last Admin: 06/20/17 19:07 Dose: 1 drop Morphine Sulfate (Morphine) 1 mg IVPUSH Q1H PRN PRN Reason: Pain Last Admin: 06/19/17 10:59 Dose: 1 mg Nitroglycerin (Nitrostat) 0.4 mg SL Q5M PRN PRN Reason: Chest Pain Theophylline [Isai- (24] 100 Mg) 200 mg PO DAILY [facility] Last Admin: 06/20/17 08:12 Dose: 200 mg Omeprazole (Omeprazole) 40 mg PO ACBREAKFAST [facility] Last Admin: 06/20/17 08:11 Dose: 40 mg Ondansetron HCl (Zofran) 4 mg IVPUSH Q4H PRN PRN Reason: Nausea Last Admin: 06/19/17 10:56 Dose: 4 mg Prednisone (Prednisone) 5 mg PO DAILY [facility] Last Admin: 06/20/17 08:12 Dose: 5 mg Sodium Chloride (Saline Flush) 10 ml FLUSH ASDIRECTED PRN PRN Reason: Keep Vein Open Last Admin: 06/20/17 15:43 Dose: 10 ml Sodium Chloride (Saline Flush) 10 ml FLUSH Q12HR [facility] Last Admin: 06/20/17 19:08 Dose: 10 ml Temazepam (Restoril) 15 mg PO BEDTIME PRN PRN Reason: Insomnia Last Admin: 06/17/17 23:20 Dose: 15 mg Timolol Maleate (Timoptic 0.5% Ophth Soln) 0 ml EYEBOTH DAILY [facility] Last Admin: 06/20/17 08:13 Dose: 1 drop Discontinued Medications Apixaban (Eliquis) 2.5 mg PO BID [facility] Last Admin: 06/18/17 08:19 Dose: 2.5 mg Calcium Carbonate (Oystcal-D 625 Mg-125 Units) 1 tab PO DAILY [facility] Last Admin: 06/17/17 09:04 Dose: 1 tab Digoxin (Lanoxin) 250 mcg PO ONETIME ONE Stop: 06/19/17 18:01 Last Admin: 06/19/17 17:32 Dose: 250 mcg Furosemide (Lasix) 40 mg PO DAILY [facility] Last Admin: 06/17/17 08:57 Dose: 40 mg Sodium Chloride (Normal Saline) 500 mls @ 75 mls/hr IV ONETIME ONE Stop: 06/17/17 00:02 Last Admin: 06/16/17 18:10 Dose: 75 mls/hr Isosorbide Mononitrate (Imdur) 15 mg PO BEDTIME [facility] Last Admin: 06/16/17 20:47 Dose: 15 mg Metoprolol Tartrate (Lopressor) 25 mg PO Q12HR [facility] Last Admin: 06/19/17 08:04 Dose: Not Given Potassium Chloride (Klor-Con 10) 10 meq PO DAILY [facility] Last Admin: 06/17/17 08:57 Dose: 10 meq Prednisone (Prednisone) 10 mg PO BID [facility] Last Admin: 06/17/17 09:05 Dose: 10 mg Prednisone (Prednisone) 10 mg PO DAILY [facility] Last Admin: 06/18/17 08:21 Dose: 10 mg Theophylline (Theophylline Anhydrous) 200 mg PO DAILY@1200 [facility] - Exam General: Alert, Cooperative HEENT: Mucous Membr. Moist/[place] Neck: Trachea Midline, No JVD Lungs: Normal Respiratory Effort, Decreased Breath Sounds Cardiovascular: Irregular Rhythm GI/Abdominal Exam: Soft, Non-Tender, No Distention (Female) Exam: Deferred Back Exam: Other (kyphosis) Extremities: Non-Tender, No Pedal Edema Skin: Warm, Dry, Intact Neurological: No New Focal Deficit Psy/Mental Status: Alert, Normal Affect, Normal Mood - Problem List & Annotations (1) UTI (urinary tract infection) SNOMED Code(s): 66110113 Code(s): N39.0 - URINARY TRACT INFECTION, SITE NOT SPECIFIED Status: Acute Priority: High Current Visit: Yes Onset Date: ~06/14/17 Qualifiers: Urinary tract infection type: site unspecified Hematuria presence: without hematuria Qualified Code(s): N39.0 - Urinary tract infection, site not specified Annotation/Comment:: Increased weakness, tachycardia, elevated Lactic Acid, and WBC. Patient does not complain of UTI symptoms however had + dip and culture performed at clinic. Will treat with IV Rocephin and observe for further changes and patient response to treatment plan (2) COPD (chronic obstructive pulmonary disease) SNOMED Code(s): 02892258 Code(s): J44.9 - CHRONIC OBSTRUCTIVE PULMONARY DISEASE, UNSPECIFIED Status : Chronic Priority: Medium Current Visit: Yes (3) Pulmonary fibrosis SNOMED Code(s): 15794391 Code(s): J84.10 - PULMONARY FIBROSIS, UNSPECIFIED Status: Chronic Priority: Medium Current Visit: Yes (4) Hypertension SNOMED Code(s): 40845369 Code(s): I10 - ESSENTIAL (PRIMARY) HYPERTENSION Status: Chronic Priority : Low Current Visit: No Qualifiers: Hypertension type: essential hypertension Qualified Code(s): I10 - Essential (primary) hypertension Annotation/Comment:: Chronic. Blood pressure somewhat low in the emergency room. Will continue to observe and hold medications for HTN as needed. (5) Organic brain syndrome SNOMED Code(s): 331013811 Code(s): F09 - UNSP MENTAL DISORDER DUE TO KNOWN PHYSIOLOGICAL CONDITION Status: Chronic Priority: Medium Current Visit: No Annotation/Comment:: Stable by history (6) Palliative care patient SNOMED Code(s): 974871454 Code(s): Z51.5 - ENCOUNTER FOR PALLIATIVE CARE Status: Chronic Priority: Medium Current Visit: No Annotation/Comment:: As above (7) Peptic reflux disease SNOMED Code(s): 70900118 Code(s): K21.9 - GASTRO-ESOPHAGEAL REFLUX DISEASE WITHOUT ESOPHAGITIS Status: Chronic Priority: Low Current Visit: No Annotation/Comment:: No abdominal complaints. (8) Renal insufficiency SNOMED Code(s): 380043750 Code(s): N28.9 - DISORDER OF KIDNEY AND URETER, UNSPECIFIED Status: Chronic Priority: Medium Current Visit: No Annotation/Comment:: Continue to observe her renal status. (9) Rheumatoid arthritis SNOMED Code(s): 13540321 Code(s): M06.9 - RHEUMATOID ARTHRITIS, UNSPECIFIED Status: Chronic Priority: Low Current Visit: No Qualifiers: Rheumatoid arthritis location: multiple sites Rheumatoid factor presence: unspecified presence Qualified Code(s): M06.9 - Rheumatoid arthritis, unspecified Annotation/Comment:: Stable by history with current Plaquenil (10) Cardiomyopathy SNOMED Code(s): 82024719 Code(s): I42.9 - CARDIOMYOPATHY, UNSPECIFIED Status: Acute Priority: High Current Visit: Yes Qualifiers: Cardiomyopathy type: dilated Qualified Code(s): I42.0 - Dilated cardiomyopathy (11) Troponin level elevated SNOMED Code(s): 595784096, 513926396 Code(s): R79.89 - OTHER SPECIFIED ABNORMAL FINDINGS OF BLOOD CHEMISTRY Status: Chronic Priority: High Current Visit: Yes Annotation/Comment:: Chronically elevated. CKMB also chronically elevated. 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 Diarrhea improved. 06/18/17 Eva Dent MD Not feeling well today. Had a chill episode after her shower. Then emesis and loose bm. Fatiqued. Not short of breath. Continue medical therapy. Also discussed with family members including daughter and son her medical condition, goals of treatment, with possible hospice consultation if her clinical condition does not start to improve. 06/19/17 Eva Dent MD Maybe feeling a little bit better today. Does improve with IV morphine and IV zofran. Hypotensive. C&S urine E-coli sensitive to ceftriaxone. Still very weak. Family still deciding on goals of treatment and further medical options. 06/20/17 Eva Dent MD Feels a little bit better. No emesis, no diarrhea today. Troponin markedly elevated. Still weak. Renal function decreased. Family wants continued impatient treatment but also want comfort care. Continue IV ceftriaxone, IV zofran, IV morphine.
[2017-06-21] MEDS: Temazepam 15 MG Cap PO PRN (01:46)
[2017-06-21] MEDS: Omeprazole 20 MG Cap.CR PO SCH (07:52)
[2017-06-21] MEDS: Fluticasone Propionate Nasal Spray 16 GM Bottle NASBOTH SCH ×2 (07:53→17:55)
[2017-06-21] MEDS: Digoxin 125 MCG Tab PO SCH (07:53)
[2017-06-21] MEDS: Fluconazole 100 MG Tab PO SCH (07:53)
[2017-06-21] MEDS: Sodium Chloride 0.9% 10 ML Syringe FLUSH SCH ×2 (07:54→19:05)
[2017-06-21] MEDS: predniSONE 5 MG Tab PO SCH (07:54)
[2017-06-21] MEDS: Allopurinol 100 MG Tab PO SCH (07:55)
[2017-06-21] MEDS: Timolol Maleate 0.5% Ophth Soln 5 ML Bottle EYEBOTH SCH (07:55)
[2017-06-21] MEDS: Cholecalciferol (Vitamin D3) 1,000 Unit Tab PO SCH (08:47)
[2017-06-21] MEDS: THEOPHYLLINE 100 MG PO SCH (09:55)
[2017-06-21] MEDS: cefTRIAXone 1 GM in Sodium Chloride 0.9% 100 ML IV SCH (15:28)
[2017-06-21] MEDS: Sodium Chloride 0.9% 10 ML Syringe FLUSH PRN (15:28)
[2017-06-21] MEDS ORDERED: Sodium Chloride 0.9% 1,000 ML IV SCH (19:00)
--- NOTE | 2017-06-21 19:03 | PCM.PN ---
- General Info Date of Service: 06/21/17 Functional Status: Reports: Pain Controlled - Review of Systems General: Reports: Weakness HEENT: Reports: No Symptoms Pulmonary: Reports: No Symptoms Cardiovascular: Reports: No Symptoms Gastrointestinal: Reports: No Symptoms Genitourinary: Reports: No Symptoms Musculoskeletal: Reports: Leg Pain (left), Joint Pain (rheumatoid arthritis) Neurological: Reports: Weakness Psychiatric: Reports: No Symptoms - Patient Data Vitals - Most Recent: Last Vital Signs Temp 98.2 F 06/21/17 16:00 Pulse 135 H 06/21/17 16:00 Resp 16 06/21/17 16:00 BP 95/49 L 06/21/17 07:49 Pulse Ox 98 06/21/17 16:00 Weight - Most Recent: 116 lb 6.395 oz I&O - Last 24 Hours: Intake & Output 06/21/17 06/21/17 06/21/17 06:59 14:59 22:59 Intake Total 200 120 Output Total 500 Balance -300 120 Lab Results Last 24 Hours: Laboratory Results - last 24 hr 06/21/17 06/21/17 Range/Units 07:40 07:40 WBC 13.2 H (4.0-10.2) K/uL RBC 4.15 (3.77-5.09) M/uL Hgb 13.7 (11.7-15.5) g/dL Hct 40.5 (34.0-46.0) % MCV 97.6 (84.0-98.0) fL MCH 33.0 (28.2-33.3) pg MCHC 33.8 (31.7-36.0) g/dL RDW 15.8 H (11.2-14.1) % Plt Count 152 (150-350) K/uL Neut % (Auto) 79.9 (45.0-80.0) % Lymph % (Auto) 9.7 L (10.0-50.0) % [place] % (Auto) 5.7 (2.0-14.0) % Eos % (Auto) 4.2 (0.0-5.0) % Baso % (Auto) 0.5 (0.0-2.0) % Neut # (Auto) 10.52 H (1.40-7.00) K/uL Lymph # (Auto) 1.27 (0.50-3.50) K/uL [place] # (Auto) 0.75 (0.00-1.00) K/uL Eos # (Auto) 0.55 H (0.00-0.50) K/uL Baso # (Auto) 0.07 (0.00-0.20) K/uL Sodium 130 L (136-145) mmol/L Potassium 3.5 (3.5-5.1) mmol/L Chloride 99 (98-107) mmol/L Carbon Dioxide 21.6 (21.0-32.0) mmol/L BUN 55 H (7-18) mg/dL Creatinine 1.38 H (0.51-1.17) mg/dL Est Cr Clr Drug Dosing 27.10 mL/min Estimated GFR (MDRD) 37 mL/min Glucose 88 (74-106) mg/dL Uric Acid 10.4 H (2.6-7.2) mg/dL Calcium 9.0 (8.5-10.1) mg/dL Troponin I 3.932 H* (0.000-0.056) ng/mL C-Reactive Protein 2.3 H (<=0.9) mg/dL Med Orders - Current: Current Medications Acetaminophen (Tylenol Extra Strength) 500 mg PO Q4H PRN PRN Reason: Pain Last Admin: 06/17/17 23:20 Dose: 500 mg Al Hydroxide/Mg Hydroxide (Mag-Al Plus) 30 ml PO DAILY PRN PRN Reason: gi upset Albuterol/Ipratropium (Duoneb 3.0-0.5 Mg/3 Ml) 3 ml NEB Q4H PRN PRN Reason: Dyspnea Allopurinol (Zyloprim) 100 mg PO DAILY [facility] Last Admin: 06/21/17 07:55 Dose: 100 mg Bisacodyl (Dulcolax) 5 mg PO DAILY PRN PRN Reason: Constipation Cholecalciferol (Vitamin D3) 2,000 units PO Q48H [facility] Last Admin: 06/21/17 08:47 Dose: 2,000 units Digoxin (Lanoxin) 125 mcg PO DAILY [facility] Last Admin: 06/21/17 07:53 Dose: 125 mcg Fluconazole (Diflucan) 50 mg PO DAILY [facility] Last Admin: 06/21/17 07:53 Dose: 50 mg Fluticasone Propionate (Flonase) 0 gm NASBOTH BID [facility] Last Admin: 06/21/17 17:55 Dose: 1 spray Ceftriaxone Sodium 1 gm/ (Sodium Chloride) 100 mls @ 200 mls/hr IV Q24H [facility] Last Admin: 06/21/17 15:28 Dose: 200 mls/hr Sodium Chloride (Normal Saline) 1,000 mls @ 50 mls/hr IV ASDIRECTED [facility] Stop: 06/22/17 14:59 Latanoprost (Xalatan 0.005% Ophth Soln) 0 ml EYEBOTH BEDTIME [facility] Last Admin: 06/20/17 19:07 Dose: 1 drop Morphine Sulfate (Morphine) 1 mg IVPUSH Q1H PRN PRN Reason: Pain Last Admin: 06/19/17 10:59 Dose: 1 mg Nitroglycerin (Nitrostat) 0.4 mg SL Q5M PRN PRN Reason: Chest Pain Theophylline [Isai- (24] 100 Mg) 200 mg PO DAILY [facility] Last Admin: 06/21/17 09:55 Dose: 200 mg Omeprazole (Omeprazole) 40 mg PO ACBREAKFAST [facility] Last Admin: 06/21/17 07:52 Dose: 40 mg Ondansetron HCl (Zofran) 4 mg IVPUSH Q4H PRN PRN Reason: Nausea Last Admin: 06/19/17 10:56 Dose: 4 mg Prednisone (Prednisone) 5 mg PO DAILY [facility] Last Admin: 06/21/17 07:54 Dose: 5 mg Sodium Chloride (Saline Flush) 10 ml FLUSH ASDIRECTED PRN PRN Reason: Keep Vein Open Last Admin: 06/21/17 15:28 Dose: 10 ml Sodium Chloride (Saline Flush) 10 ml FLUSH Q12HR [facility] Last Admin: 06/21/17 07:54 Dose: 10 ml Temazepam (Restoril) 15 mg PO BEDTIME PRN PRN Reason: Insomnia Last Admin: 06/21/17 01:46 Dose: 15 mg Timolol Maleate (Timoptic 0.5% Ophth Soln) 0 ml EYEBOTH DAILY [facility] Last Admin: 06/21/17 07:55 Dose: 1 drop Discontinued Medications Apixaban (Eliquis) 2.5 mg PO BID [facility] Last Admin: 06/18/17 08:19 Dose: 2.5 mg Calcium Carbonate (Oystcal-D 625 Mg-125 Units) 1 tab PO DAILY [facility] Last Admin: 06/17/17 09:04 Dose: 1 tab Digoxin (Lanoxin) 250 mcg PO ONETIME ONE Stop: 06/19/17 18:01 Last Admin: 06/19/17 17:32 Dose: 250 mcg Furosemide (Lasix) 40 mg PO DAILY [facility] Last Admin: 06/17/17 08:57 Dose: 40 mg Sodium Chloride (Normal Saline) 500 mls @ 75 mls/hr IV ONETIME ONE Stop: 06/17/17 00:02 Last Admin: 06/16/17 18:10 Dose: 75 mls/hr Isosorbide Mononitrate (Imdur) 15 mg PO BEDTIME [facility] Last Admin: 06/16/17 20:47 Dose: 15 mg Metoprolol Tartrate (Lopressor) 25 mg PO Q12HR [facility] Last Admin: 06/19/17 08:04 Dose: Not Given Potassium Chloride (Klor-Con 10) 10 meq PO DAILY [facility] Last Admin: 06/17/17 08:57 Dose: 10 meq Prednisone (Prednisone) 10 mg PO BID [facility] Last Admin: 06/17/17 09:05 Dose: 10 mg Prednisone (Prednisone) 10 mg PO DAILY [facility] Last Admin: 06/18/17 08:21 Dose: 10 mg Theophylline (Theophylline Anhydrous) 200 mg PO DAILY@1200 [facility] - Exam General: Alert, Cooperative, No Acute Distress HEENT: Mucous Membr. Moist/[place] Neck: Trachea Midline, No JVD Lungs: Normal Respiratory Effort, Decreased Breath Sounds Cardiovascular: Irregular Rhythm, Tachycardia GI/Abdominal Exam: Soft, Non-Tender, No Distention (Female) Exam: Deferred Back Exam: Other (kyphosis) Extremities: Normal Inspection, Non-Tender, Pedal Edema (very minimal) Skin: Warm, Dry, Intact Neurological: No New Focal Deficit Psy/Mental Status: Alert, Normal Affect, Normal Mood - Problem List & Annotations (1) UTI (urinary tract infection) SNOMED Code(s): 87801215 Code(s): N39.0 - URINARY TRACT INFECTION, SITE NOT SPECIFIED Status: Acute Priority: High Current Visit: Yes Onset Date: ~06/14/17 Qualifiers: Urinary tract infection type: site unspecified Hematuria presence: without hematuria Qualified Code(s): N39.0 - Urinary tract infection, site not specified Annotation/Comment:: Increased weakness, tachycardia, elevated Lactic Acid, and WBC. Patient does not complain of UTI symptoms however had + dip and culture performed at clinic. Will treat with IV Rocephin and observe for further changes and patient response to treatment plan (2) COPD (chronic obstructive pulmonary disease) SNOMED Code(s): 36878773 Code(s): J44.9 - CHRONIC OBSTRUCTIVE PULMONARY DISEASE, UNSPECIFIED Status : Chronic Priority: Medium Current Visit: Yes (3) Pulmonary fibrosis SNOMED Code(s): 52165714 Code(s): J84.10 - PULMONARY FIBROSIS, UNSPECIFIED Status: Chronic Priority: Medium Current Visit: Yes (4) Hypertension SNOMED Code(s): 89748859 Code(s): I10 - ESSENTIAL (PRIMARY) HYPERTENSION Status: Chronic Priority : Low Current Visit: No Qualifiers: Hypertension type: essential hypertension Qualified Code(s): I10 - Essential (primary) hypertension Annotation/Comment:: Chronic. Blood pressure somewhat low in the emergency room. Will continue to observe and hold medications for HTN as needed. (5) Organic brain syndrome SNOMED Code(s): 310692370 Code(s): F09 - UNSP MENTAL DISORDER DUE TO KNOWN PHYSIOLOGICAL CONDITION Status: Chronic Priority: Medium Current Visit: No Annotation/Comment:: Stable by history (6) Palliative care patient SNOMED Code(s): 887944502 Code(s): Z51.5 - ENCOUNTER FOR PALLIATIVE CARE Status: Chronic Priority: Medium Current Visit: No Annotation/Comment:: As above (7) Peptic reflux disease SNOMED Code(s): 99797872 Code(s): K21.9 - GASTRO-ESOPHAGEAL REFLUX DISEASE WITHOUT ESOPHAGITIS Status: Chronic Priority: Low Current Visit: No Annotation/Comment:: No abdominal complaints. (8) Renal insufficiency SNOMED Code(s): 025865639 Code(s): N28.9 - DISORDER OF KIDNEY AND URETER, UNSPECIFIED Status: Chronic Priority: Medium Current Visit: No Annotation/Comment:: Continue to observe her renal status. (9) Rheumatoid arthritis SNOMED Code(s): 48059776 Code(s): M06.9 - RHEUMATOID ARTHRITIS, UNSPECIFIED Status: Chronic Priority: Low Current Visit: No Qualifiers: Rheumatoid arthritis location: multiple sites Rheumatoid factor presence: unspecified presence Qualified Code(s): M06.9 - Rheumatoid arthritis, unspecified Annotation/Comment:: Stable by history with current Plaquenil (10) Cardiomyopathy SNOMED Code(s): 92139067 Code(s): I42.9 - CARDIOMYOPATHY, UNSPECIFIED Status: Acute Priority: High Current Visit: Yes Qualifiers: Cardiomyopathy type: dilated Qualified Code(s): I42.0 - Dilated cardiomyopathy (11) Troponin level elevated SNOMED Code(s): 950885581, 905334636 Code(s): R79.89 - OTHER SPECIFIED ABNORMAL FINDINGS OF BLOOD CHEMISTRY Status: Chronic Priority: High Current Visit: Yes Annotation/Comment:: Chronically elevated. CKMB also chronically elevated. 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 SNOMED Code(s): 093643196 Code(s): I42.9 - CARDIOMYOPATHY, UNSPECIFIED Status: Acute Priority: High Current Visit: Yes - Problem List Review Problem List Initiated/Reviewed/Updated: Yes - My Orders Last 24 Hours: My Active Orders 06/21/17 05:11 EKG Documentation Completion [RC] ASDIRECTED 06/21/17 08:00 Digoxin [Lanoxin] 125 mcg PO DAILY 06/21/17 19:00 Consult to Occupational Therapy [OT Evaluation and Treatment] [CONS] Routine PT Evaluation and Treatment [CONS] Routine Sodium Chloride 0.9% @ 50 MLS/HR(1000ml) Sodium Chloride 0.9% [Normal Saline] 1 ,000 ml IV ASDIRECTED - Plan Plan:: 06/17/17 Eva Dent MD Still weak and some confusion. Diarrhea improved. 06/18/17 Eva Dent MD Not feeling well today. Had a chill episode after her shower. Then emesis and loose bm. Fatiqued. Not short of breath. Continue medical therapy. Also discussed with family members including daughter and son her medical condition, goals of treatment, with possible hospice consultation if her clinical condition does not start to improve. 06/19/17 Eva Dent MD Maybe feeling a little bit better today. Does improve with IV morphine and IV zofran. Hypotensive. C&S urine E-coli sensitive to ceftriaxone. Still very weak. Family still deciding on goals of treatment and further medical options. 06/20/17 Eva Dent MD Feels a little bit better. No emesis, no diarrhea today. Troponin markedly elevated. Still weak. Renal function decreased. Family wants continued impatient treatment but also want comfort care. Continue IV ceftriaxone, IV zofran, IV morphine. 06/21/17 Eva Dent MD Continues to improve. I&O noted. Will supplement with IV fluids, IV ceftriaxone. I asked her if she wanted to start PT-OT for strengthening or does she want to just rest in bed. She said she wants to try to get stronger. Again discussed with her daughter, son, [id number] the elevated troponin, dilated cardiomyopathy, pulmonary fibrosis. We again discussed hopice and end of life care. They are not quite ready for hospice since mother is now showing some clinical improvement and also their mom is not ready to give up on active medical care at this time. Needs inpatient status due to need to monitor and adjust fluid status, renal failure, infection, elevated troponin.
[2017-06-21] MEDS: Latanoprost 0.005% Ophth Soln 2.5 ML Bottle EYEBOTH SCH (19:05)
[2017-06-22] MEDS: Temazepam 15 MG Cap PO PRN (01:25)
[2017-06-22] MEDS: Omeprazole 20 MG Cap.CR PO SCH (07:25)
[2017-06-22] MEDS: Timolol Maleate 0.5% Ophth Soln 5 ML Bottle EYEBOTH SCH (07:25)
[2017-06-22] MEDS: Digoxin 125 MCG Tab PO SCH (07:25)
[2017-06-22] MEDS: Fluticasone Propionate Nasal Spray 16 GM Bottle NASBOTH SCH ×2 (07:25→17:41)
[2017-06-22] MEDS: Allopurinol 100 MG Tab PO SCH (07:26)
[2017-06-22] MEDS: predniSONE 5 MG Tab PO SCH (07:26)
[2017-06-22] MEDS: Fluconazole 100 MG Tab PO SCH (07:26)
[2017-06-22] MEDS: THEOPHYLLINE 100 MG PO SCH (07:27)
[2017-06-22] MEDS: Sodium Chloride 0.9% 10 ML Syringe FLUSH SCH ×2 (07:28→19:00)
--- NOTE | 2017-06-22 16:22 | PCM.PN ---
- General Info Date of Service: 06/22/17 Functional Status: Reports: Pain Controlled, Tolerating Diet - Review of Systems General: Reports: Weakness, Malaise HEENT: Reports: No Symptoms Pulmonary: Reports: Shortness of Breath Cardiovascular: Reports: No Symptoms Gastrointestinal: Reports: Decreased Appetite Genitourinary: Reports: No Symptoms Musculoskeletal: Reports: Other (generalized aches and pains) Skin: Reports: Bruising Neurological: Reports: Weakness Psychiatric: Reports: No Symptoms - Patient Data Vitals - Most Recent: Last Vital Signs Temp 97.7 F 06/22/17 11:54 Pulse 107 H 06/22/17 11:54 Resp 17 06/22/17 11:54 BP 92/70 06/22/17 11:54 Pulse Ox 99 06/22/17 11:54 Weight - Most Recent: 116 lb 6.395 oz I&O - Last 24 Hours: Intake & Output 06/22/17 06/22/17 06/22/17 06:59 14:59 22:59 Intake Total 618 470 Balance 618 470 Med Orders - Current: Current Medications Acetaminophen (Tylenol Extra Strength) 500 mg PO Q4H PRN PRN Reason: Pain Last Admin: 06/17/17 23:20 Dose: 500 mg Al Hydroxide/Mg Hydroxide (Mag-Al Plus) 30 ml PO DAILY PRN PRN Reason: gi upset Albuterol/Ipratropium (Duoneb 3.0-0.5 Mg/3 Ml) 3 ml NEB Q4H PRN PRN Reason: Dyspnea Allopurinol (Zyloprim) 100 mg PO DAILY [facility] Last Admin: 06/22/17 07:26 Dose: 100 mg Bisacodyl (Dulcolax) 5 mg PO DAILY PRN PRN Reason: Constipation Cholecalciferol (Vitamin D3) 2,000 units PO Q48H [facility] Last Admin: 06/21/17 08:47 Dose: 2,000 units Digoxin (Lanoxin) 125 mcg PO DAILY@1800 [facility] Fluconazole (Diflucan) 50 mg PO DAILY [facility] Last Admin: 06/22/17 07:26 Dose: 50 mg Fluticasone Propionate (Flonase) 0 gm NASBOTH BID [facility] Last Admin: 06/22/17 07:25 Dose: 1 spray Furosemide (Lasix) 40 mg IVPUSH NOW ONE Stop: 06/22/17 16:31 Furosemide (Lasix) 40 mg IVPUSH DAILY [facility] Ceftriaxone Sodium 1 gm/ (Sodium Chloride) 100 mls @ 200 mls/hr IV Q24H [facility] Last Admin: 06/21/17 15:28 Dose: 200 mls/hr Latanoprost (Xalatan 0.005% Ophth Soln) 0 ml EYEBOTH BEDTIME [facility] Last Admin: 06/21/17 19:05 Dose: 1 drop Morphine Sulfate (Morphine) 1 mg IVPUSH Q1H PRN PRN Reason: Pain Last Admin: 06/19/17 10:59 Dose: 1 mg Nitroglycerin (Nitrostat) 0.4 mg SL Q5M PRN PRN Reason: Chest Pain Theophylline [Isai- (24] 100 Mg) 200 mg PO DAILY [facility] Last Admin: 06/22/17 07:27 Dose: 200 mg Ondansetron HCl (Zofran) 4 mg IVPUSH Q4H PRN PRN Reason: Nausea Last Admin: 06/19/17 10:56 Dose: 4 mg Prednisone (Prednisone) 5 mg PO DAILY [facility] Last Admin: 06/22/17 07:26 Dose: 5 mg Sodium Chloride (Saline Flush) 10 ml FLUSH ASDIRECTED PRN PRN Reason: Keep Vein Open Last Admin: 06/21/17 15:28 Dose: 10 ml Sodium Chloride (Saline Flush) 10 ml FLUSH Q12HR [facility] Last Admin: 06/22/17 07:28 Dose: Not Given Temazepam (Restoril) 15 mg PO BEDTIME PRN PRN Reason: Insomnia Last Admin: 06/22/17 01:25 Dose: 15 mg Timolol Maleate (Timoptic 0.5% Ophth Soln) 0 ml EYEBOTH DAILY [facility] Last Admin: 06/22/17 07:25 Dose: 1 drop Discontinued Medications Apixaban (Eliquis) 2.5 mg PO BID [facility] Last Admin: 06/18/17 08:19 Dose: 2.5 mg Calcium Carbonate (Oystcal-D 625 Mg-125 Units) 1 tab PO DAILY [facility] Last Admin: 06/17/17 09:04 Dose: 1 tab Digoxin (Lanoxin) 250 mcg PO ONETIME ONE Stop: 06/19/17 18:01 Last Admin: 06/19/17 17:32 Dose: 250 mcg Digoxin (Lanoxin) 125 mcg PO DAILY [facility] Last Admin: 06/22/17 07:25 Dose: 125 mcg Furosemide (Lasix) 40 mg PO DAILY [facility] Last Admin: 06/17/17 08:57 Dose: 40 mg Sodium Chloride (Normal Saline) 500 mls @ 75 mls/hr IV ONETIME ONE Stop: 06/17/17 00:02 Last Admin: 06/16/17 18:10 Dose: 75 mls/hr Sodium Chloride (Normal Saline) 1,000 mls @ 50 mls/hr IV ASDIRECTED [facility] Stop: 06/22/17 14:59 Last Admin: 06/21/17 19:05 Dose: 50 mls/hr Isosorbide Mononitrate (Imdur) 15 mg PO BEDTIME [facility] Last Admin: 06/16/17 20:47 Dose: 15 mg Metoprolol Tartrate (Lopressor) 25 mg PO Q12HR [facility] Last Admin: 06/19/17 08:04 Dose: Not Given Omeprazole (Omeprazole) 40 mg PO ACBREAKFAST [facility] Last Admin: 06/22/17 07:25 Dose: 40 mg Potassium Chloride (Klor-Con 10) 10 meq PO DAILY [facility] Last Admin: 06/17/17 08:57 Dose: 10 meq Prednisone (Prednisone) 10 mg PO BID [facility] Last Admin: 06/17/17 09:05 Dose: 10 mg Prednisone (Prednisone) 10 mg PO DAILY [facility] Last Admin: 06/18/17 08:21 Dose: 10 mg Theophylline (Theophylline Anhydrous) 200 mg PO DAILY@1200 [facility] - Exam Quality Assessment: Supplemental Oxygen General: Alert, Cooperative, Mild Distress HEENT: Mucous Membr. Moist/[place] Neck: Trachea Midline Lungs: Decreased Breath Sounds, Crackles (bases), Other (respirations somewhat labored) Cardiovascular: Irregular Rhythm, Tachycardia, Murmurs GI/Abdominal Exam: Normal Bowel Sounds, Soft, Non-Tender (Female) Exam: Deferred Back Exam: Normal Inspection, Other (kyphosis) Extremities: Non-Tender, Pedal Edema (1+) Skin: Warm, Dry, Intact, Ecchymosis (from IV starts and blood draws) Neurological: No New Focal Deficit Psy/Mental Status: Alert, Normal Affect, Normal Mood - Problem List & Annotations (1) UTI (urinary tract infection) SNOMED Code(s): 23479951 Code(s): N39.0 - URINARY TRACT INFECTION, SITE NOT SPECIFIED Status: Acute Priority: High Current Visit: Yes Onset Date: ~06/14/17 Qualifiers: Urinary tract infection type: site unspecified Hematuria presence: without hematuria Qualified Code(s): N39.0 - Urinary tract infection, site not specified Annotation/Comment:: Increased weakness, tachycardia, elevated Lactic Acid, and WBC. Patient does not complain of UTI symptoms however had + dip and culture performed at clinic. Will treat with IV Rocephin and observe for further changes and patient response to treatment plan (2) COPD (chronic obstructive pulmonary disease) SNOMED Code(s): 68998670 Code(s): J44.9 - CHRONIC OBSTRUCTIVE PULMONARY DISEASE, UNSPECIFIED Status : Chronic Priority: Medium Current Visit: Yes (3) Pulmonary fibrosis SNOMED Code(s): 03448852 Code(s): J84.10 - PULMONARY FIBROSIS, UNSPECIFIED Status: Chronic Priority: Medium Current Visit: Yes (4) Hypertension SNOMED Code(s): 31122061 Code(s): I10 - ESSENTIAL (PRIMARY) HYPERTENSION Status: Chronic Priority : Low Current Visit: No Qualifiers: Hypertension type: essential hypertension Qualified Code(s): I10 - Essential (primary) hypertension Annotation/Comment:: Chronic. Blood pressure somewhat low in the emergency room. Will continue to observe and hold medications for HTN as needed. (5) Organic brain syndrome SNOMED Code(s): 643303203 Code(s): F09 - UNSP MENTAL DISORDER DUE TO KNOWN PHYSIOLOGICAL CONDITION Status: Chronic Priority: Medium Current Visit: No Annotation/Comment:: Stable by history (6) Palliative care patient SNOMED Code(s): 309917435 Code(s): Z51.5 - ENCOUNTER FOR PALLIATIVE CARE Status: Chronic Priority: Medium Current Visit: No Annotation/Comment:: As above (7) Peptic reflux disease SNOMED Code(s): 92256308 Code(s): K21.9 - GASTRO-ESOPHAGEAL REFLUX DISEASE WITHOUT ESOPHAGITIS Status: Chronic Priority: Low Current Visit: No Annotation/Comment:: No abdominal complaints. (8) Renal insufficiency SNOMED Code(s): 039690126 Code(s): N28.9 - DISORDER OF KIDNEY AND URETER, UNSPECIFIED Status: Chronic Priority: Medium Current Visit: No Annotation/Comment:: Continue to observe her renal status. (9) Rheumatoid arthritis SNOMED Code(s): 08508703 Code(s): M06.9 - RHEUMATOID ARTHRITIS, UNSPECIFIED Status: Chronic Priority: Low Current Visit: No Qualifiers: Rheumatoid arthritis location: multiple sites Rheumatoid factor presence: unspecified presence Qualified Code(s): M06.9 - Rheumatoid arthritis, unspecified Annotation/Comment:: Stable by history with current Plaquenil (10) Cardiomyopathy SNOMED Code(s): 02840077 Code(s): I42.9 - CARDIOMYOPATHY, UNSPECIFIED Status: Acute Priority: High Current Visit: Yes Qualifiers: Cardiomyopathy type: dilated Qualified Code(s): I42.0 - Dilated cardiomyopathy (11) Troponin level elevated SNOMED Code(s): 612425796, 810203770 Code(s): R79.89 - OTHER SPECIFIED ABNORMAL FINDINGS OF BLOOD CHEMISTRY Status: Chronic Priority: High Current Visit: Yes Annotation/Comment:: Chronically elevated. CKMB also chronically elevated. 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 SNOMED Code(s): 046102622 Code(s): I42.9 - CARDIOMYOPATHY, UNSPECIFIED Status: Acute Priority: High Current Visit: Yes (13) Tricuspid valve insufficiency, non-rheumatic Status: Acute Priority: High Current Visit: Yes (14) Mitral valve insufficiency, acquired SNOMED Code(s): 64135117 Code(s): I34.0 - NONRHEUMATIC MITRAL (VALVE) INSUFFICIENCY Status: Acute Priority: High Current Visit: Yes (15) Aortic regurgitation SNOMED Code(s): 17999508 Code(s): I35.1 - NONRHEUMATIC AORTIC (VALVE) INSUFFICIENCY Status: Acute Current Visit: Yes (16) Aortic valve regurgitation, nonrheumatic SNOMED Code(s): 276985982 Code(s): I35.1 - NONRHEUMATIC AORTIC (VALVE) INSUFFICIENCY Status: Acute Priority: High Current Visit: Yes (17) CHF, acute on chronic SNOMED Code(s): 79112297 Code(s): I50.9 - HEART FAILURE, UNSPECIFIED Status: Acute Priority: High Current Visit: Yes Qualifiers: Heart failure type: combined systolic and diastolic Qualified Code(s): I50.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 (18) GERD (gastroesophageal reflux disease) SNOMED Code(s): 048282604 Code(s): K21.9 - GASTRO-ESOPHAGEAL REFLUX DISEASE WITHOUT ESOPHAGITIS Status: Acute Priority: Medium Current Visit: Yes Qualifiers: Esophagitis presence: without esophagitis Qualified Code(s): K21.9 - Gastro -esophageal reflux disease without esophagitis (19) Glaucoma SNOMED Code(s): 53562683 Code(s): H40.9 - UNSPECIFIED GLAUCOMA Status: Acute Priority: Low Current Visit: Yes Qualifiers: Glaucoma type: open-angle Laterality: bilateral Glaucoma stage: indeterminate stage - Problem List Review Problem List Initiated/Reviewed/Updated: Yes - My Orders Last 24 Hours: My Active Orders 06/21/17 19:00 Consult to Occupational Therapy [OT Evaluation and Treatment] [CONS] Routine PT Evaluation and Treatment [CONS] Routine 06/22/17 16:30 Furosemide [Lasix] 40 mg IVPUSH NOW ONE 06/23/17 05:11 CBC WITH AUTO DIFF [HEME] Routine CMP [COMPREHENSIVE METABOLIC PN,CMP] [CHEM] Routine CRP [C-REACTIVE PROTEIN] [CHEM] Routine DIGOXIN [CHEM] Routine THEOPHYLLINE [CHEM] Routine 06/23/17 08:00 Furosemide [Lasix] 40 mg IVPUSH DAILY 06/23/17 18:00 Digoxin [Lanoxin] 125 mcg PO DAILY@1800 - Plan Plan:: 06/17/17 Eva Dent MD Still weak and some confusion. Diarrhea improved. 06/18/17 Eva Dent MD Not feeling well today. Had a chill episode after her shower. Then emesis and loose bm. Fatiqued. Not short of breath. Continue medical therapy. Also discussed with family members including daughter and son her medical condition, goals of treatment, with possible hospice consultation if her clinical condition does not start to improve. 06/19/17 Eva Dent MD Maybe feeling a little bit better today. Does improve with IV morphine and IV zofran. Hypotensive. C&S urine E-coli sensitive to ceftriaxone. Still very weak. Family still deciding on goals of treatment and further medical options. 06/20/17 Eva Dent MD Feels a little bit better. No emesis, no diarrhea today. Troponin markedly elevated. Still weak. Renal function decreased. Family wants continued impatient treatment but also want comfort care. Continue IV ceftriaxone, IV zofran, IV morphine. 06/21/17 Eva Dent MD Continues to improve. I&O noted. Will supplement with IV fluids, IV ceftriaxone. I asked her if she wanted to start PT-OT for strengthening or does she want to just rest in bed. She said she wants to try to get stronger. Again discussed with her daughter, son, [id number] the elevated troponin, dilated cardiomyopathy, pulmonary fibrosis. We again discussed hopice and end of life care. They are not quite ready for hospice since mother is now showing some clinical improvement and also their mom is not ready to give up on active medical care at this time. Needs inpatient status due to need to monitor and adjust fluid status, renal failure, infection, elevated troponin. 06/22/17 Eva Dent MD About the same she says. Daughter thinks her breathing is more labored today. Mckayla doesn't think her breathing is any different. Again discussed hospice care and end of life care with Mckayla, daughter, and son. Now needs IV lasix. Continue inpatient status for monitor of blood pressure (hypotension), monitor renal status, fluid status, infection.
[2017-06-22] MEDS: cefTRIAXone 1 GM in Sodium Chloride 0.9% 100 ML IV SCH (16:28)
[2017-06-22] MEDS: Sodium Chloride 0.9% 10 ML Syringe FLUSH PRN (16:28)
[2017-06-22] MEDS ORDERED: Furosemide 40 MG/4 ML VIAL IVPUSH ONE (16:30)
[2017-06-22] MEDS: Latanoprost 0.005% Ophth Soln 2.5 ML Bottle EYEBOTH SCH (19:00)
[2017-06-23] MEDS: Temazepam 15 MG Cap PO PRN (01:28)
[2017-06-23] MEDS ORDERED: Furosemide 40 MG/4 ML VIAL IVPUSH SCH (08:00)
[2017-06-23] MEDS: Fluconazole 100 MG Tab PO SCH (08:33)
[2017-06-23] MEDS: THEOPHYLLINE 100 MG PO SCH (08:33)
[2017-06-23] MEDS: Allopurinol 100 MG Tab PO SCH (08:34)
[2017-06-23] MEDS: predniSONE 5 MG Tab PO SCH (08:34)
[2017-06-23] MEDS: Sodium Chloride 0.9% 10 ML Syringe FLUSH SCH (08:35)
[2017-06-23] MEDS: Timolol Maleate 0.5% Ophth Soln 5 ML Bottle EYEBOTH SCH (08:37)
[2017-06-23] MEDS: Fluticasone Propionate Nasal Spray 16 GM Bottle NASBOTH SCH (08:37)
[2017-06-23] MEDS: Cholecalciferol (Vitamin D3) 1,000 Unit Tab PO SCH (08:41)
[2017-06-23] MEDS ORDERED: Saliva Substitute Oral Spray 120 ML Bottle MUCMEM PRN (10:38)
[2017-06-23 11:22] VITALS: BP 94/54
--- NOTE | 2017-06-23 14:02 | PCM.PN ---
- General Info Date of Service: 06/23/17 Functional Status: Reports: Pain Controlled - Review of Systems General: Reports: No Symptoms HEENT: Reports: No Symptoms Pulmonary: Reports: No Symptoms Cardiovascular: Reports: No Symptoms Gastrointestinal: Reports: No Symptoms Genitourinary: Reports: No Symptoms Musculoskeletal: Reports: No Symptoms Skin: Reports: No Symptoms Neurological: Reports: No Symptoms Psychiatric: Reports: No Symptoms - Patient Data Vitals - Most Recent: Last Vital Signs Temp 97.7 F 06/23/17 11:22 Pulse 99 06/23/17 11:22 Resp 22 H 06/23/17 11:22 BP 94/54 L 06/23/17 11:22 Pulse Ox 99 06/23/17 08:00 Weight - Most Recent: 116 lb 6.395 oz I&O - Last 24 Hours: Intake & Output 06/22/17 06/23/17 06/23/17 22:59 06:59 14:59 Intake Total 440 400 Output Total 1000 550 Balance -560 -550 400 Lab Results Last 24 Hours: Laboratory Results - last 24 hr 06/23/17 06/23/17 Range/Units 07:05 07:05 WBC 11.2 H (4.0-10.2) K/uL RBC 4.15 (3.77-5.09) M/uL Hgb 13.6 (11.7-15.5) g/dL Hct 41.2 (34.0-46.0) % MCV 99.3 H (84.0-98.0) fL MCH 32.8 (28.2-33.3) pg MCHC 33.0 (31.7-36.0) g/dL RDW 16.1 H (11.2-14.1) % Plt Count 143 L (150-350) K/uL Neut % (Auto) 77.5 (45.0-80.0) % Lymph % (Auto) 12.0 (10.0-50.0) % [place] % (Auto) 5.4 (2.0-14.0) % Eos % (Auto) 4.6 (0.0-5.0) % Baso % (Auto) 0.5 (0.0-2.0) % Neut # (Auto) 8.65 H (1.40-7.00) K/uL Lymph # (Auto) 1.34 (0.50-3.50) K/uL [place] # (Auto) 0.60 (0.00-1.00) K/uL Eos # (Auto) 0.51 H (0.00-0.50) K/uL Baso # (Auto) 0.06 (0.00-0.20) K/uL Sodium 136 (136-145) mmol/L Potassium 3.1 L (3.5-5.1) mmol/L Chloride 102 (98-107) mmol/L Carbon Dioxide 25.8 (21.0-32.0) mmol/L BUN 31 H (7-18) mg/dL Creatinine 0.95 (0.51-1.17) mg/dL Est Cr Clr Drug Dosing 39.37 mL/min Estimated GFR (MDRD) 57 mL/min Glucose 86 (74-106) mg/dL Calcium 8.7 (8.5-10.1) mg/dL Total Bilirubin 0.6 (0.2-1.0) mg/dL AST 23 (15-37) U/L ALT 30 (12-78) U/L Alkaline Phosphatase 100 (46-116) IU/L C-Reactive Protein 1.6 H (<=0.9) mg/dL Total Protein 5.6 L (6.4-8.2) g/dL Albumin 2.6 L (3.4-5.0) g/dL Digoxin 0.63 L (0.90-2.00) ng/mL Theophylline 11 (10-20) ug/dL Med Orders - Current: Current Medications Acetaminophen (Tylenol Extra Strength) 500 mg PO Q4H PRN PRN Reason: Pain Last Admin: 06/17/17 23:20 Dose: 500 mg Al Hydroxide/Mg Hydroxide (Mag-Al Plus) 30 ml PO DAILY PRN PRN Reason: gi upset Albuterol/Ipratropium (Duoneb 3.0-0.5 Mg/3 Ml) 3 ml NEB Q4H PRN PRN Reason: Dyspnea Allopurinol (Zyloprim) 100 mg PO DAILY [facility] Last Admin: 06/23/17 08:34 Dose: 100 mg Bisacodyl (Dulcolax) 5 mg PO DAILY PRN PRN Reason: Constipation Cholecalciferol (Vitamin D3) 2,000 units PO Q48H [facility] Last Admin: 06/23/17 08:41 Dose: 2,000 units Digoxin (Lanoxin) 125 mcg PO DAILY@1800 ROBERT Fluconazole (Diflucan) 50 mg PO DAILY [facility] Last Admin: 06/23/17 08:33 Dose: 50 mg Fluticasone Propionate (Flonase) 0 gm NASBOTH BID [facility] Last Admin: 06/23/17 08:37 Dose: 1 spray Furosemide (Lasix) 40 mg IVPUSH DAILY [facility] Last Admin: 06/23/17 08:35 Dose: 40 mg Ceftriaxone Sodium 1 gm/ (Sodium Chloride) 100 mls @ 200 mls/hr IV Q24H [facility] Last Admin: 06/22/17 16:28 Dose: 200 mls/hr Latanoprost (Xalatan 0.005% Ophth Soln) 0 ml EYEBOTH BEDTIME [facility] Last Admin: 06/22/17 19:00 Dose: 1 drop Morphine Sulfate (Morphine) 1 mg IVPUSH Q1H PRN PRN Reason: Pain Last Admin: 06/19/17 10:59 Dose: 1 mg Nitroglycerin (Nitrostat) 0.4 mg SL Q5M PRN PRN Reason: Chest Pain Theophylline [Isai- (24] 100 Mg) 200 mg PO DAILY [facility] Last Admin: 06/23/17 08:33 Dose: 200 mg Ondansetron HCl (Zofran) 4 mg IVPUSH Q4H PRN PRN Reason: Nausea Last Admin: 06/19/17 10:56 Dose: 4 mg Prednisone (Prednisone) 5 mg PO DAILY [facility] Last Admin: 06/23/17 08:34 Dose: 5 mg Saliva Substitute (Jayme-Stir Oral [place]) 1 ml MUCMEM ASDIRECTED PRN PRN Reason: Dry Mouth Last Admin: 06/23/17 12:32 Dose: 1 spray Sodium Chloride (Saline Flush) 10 ml FLUSH ASDIRECTED PRN PRN Reason: Keep Vein Open Last Admin: 06/22/17 16:28 Dose: 10 ml Sodium Chloride (Saline Flush) 10 ml FLUSH Q12HR [facility] Last Admin: 06/23/17 08:35 Dose: 10 ml Temazepam (Restoril) 15 mg PO BEDTIME PRN PRN Reason: Insomnia Last Admin: 06/23/17 01:28 Dose: 15 mg Timolol Maleate (Timoptic 0.5% Ophth Soln) 0 ml EYEBOTH DAILY [facility] Last Admin: 06/23/17 08:37 Dose: 1 drop Discontinued Medications Apixaban (Eliquis) 2.5 mg PO BID [facility] Last Admin: 06/18/17 08:19 Dose: 2.5 mg Calcium Carbonate (Oystcal-D 625 Mg-125 Units) 1 tab PO DAILY [facility] Last Admin: 06/17/17 09:04 Dose: 1 tab Digoxin (Lanoxin) 250 mcg PO ONETIME ONE Stop: 06/19/17 18:01 Last Admin: 06/19/17 17:32 Dose: 250 mcg Digoxin (Lanoxin) 125 mcg PO DAILY [facility] Last Admin: 06/22/17 07:25 Dose: 125 mcg Furosemide (Lasix) 40 mg PO DAILY [facility] Last Admin: 06/17/17 08:57 Dose: 40 mg Furosemide (Lasix) 40 mg IVPUSH NOW ONE Stop: 06/22/17 16:31 Last Admin: 06/22/17 16:30 Dose: 40 mg Sodium Chloride (Normal Saline) 500 mls @ 75 mls/hr IV ONETIME ONE Stop: 06/17/17 00:02 Last Admin: 06/16/17 18:10 Dose: 75 mls/hr Sodium Chloride (Normal Saline) 1,000 mls @ 50 mls/hr IV ASDIRECTED [facility] Stop: 06/22/17 14:59 Last Admin: 06/21/17 19:05 Dose: 50 mls/hr Isosorbide Mononitrate (Imdur) 15 mg PO BEDTIME [facility] Last Admin: 06/16/17 20:47 Dose: 15 mg Metoprolol Tartrate (Lopressor) 25 mg PO Q12HR [facility] Last Admin: 06/19/17 08:04 Dose: Not Given Omeprazole (Omeprazole) 40 mg PO ACBREAKFAST [facility] Last Admin: 06/22/17 07:25 Dose: 40 mg Potassium Chloride (Klor-Con 10) 10 meq PO DAILY [facility] Last Admin: 06/17/17 08:57 Dose: 10 meq Prednisone (Prednisone) 10 mg PO BID [facility] Last Admin: 06/17/17 09:05 Dose: 10 mg Prednisone (Prednisone) 10 mg PO DAILY [facility] Last Admin: 06/18/17 08:21 Dose: 10 mg Theophylline (Theophylline Anhydrous) 200 mg PO DAILY@1200 ROBERT - Exam Quality Assessment: Supplemental Oxygen, Urine Catheter General: Alert, Cooperative, No Acute Distress HEENT: Pupils Equal, Pupils Reactive, EOMI, Mucous Membr. Moist/[place] Neck: Trachea Midline, No JVD Lungs: Normal Respiratory Effort, Decreased Breath Sounds Cardiovascular: Irregular Rhythm GI/Abdominal Exam: Soft, Non-Tender, No Distention (Female) Exam: Deferred Back Exam: Normal Inspection Extremities: Non-Tender, Pedal Edema (mild) Skin: Warm, Dry, Intact, Ecchymosis (from IVs, blood draws) Neurological: No New Focal Deficit Psy/Mental Status: Alert, Normal Affect, Normal Mood - Problem List & Annotations (1) UTI (urinary tract infection) SNOMED Code(s): 36305795 Code(s): N39.0 - URINARY TRACT INFECTION, SITE NOT SPECIFIED Status: Acute Priority: High Current Visit: Yes Onset Date: ~06/14/17 Qualifiers: Urinary tract infection type: site unspecified Hematuria presence: without hematuria Qualified Code(s): N39.0 - Urinary tract infection, site not specified Annotation/Comment:: Increased weakness, tachycardia, elevated Lactic Acid, and WBC. Patient does not complain of UTI symptoms however had + dip and culture performed at clinic. Will treat with IV Rocephin and observe for further changes and patient response to treatment plan (2) COPD (chronic obstructive pulmonary disease) SNOMED Code(s): 07986741 Code(s): J44.9 - CHRONIC OBSTRUCTIVE PULMONARY DISEASE, UNSPECIFIED Status : Chronic Priority: Medium Current Visit: Yes (3) Pulmonary fibrosis SNOMED Code(s): 94196815 Code(s): J84.10 - PULMONARY FIBROSIS, UNSPECIFIED Status: Chronic Priority: Medium Current Visit: Yes (4) Hypertension SNOMED Code(s): 21002785 Code(s): I10 - ESSENTIAL (PRIMARY) HYPERTENSION Status: Chronic Priority : Low Current Visit: No Qualifiers: Hypertension type: essential hypertension Qualified Code(s): I10 - Essential (primary) hypertension Annotation/Comment:: Chronic. Blood pressure somewhat low in the emergency room. Will continue to observe and hold medications for HTN as needed. (5) Organic brain syndrome SNOMED Code(s): 776452071 Code(s): F09 - UNSP MENTAL DISORDER DUE TO KNOWN PHYSIOLOGICAL CONDITION Status: Chronic Priority: Medium Current Visit: No Annotation/Comment:: Stable by history (6) Palliative care patient SNOMED Code(s): 745247785 Code(s): Z51.5 - ENCOUNTER FOR PALLIATIVE CARE Status: Chronic Priority: Medium Current Visit: No Annotation/Comment:: As above (7) Peptic reflux disease SNOMED Code(s): 20412112 Code(s): K21.9 - GASTRO-ESOPHAGEAL REFLUX DISEASE WITHOUT ESOPHAGITIS Status: Chronic Priority: Low Current Visit: No Annotation/Comment:: No abdominal complaints. (8) Renal insufficiency SNOMED Code(s): 169748500 Code(s): N28.9 - DISORDER OF KIDNEY AND URETER, UNSPECIFIED Status: Chronic Priority: Medium Current Visit: No Annotation/Comment:: Continue to observe her renal status. (9) Rheumatoid arthritis SNOMED Code(s): 94733096 Code(s): M06.9 - RHEUMATOID ARTHRITIS, UNSPECIFIED Status: Chronic Priority: Low Current Visit: No Qualifiers: Rheumatoid arthritis location: multiple sites Rheumatoid factor presence: unspecified presence Qualified Code(s): M06.9 - Rheumatoid arthritis, unspecified Annotation/Comment:: Stable by history with current Plaquenil (10) Cardiomyopathy SNOMED Code(s): 66423114 Code(s): I42.9 - CARDIOMYOPATHY, UNSPECIFIED Status: Acute Priority: High Current Visit: Yes Qualifiers: Cardiomyopathy type: dilated Qualified Code(s): I42.0 - Dilated cardiomyopathy (11) Troponin level elevated SNOMED Code(s): 840970351, 176700397 Code(s): R79.89 - OTHER SPECIFIED ABNORMAL FINDINGS OF BLOOD CHEMISTRY Status: Chronic Priority: High Current Visit: Yes Annotation/Comment:: Chronically elevated. CKMB also chronically elevated. 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 SNOMED Code(s): 953487761 Code(s): I42.9 - CARDIOMYOPATHY, UNSPECIFIED Status: Acute Priority: High Current Visit: Yes (13) Tricuspid valve insufficiency, non-rheumatic Status: Acute Priority: High Current Visit: Yes (14) Mitral valve insufficiency, acquired SNOMED Code(s): 02264009 Code(s): I34.0 - NONRHEUMATIC MITRAL (VALVE) INSUFFICIENCY Status: Acute Priority: High Current Visit: Yes (15) Aortic regurgitation SNOMED Code(s): 53624494 Code(s): I35.1 - NONRHEUMATIC AORTIC (VALVE) INSUFFICIENCY Status: Acute Current Visit: Yes (16) Aortic valve regurgitation, nonrheumatic SNOMED Code(s): 527008666 Code(s): I35.1 - NONRHEUMATIC AORTIC (VALVE) INSUFFICIENCY Status: Acute Priority: High Current Visit: Yes (17) CHF, acute on chronic SNOMED Code(s): 03430089 Code(s): I50.9 - HEART FAILURE, UNSPECIFIED Status: Acute Priority: High Current Visit: Yes Qualifiers: Heart failure type: combined systolic and diastolic Qualified Code(s): I50.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 (18) GERD (gastroesophageal reflux disease) SNOMED Code(s): 094979673 Code(s): K21.9 - GASTRO-ESOPHAGEAL REFLUX DISEASE WITHOUT ESOPHAGITIS Status: Acute Priority: Medium Current Visit: Yes Qualifiers: Esophagitis presence: without esophagitis Qualified Code(s): K21.9 - Gastro -esophageal reflux disease without esophagitis (19) Glaucoma SNOMED Code(s): 48258666 Code(s): H40.9 - UNSPECIFIED GLAUCOMA Status: Acute Priority: Low Current Visit: Yes Qualifiers: Glaucoma type: open-angle Laterality: bilateral Glaucoma stage: indeterminate stage - Problem List Review Problem List Initiated/Reviewed/Updated: Yes - My Orders Last 24 Hours: My Active Orders 06/23/17 08:00 Furosemide [Lasix] 40 mg IVPUSH DAILY 06/23/17 10:38 Carboxymethylcellulose/Lytes [Jayme-Stir Oral [place]] 1 ml MUCMEM ASDIRECTED PRN 06/23/17 13:46 Discontinue Saline Lock [Peripheral IV Discontinue] [OM.PC] Routine 06/23/17 13:57 Ready for Discharge [RC] PER UNIT ROUTINE 06/23/17 18:00 Digoxin [Lanoxin] 125 mcg PO DAILY@1800 - Plan Plan:: 06/17/17 Eva Dent MD Still weak and some confusion. Diarrhea improved. 06/18/17 Eva Dent MD Not feeling well today. Had a chill episode after her shower. Then emesis and loose bm. Fatiqued. Not short of breath. Continue medical therapy. Also discussed with family members including daughter and son her medical condition, goals of treatment, with possible hospice consultation if her clinical condition does not start to improve. 06/19/17 Eva Dent MD Maybe feeling a little bit better today. Does improve with IV morphine and IV zofran. Hypotensive. C&S urine E-coli sensitive to ceftriaxone. Still very weak. Family still deciding on goals of treatment and further medical options. 06/20/17 Eva Dent MD Feels a little bit better. No emesis, no diarrhea today. Troponin markedly elevated. Still weak. Renal function decreased. Family wants continued impatient treatment but also want comfort care. Continue IV ceftriaxone, IV zofran, IV morphine. 06/21/17 Eva Dent MD Continues to improve. I&O noted. Will supplement with IV fluids, IV ceftriaxone. I asked her if she wanted to start PT-OT for strengthening or does she want to just rest in bed. She said she wants to try to get stronger. Again discussed with her daughter, son, [id number] the elevated troponin, dilated cardiomyopathy, pulmonary fibrosis. We again discussed hopice and end of life care. They are not quite ready for hospice since mother is now showing some clinical improvement and also their mom is not ready to give up on active medical care at this time. Needs inpatient status due to need to monitor and adjust fluid status, renal failure, infection, elevated troponin. 06/22/17 Eva Dent MD About the same she says. Daughter thinks her breathing is more labored today. Mckayla doesn't think her breathing is any different. Again discussed hospice care and end of life care with Mckayla, daughter, and son. Now needs IV lasix. Continue inpatient status for monitor of blood pressure (hypotension), monitor renal status, fluid status, infection. 06/23/17 Eva Dent MD Feeling okay. The urine came fast and a lot last night she says. Hopkins placed. She wants to keep the hopkins in place. Medically stable and will discharge to [place] with PT.
--- NOTE | 2017-06-23 14:02 | PCM.DCSUM1 ---
Discharge Summary - Discharge Data Discharge Date: 06/23/17 Discharge Disposition: DC/Tfer to [facility] Condition: Good - Discharge Diagnosis/Problem(s) (1) UTI (urinary tract infection) SNOMED Code(s): 91326747 ICD Code: N39.0 - URINARY TRACT INFECTION, SITE NOT SPECIFIED Status: Acute Priority: High Current Visit: Yes Onset Date: ~06/14/17 Problem Details: Increased weakness, tachycardia, elevated Lactic Acid, and WBC. Patient does not complain of UTI symptoms however had + dip and culture performed at clinic. Will treat with IV Rocephin and observe for further changes and patient response to treatment plan Qualifiers: Urinary tract infection type: site unspecified Hematuria presence: without hematuria Qualified Code(s): N39.0 - Urinary tract infection, site not specified (2) COPD (chronic obstructive pulmonary disease) SNOMED Code(s): 58797447 ICD Code: J44.9 - CHRONIC OBSTRUCTIVE PULMONARY DISEASE, UNSPECIFIED Status : Chronic Priority: Medium Current Visit: Yes (3) Pulmonary fibrosis SNOMED Code(s): 75178820 ICD Code: J84.10 - PULMONARY FIBROSIS, UNSPECIFIED Status: Chronic Priority: Medium Current Visit: Yes (4) Hypertension SNOMED Code(s): 29627491 ICD Code: I10 - ESSENTIAL (PRIMARY) HYPERTENSION Status: Chronic Priority : Low Current Visit: No Problem Details: Chronic. Blood pressure somewhat low in the emergency room. Will continue to observe and hold medications for HTN as needed. Qualifiers: Hypertension type: essential hypertension Qualified Code(s): I10 - Essential (primary) hypertension (5) Organic brain syndrome SNOMED Code(s): 761519026 ICD Code: F09 - UNSP MENTAL DISORDER DUE TO KNOWN PHYSIOLOGICAL CONDITION Status: Chronic Priority: Medium Current Visit: No Problem Details: Stable by history (6) Palliative care patient SNOMED Code(s): 490511373 ICD Code: Z51.5 - ENCOUNTER FOR PALLIATIVE CARE Status: Chronic Priority : Medium Current Visit: No Problem Details: As above (7) Peptic reflux disease SNOMED Code(s): 79343098 ICD Code: K21.9 - GASTRO-ESOPHAGEAL REFLUX DISEASE WITHOUT ESOPHAGITIS Status: Chronic Priority: Low Current Visit: No Problem Details: No abdominal complaints. (8) Renal insufficiency SNOMED Code(s): 943123586 ICD Code: N28.9 - DISORDER OF KIDNEY AND URETER, UNSPECIFIED Status: Chronic Priority: Medium Current Visit: No Problem Details: Continue to observe her renal status. (9) Rheumatoid arthritis SNOMED Code(s): 56983060 ICD Code: M06.9 - RHEUMATOID ARTHRITIS, UNSPECIFIED Status: Chronic Priority: Low Current Visit: No Problem Details: Stable by history with current Plaquenil Qualifiers: Rheumatoid arthritis location: multiple sites Rheumatoid factor presence: unspecified presence Qualified Code(s): M06.9 - Rheumatoid arthritis, unspecified (10) Cardiomyopathy SNOMED Code(s): 29572662 ICD Code: I42.9 - CARDIOMYOPATHY, UNSPECIFIED Status: Acute Priority: High Current Visit: Yes Qualifiers: Cardiomyopathy type: dilated Qualified Code(s): I42.0 - Dilated cardiomyopathy (11) Troponin level elevated SNOMED Code(s): 867859616, 904175489 ICD Code: R79.89 - OTHER SPECIFIED ABNORMAL FINDINGS OF BLOOD CHEMISTRY Status: Chronic Priority: High Current Visit: Yes Problem Details: Chronically elevated. CKMB also chronically elevated. 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 SNOMED Code(s): 833579990 ICD Code: I42.9 - CARDIOMYOPATHY, UNSPECIFIED Status: Acute Priority: High Current Visit: Yes (13) Tricuspid valve insufficiency, non-rheumatic Status: Acute Priority: High Current Visit: Yes (14) Mitral valve insufficiency, acquired SNOMED Code(s): 08743592 ICD Code: I34.0 - NONRHEUMATIC MITRAL (VALVE) INSUFFICIENCY Status: Acute Priority: High Current Visit: Yes (15) Aortic regurgitation SNOMED Code(s): 30102452 ICD Code: I35.1 - NONRHEUMATIC AORTIC (VALVE) INSUFFICIENCY Status: Acute Current Visit: Yes (16) Aortic valve regurgitation, nonrheumatic SNOMED Code(s): 207002360 ICD Code: I35.1 - NONRHEUMATIC AORTIC (VALVE) INSUFFICIENCY Status: Acute Priority: High Current Visit: Yes (17) CHF, acute on chronic SNOMED Code(s): 80972520 ICD Code: I50.9 - HEART FAILURE, UNSPECIFIED Status: Acute Priority: High Current Visit: Yes Qualifiers: Heart failure type: combined systolic and diastolic Qualified Code(s): I50.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 (18) GERD (gastroesophageal reflux disease) SNOMED Code(s): 125220484 ICD Code: K21.9 - GASTRO-ESOPHAGEAL REFLUX DISEASE WITHOUT ESOPHAGITIS Status: Acute Priority: Medium Current Visit: Yes Qualifiers: Esophagitis presence: without esophagitis Qualified Code(s): K21.9 - Gastro -esophageal reflux disease without esophagitis (19) Glaucoma SNOMED Code(s): 01451311 ICD Code: H40.9 - UNSPECIFIED GLAUCOMA Status: Acute Priority: Low Current Visit: Yes Qualifiers: Glaucoma type: open-angle Laterality: bilateral Glaucoma stage: indeterminate stage - Patient Summary/Data Consults: Consultations 06/21/17 19:00 Consult to Occupational Therapy [OT Evaluation and Treatment] [CONS] Routine PT Evaluation and Treatment [CONS] Routine - Patient Instructions Diet: Usual Diet as Tolerated Activity: As Tolerated Driving: Do Not Drive Showering/Bathing: May Shower Other/Special Instructions: Hopkins catheter to gravity. Routine hopkins catheter cares. O2 2-4 LPM per nasal canula prn. PT-OT evaluate and treat. - Discharge Plan Prescriptions/Med Rec: Digoxin 125 mcg PO DAILY@1800 #30 tablet Furosemide [Lasix] 20 mg PO DAILY #30 tab predniSONE 5 mg PO DAILY #30 tablet Home Medications: Home Meds Cholecalciferol (Vitamin D3) [Vitamin D3] 2,000 units PO Q48H 04/22/17 [History] Timolol Maleate [Timoptic 0.5% Ophth Soln] 1 drop EYEBOTH DAILY #1 bottle [Rx] Acetaminophen [Tylenol Extra Strength] 500 mg PO Q4H PRN 06/02/17 [History] Fluticasone Propionate [Flonase] 1 spray NASBOTH BID 06/02/17 [History] Latanoprost 1 drop EYEBOTH BEDTIME 06/02/17 [History] Mag Hydrox/Al Hydrox/Simeth [Antacid Liquid] 30 ml PO DAILY PRN 06/02/17 [ History] Nitroglycerin [Nitrostat] 0.4 mg SL Q5M PRN 06/04/17 [History] Allopurinol [Zyloprim] 100 mg PO DAILY #30 tab 06/06/17 [Rx] Theophylline [Isai-24] 200 mg PO DAILY #30 cap.er 06/06/17 [Rx] Albuterol/Ipratropium [DuoNeb 3.0-0.5 MG/3 ML] 3 ml NEB Q4H PRN 06/16/17 [ History] Temazepam 15 mg PO BEDTIME PRN 06/16/17 [History] Carboxymethylcellulose/Lytes [Jayme-Stir Oral [place]] 1 ml MUCMEM ASDIRECTED PRN bottle 06/23/17 [Rx] Digoxin 125 mcg PO DAILY@1800 #30 tablet 06/23/17 [Rx] Furosemide [Lasix] 20 mg PO DAILY #30 tab 06/23/17 [Rx] predniSONE 5 mg PO DAILY #30 tablet 06/23/17 [Rx] Patient Handouts: Urinary Tract Infection, Adult Forms: ED Department Discharge Referrals: Sheets-Aline Dent MD [Primary Care Provider] - - Discharge Summary/Plan Comment DC Time >30 min.: No - Patient Data Vitals - Most Recent: Last Vital Signs Temp 97.7 F 06/23/17 11:22 Pulse 99 06/23/17 11:22 Resp 22 H 06/23/17 11:22 BP 94/54 L 06/23/17 11:22 Pulse Ox 99 06/23/17 08:00 Weight - Most Recent: 116 lb 6.395 oz I&O - Last 24 hours: Intake & Output 06/22/17 06/23/17 06/23/17 22:59 06:59 14:59 Intake Total 440 400 Output Total 1000 550 Balance -560 -550 400 Lab Results - Last 24 hrs: Laboratory Results - last 24 hr 06/23/17 06/23/17 Range/Units 07:05 07:05 WBC 11.2 H (4.0-10.2) K/uL RBC 4.15 (3.77-5.09) M/uL Hgb 13.6 (11.7-15.5) g/dL Hct 41.2 (34.0-46.0) % MCV 99.3 H (84.0-98.0) fL MCH 32.8 (28.2-33.3) pg MCHC 33.0 (31.7-36.0) g/dL RDW 16.1 H (11.2-14.1) % Plt Count 143 L (150-350) K/uL Neut % (Auto) 77.5 (45.0-80.0) % Lymph % (Auto) 12.0 (10.0-50.0) % [place] % (Auto) 5.4 (2.0-14.0) % Eos % (Auto) 4.6 (0.0-5.0) % Baso % (Auto) 0.5 (0.0-2.0) % Neut # (Auto) 8.65 H (1.40-7.00) K/uL Lymph # (Auto) 1.34 (0.50-3.50) K/uL [place] # (Auto) 0.60 (0.00-1.00) K/uL Eos # (Auto) 0.51 H (0.00-0.50) K/uL Baso # (Auto) 0.06 (0.00-0.20) K/uL Sodium 136 (136-145) mmol/L Potassium 3.1 L (3.5-5.1) mmol/L Chloride 102 (98-107) mmol/L Carbon Dioxide 25.8 (21.0-32.0) mmol/L BUN 31 H (7-18) mg/dL Creatinine 0.95 (0.51-1.17) mg/dL Est Cr Clr Drug Dosing 39.37 mL/min Estimated GFR (MDRD) 57 mL/min Glucose 86 (74-106) mg/dL Calcium 8.7 (8.5-10.1) mg/dL Total Bilirubin 0.6 (0.2-1.0) mg/dL AST 23 (15-37) U/L ALT 30 (12-78) U/L Alkaline Phosphatase 100 (46-116) IU/L C-Reactive Protein 1.6 H (<=0.9) mg/dL Total Protein 5.6 L (6.4-8.2) g/dL Albumin 2.6 L (3.4-5.0) g/dL Digoxin 0.63 L (0.90-2.00) ng/mL Theophylline 11 (10-20) ug/dL Med Orders - Current: Current Medications Acetaminophen (Tylenol Extra Strength) 500 mg PO Q4H PRN PRN Reason: Pain Last Admin: 06/17/17 23:20 Dose: 500 mg Al Hydroxide/Mg Hydroxide (Mag-Al Plus) 30 ml PO DAILY PRN PRN Reason: gi upset Albuterol/Ipratropium (Duoneb 3.0-0.5 Mg/3 Ml) 3 ml NEB Q4H PRN PRN Reason: Dyspnea Allopurinol (Zyloprim) 100 mg PO DAILY [facility] Last Admin: 06/23/17 08:34 Dose: 100 mg Bisacodyl (Dulcolax) 5 mg PO DAILY PRN PRN Reason: Constipation Cholecalciferol (Vitamin D3) 2,000 units PO Q48H [facility] Last Admin: 06/23/17 08:41 Dose: 2,000 units Digoxin (Lanoxin) 125 mcg PO DAILY@1800 [facility] Fluconazole (Diflucan) 50 mg PO DAILY [facility] Last Admin: 06/23/17 08:33 Dose: 50 mg Fluticasone Propionate (Flonase) 0 gm NASBOTH BID [facility] Last Admin: 06/23/17 08:37 Dose: 1 spray Furosemide (Lasix) 40 mg IVPUSH DAILY [facility] Last Admin: 06/23/17 08:35 Dose: 40 mg Ceftriaxone Sodium 1 gm/ (Sodium Chloride) 100 mls @ 200 mls/hr IV Q24H [facility] Last Admin: 06/22/17 16:28 Dose: 200 mls/hr Latanoprost (Xalatan 0.005% Oph Soln) 0 ml EYEBOTH BEDTIME [facility] Last Admin: 06/22/17 19:00 Dose: 1 drop Morphine Sulfate (Morphine) 1 mg IVPUSH Q1H PRN PRN Reason: Pain Last Admin: 06/19/17 10:59 Dose: 1 mg Nitroglycerin (Nitrostat) 0.4 mg SL Q5M PRN PRN Reason: Chest Pain Theophylline [Isai- (24] 100 Mg) 200 mg PO DAILY [facility] Last Admin: 06/23/17 08:33 Dose: 200 mg Ondansetron HCl (Zofran) 4 mg IVPUSH Q4H PRN PRN Reason: Nausea Last Admin: 06/19/17 10:56 Dose: 4 mg Prednisone (Prednisone) 5 mg PO DAILY [facility] Last Admin: 06/23/17 08:34 Dose: 5 mg Saliva Substitute (Jayme-Stir Oral [place]) 1 ml MUCMEM ASDIRECTED PRN PRN Reason: Dry Mouth Last Admin: 06/23/17 12:32 Dose: 1 spray Sodium Chloride (Saline Flush) 10 ml FLUSH ASDIRECTED PRN PRN Reason: Keep Vein Open Last Admin: 06/22/17 16:28 Dose: 10 ml Sodium Chloride (Saline Flush) 10 ml FLUSH Q12HR [facility] Last Admin: 06/23/17 08:35 Dose: 10 ml Temazepam (Restoril) 15 mg PO BEDTIME PRN PRN Reason: Insomnia Last Admin: 06/23/17 01:28 Dose: 15 mg Timolol Maleate (Timoptic 0.5% Ophth Soln) 0 ml EYEBOTH DAILY [facility] Last Admin: 06/23/17 08:37 Dose: 1 drop Discontinued Medications Apixaban (Eliquis) 2.5 mg PO BID [facility] Last Admin: 06/18/17 08:19 Dose: 2.5 mg Calcium Carbonate (Oystcal-D 625 Mg-125 Units) 1 tab PO DAILY [facility] Last Admin: 06/17/17 09:04 Dose: 1 tab Digoxin (Lanoxin) 250 mcg PO ONETIME ONE Stop: 06/19/17 18:01 Last Admin: 06/19/17 17:32 Dose: 250 mcg Digoxin (Lanoxin) 125 mcg PO DAILY [facility] Last Admin: 06/22/17 07:25 Dose: 125 mcg Furosemide (Lasix) 40 mg PO DAILY [facility] Last Admin: 06/17/17 08:57 Dose: 40 mg Furosemide (Lasix) 40 mg IVPUSH NOW ONE Stop: 06/22/17 16:31 Last Admin: 06/22/17 16:30 Dose: 40 mg Sodium Chloride (Normal Saline) 500 mls @ 75 mls/hr IV ONETIME ONE Stop: 06/17/17 00:02 Last Admin: 06/16/17 18:10 Dose: 75 mls/hr Sodium Chloride (Normal Saline) 1,000 mls @ 50 mls/hr IV ASDIRECTED [facility] Stop: 06/22/17 14:59 Last Admin: 06/21/17 19:05 Dose: 50 mls/hr Isosorbide Mononitrate (Imdur) 15 mg PO BEDTIME [facility] Last Admin: 06/16/17 20:47 Dose: 15 mg Metoprolol Tartrate (Lopressor) 25 mg PO Q12HR [facility] Last Admin: 06/19/17 08:04 Dose: Not Given Omeprazole (Omeprazole) 40 mg PO ACBREAKFAST [facility] Last Admin: 06/22/17 07:25 Dose: 40 mg Potassium Chloride (Klor-Con 10) 10 meq PO DAILY [facility] Last Admin: 06/17/17 08:57 Dose: 10 meq Prednisone (Prednisone) 10 mg PO BID [facility] Last Admin: 06/17/17 09:05 Dose: 10 mg Prednisone (Prednisone) 10 mg PO DAILY [facility] Last Admin: 06/18/17 08:21 Dose: 10 mg Theophylline (Theophylline Anhydrous) 200 mg PO DAILY@1200 [facility] *Q Meaningful Use (DIS) - VTE *Q VTE Criteria *Q: - Stroke *Q Stroke Criteria *Q: - AMI *Q AMI Criteria *Q:
[2017-06-23] MEDS ORDERED: Digoxin 125 MCG Tab PO SCH (18:00)
== END 2017-06-23 14:25 | DRG 689 ==
LOC: LL.ED 12:15 → UNDOADMIN 15:13 → LL.MS 15:13 → UNDODISIN 06-23 14:25
PROVIDERS: ADMIT Emergency Medicine; ATTEND Family Medicine
DX: N39.0 Urinary tract infection, site not specified (principal); I50.43 Acute on chronic combined systolic (congestive) and diastolic (congestive) heart failure; I13.0 Hypertensive heart and chronic kidney disease with heart failure and stage 1 through stage 4 chronic kidney disease, or unspecified chronic kidney disease; I42.9 Cardiomyopathy, unspecified; E87.1 Hypo-osmolality and hyponatremia; N18.9 Chronic kidney disease, unspecified; R79.89 Other specified abnormal findings of blood chemistry; R23.3 Spontaneous ecchymoses; E78.5 Hyperlipidemia, unspecified; M06.9 Rheumatoid arthritis, unspecified; K21.9 Gastro-esophageal reflux disease without esophagitis; F09 Unspecified mental disorder due to known physiological condition; I08.3 Combined rheumatic disorders of mitral, aortic and tricuspid valves; I48.91 Unspecified atrial fibrillation; I25.10 Atherosclerotic heart disease of native coronary artery without angina pectoris; R01.1 Cardiac murmur, unspecified; J44.9 Chronic obstructive pulmonary disease, unspecified; J84.10 Pulmonary fibrosis, unspecified; G30.9 Alzheimer's disease, unspecified; F02.80 Dementia in other diseases classified elsewhere, unspecified severity, without behavioral disturbance, psychotic disturbance, mood disturbance, and anxiety; F41.8 Other specified anxiety disorders; E83.42 Hypomagnesemia; D64.9 Anemia, unspecified; H40.10X4 Unspecified open-angle glaucoma, indeterminate stage; I25.2 Old myocardial infarction; Z88.8 Allergy status to other drugs, medicaments and biological substances; Z79.899 Other long term (current) drug therapy; Z87.891 Personal history of nicotine dependence; Z51.5 Encounter for palliative care
CPT/HCPCS: 36000; 36415; 51702; 71046; 80048; 80053; 80162; 80198; 81001; 82550; 82553; 83605; 83880; 84484; 84550; 85025; 85610; 85730; 86140; 87086; 87088; 87186; 93005; 97165-GO; 99284; A9270-GY; J0696; J1940; J2270; J2405; J7030; J7040; J7050